=== PATIENT | female | born 1945 | race Caucasian/White ===

== ENCOUNTER → 2016-08-30 | Outpatient (CLI) | payer MEDICARE, MEDICAID ==
--- NOTE | 2016-09-01 13:34 | ECHOCARDIOGRAPHY REPORT ---
PROCEDURE PHYSICIAN: TATE LAURA DATE OF PROCEDURE: 08/30/2016 TWO DIMENSIONAL ECHOCARDIOGRAM REPORT PRIMARY PHYSICIAN: OTHER PHYSICIAN: REFERRING PHYSICIAN: Dr. Lexi Victor ORDERING PHYSICIAN: INDICATION FOR THE PROCEDURE: Hypertension MEASUREMENTS DERIVED VALUES LV DIAMETER (LAX) NORMALS NORMALS Diastolic 3.7 (3.6-5.2) Eject. Fract. 60% (60%+/-6%) Systolic (2.3-3.9) Diastolic Vol. % Shortening (0.22-0.42) Systolic Vol. Aortic Root IVS THICKNESS Diastolic 1. (0.6-1.1) LVPW THICKNESS Diastolic 1.1 (0.6-1.1) LA DIAMETER Systolic 2.4 (2.1-3.7) FINDINGS: 1. Technical quality is good. 2. The left ventricle is normal in size with normal contractility. Systolic function appeared to be normal. Estimated ejection fraction 60%. 3. The left atrium is normal in size. No clot or thrombus were seen within the left atrium. 4. The right atrium and right ventricle are normal in size. No clot or thrombus were seen within the right side. 5. Mitral valve is normal in morphology with mild mitral regurgitation noted by color Doppler flow. No mitral valve prolapse. No mitral valve stenosis. 6. Aortic valve is trileaflet with normal opening and closing pattern. No significant aortic stenosis or regurgitation was seen. 7. Tricuspid valve is normal in morphology with mild tricuspid regurgitation noted by color Doppler flow. Doppler across tricuspid valve estimated pulmonary artery pressure of 16+ right atrial pressure. 8. Pulmonic valve is functioning normally. 9. No pericardial effusion. CONCLUSION: 1. Normal left ventricular size and systolic function. Estimated ejection fraction 60%. 2. Mild mitral and tricuspid regurgitation. 3. Estimated pulmonary artery pressure of 25 mmHg. Job ID: [id number] Dictated Date: 09/01/2016 10:11:[address] Production Date: 09/01/2016 13:30:16 / felipe
== END ==
LOC: CARD 13:12
PROVIDERS: ATTEND Internal Medicine Cardiovascular Disease
DX: I12.9 Hypertensive chronic kidney disease with stage 1 through stage 4 chronic kidney disease, or unspecified chronic kidney disease (principal); E78.2 Mixed hyperlipidemia; N18.3 Chronic kidney disease, stage 3 (moderate); E13.9 Other specified diabetes mellitus without complications
CPT/HCPCS: 93306

== ENCOUNTER → 2017-03-10 | Outpatient (CLI) | payer MEDICARE, MEDICAID ==
--- NOTE | 2017-03-10 20:04 | Diagnostic Imaging Report ---
Bilateral screening mammogram 2D views with tomosynthesis The current study was also evaluated with a Computer Aided Detection (CAD) system. Indication: Screening. No current complaints stated on the questionnaire. COMPARISON: 02/17/15. FINDINGS: The breasts are composed of scattered fibroglandular densities. There are scattered benign appearing and vascular calcifications seen. Allowing for technique and positional differences, no suspicious change is seen. IMPRESSION: No significant change. ACR BI-RADS Category 2: Benign findings. Result letter will be mailed to the patient. Note: At least 10% of breast cancer is not imaged by mammography. Dictated by: Dictated on workstation # [id number]
== END ==
LOC: RAD 10:42
PROVIDERS: ATTEND Family Medicine
DX: Z12.31 Encounter for screening mammogram for malignant neoplasm of breast (principal)
CPT/HCPCS: 77067

== ENCOUNTER → 2017-06-27 | Outpatient (CLI) | payer MEDICARE, MEDICAID ==
--- NOTE | 2017-06-27 11:36 | Diagnostic Imaging Report ---
INDICATION: Chest pain and cough. TIME OF EXAM: 11:18 a.m. Correlation is made with prior study from 03/07/2011. FINDINGS: The heart size is normal. There is mild right convexity scoliotic curvature. No infiltrates are seen. No effusion or pneumothorax is identified. IMPRESSION: No acute cardiopulmonary process is detected. Dictated by: Dictated on workstation # [id number]
== END ==
LOC: RAD 10:49
PROVIDERS: ATTEND Family Medicine
DX: R07.9 Chest pain, unspecified (principal); R05 Cough
CPT/HCPCS: 71046

== ENCOUNTER → 2017-07-02 | Outpatient (CLI) | payer MEDICARE, MEDICAID ==
[~2017-07-02] MED LIST: REGADENOSON 0.4 MG/5 ML SYR (LEXISCAN) IV ONE
[2017-07-02] MEDS: CATHETER FLUSH 10 ML SYR IV PRN ×2 (09:15→10:14)
[2017-07-02 10:12] VITALS: BP 114/72
--- NOTE | 2017-07-02 14:15 | STRESS TEST ---
DATE OF SERVICE: 07/02/2017 LEXISCAN MYOVIEW STRESS TEST REPORT REFERRING PHYSICIAN: Lexi Victor MD Baseline heart rate is 86. Baseline blood pressure 126/71. Baseline EKG is sinus rhythm with no ischemic changes. SUMMARY: The patient received 10.03 mCi of technetium-99 Myoview and the resting images were obtained. Then, the patient received 0.4 mg of Lexiscan followed by 30.9 mCi of technetium-99 Myoview. Throughout the test, there were no EKG changes. The resting and stress images were reviewed and compared in the short axis, horizontal long axis, and vertical long axis views. Review of the images showed breast attenuation with mild apical thinning, no significant ischemia or infarction was seen. SSS is 3, SDS 3, TID value 1.06. On the gated images, the left ventricle appeared to be normal size with normal contractility. Calculated ejection fraction 62%. CONCLUSION: 1. The patient tolerated Lexiscan well. 2. Breast attenuation with no significant ischemia or infarction on SPECT images, mild apical thinning was noted. 3. Normal left ventricular size with normal contractility. Calculated ejection fraction 62%. Job ID: [id number] DocumentID: [id number] Dictated Date: 07/02/2017 13:57:15 Senior Principal Date: 07/02/2017 14:14:31 Dictated By: TATE LAURA MD
== END ==
LOC: CARD 08:41
PROVIDERS: ATTEND Internal Medicine Cardiovascular Disease
DX: I12.9 Hypertensive chronic kidney disease with stage 1 through stage 4 chronic kidney disease, or unspecified chronic kidney disease (principal); N18.3 Chronic kidney disease, stage 3 (moderate); E78.2 Mixed hyperlipidemia; E11.9 Type 2 diabetes mellitus without complications; K21.9 Gastro-esophageal reflux disease without esophagitis
CPT/HCPCS: 78452; 93017

== ENCOUNTER → 2018-03-18 | Outpatient (CLI) | payer MEDICARE, MEDICAID ==
--- NOTE | 2018-03-18 19:27 | Diagnostic Imaging Report ---
INDICATION: Routine screening. COMPARISON: Comparison is made with prior mammogram from 03/10/2017 and 02/17/2015. TECHNIQUE: 2-D and 3-D bilateral screening mammography was performed with computer-aided detection (CAD) system. FINDINGS: Scattered fibroglandular densities are identified bilaterally. The parenchymal pattern is stable. No mass or malignant appearing microcalcifications are seen. The axillae are unremarkable. IMPRESSION: No mammographic features suspicious for malignancy are identified. ACR BI-RADS Category 1: Negative. Result letter will be mailed to the patient. Note: At least 10% of breast cancer is not imaged by mammography. Dictated by: Dictated on workstation # [id number]
== END ==
LOC: RAD 11:13
PROVIDERS: ATTEND Family Medicine
DX: Z12.31 Encounter for screening mammogram for malignant neoplasm of breast (principal)
CPT/HCPCS: 77067

== ENCOUNTER 2018-07-16 09:00 | Outpatient (CLI) | payer MEDICARE, MEDICAID ==
[~2018-07-16] VITALS: Ht 152.4 cm; Wt 81.6 kg
[2018-07-16] MEDS ORDERED: CHOL20003 PO ×2 (13:02)
[2018-07-16] MEDS ORDERED: PANT40TA3 PO ×2 (13:02)
[2018-07-16] MEDS ORDERED: ONDA4TAB11 PO ×2 (13:02)
[2018-07-16] MEDS ORDERED: DIPH25CA79 PO ×2 (13:02)
[2018-07-16] MEDS ORDERED: MONT10TA21 PO ×2 (13:02)
[2018-07-16] MEDS ORDERED: FERR325T5 PO ×2 (13:02)
[2018-07-16] MEDS ORDERED: METF500T PO ×2 (13:02)
[2018-07-16] MEDS ORDERED: RT-ALBUINH IH ×2 (13:02)
[2018-07-16] MEDS ORDERED: ACET-2267 PO ×2 (13:02)
[2018-07-16] MEDS ORDERED: BUDE10.2 IH ×2 (13:02)
[2018-07-16] MEDS ORDERED: EUCA1LOZ28 MM ×2 (13:02)
[2018-07-16] MEDS ORDERED: POLY17PO6 PO ×2 (13:02)
[2018-07-16] MEDS ORDERED: MAGN400T29 PO ×2 (13:02)
[2018-07-16] MEDS ORDERED: FLUT9.9S NS ×2 (13:02)
[2018-07-16] MEDS ORDERED: MAGN400O7 PO ×2 (13:02)
[2018-07-16] MEDS ORDERED: GUAI237L82 PO ×2 (13:02)
[2018-07-16] MEDS ORDERED: LEVO88TA2 PO ×2 (13:02)
[2018-07-16] MEDS ORDERED: CALC500T7 PO ×2 (13:02)
[2018-07-16] MEDS ORDERED: MULT-351 PO ×2 (13:02)
[2018-07-16] MEDS ORDERED: ATOR40TA70 PO ×2 (13:02)
[2018-07-16] MEDS ORDERED: DOCU-250 PO ×2 (13:02)
[2018-07-16] MEDS ORDERED: NEOM28OI TP ×2 (13:02)
[2018-07-16] MEDS ORDERED: OMG1KC PO ×2 (13:02)
[2018-07-16] MEDS ORDERED: LISI-594 PO ×2 (13:02)
[2018-07-16] MEDS ORDERED: TETR15DR74 OP ×2 (13:02)
[2018-07-16] MEDS ORDERED: MECL-124 PO ×2 (13:02)
[2018-07-16] MEDS ORDERED: ACET325C5 PO ×2 (13:02)
[2018-07-17] MEDS ORDERED: SUCR1TAB36 PO ×2 (15:15)
[2018-07-17] MEDS ORDERED: DEXL60CA PO ×2 (15:15)
== END 2018-07-16 13:05 ==
LOC: PREOP 09:00
PROVIDERS: ATTEND Surgery
DX: Z01.818 Encounter for other preprocedural examination (principal)

== ENCOUNTER 2018-07-17 12:31 | Day surgery (SDC) | payer MEDICARE, MEDICAID ==
[~2018-07-17 12:31] MED LIST changes: +ACET-2267 PO; +ACET325C5 PO; +ATOR40TA70 PO; +BUDE10.2 IH; +CALC500T7 PO; +CHOL20003 PO; +DIPH25CA79 PO; +DOCU-250 PO; +EUCA1LOZ28 MM; +FERR325T5 PO; +FLUT9.9S NS; +GUAI237L82 PO; +LEVO88TA2 PO; +LISI-594 PO; +MAGN400O7 PO; +MAGN400T29 PO; +MECL-124 PO; +METF500T PO; +MONT10TA21 PO; +MULT-351 PO; +NEOM28OI TP; +OMG1KC PO; +ONDA4TAB11 PO; +PANT40TA3 PO; +POLY17PO6 PO; -REGADENOSON 0.4 MG/5 ML SYR (LEXISCAN) IV ONE; +RT-ALBUINH IH; +TETR15DR74 OP
--- NOTE | 2018-07-17 12:41 | Conscious Sedation/ASA ---
Conscious Sedation Pre-Proced Time 12:30 ASA Score 2 For ASA 3 and 4: Consider anesthesia and medical clearance. Also, for patients with a history of failed moderate sedation consider anesthesia. Airway Lungs Heart ASA score ASA 1: a normal healthy patient ASA 2: a patient with a mild systemic disease (mid diabetes, controlled hypertension, obesity ASA 3: a patient with a severe systemic disease that limits activity (angina , COPD, prior Myocardial infarction) ASA 4: a patient with an incapacitating disease that is a constant threat to life (CHF, renal failure) ASA 5: a moribund patient not expected to survive 24 hrs. (ruptured aneurysm) ASA 6: a declared brain- patient whose organs are being harvested. For emergent operations, add the letter E after the classification Mallampati Classification Grade 2 Sedation Plan Analgesia, Amnesia, Plan communicated to team members, Discussed options with patient/fam, Discussed risks with patient/fam The patient is an appropriate candidate to undergo the planned procedure, sedation, and anesthesia. The patient immediately re-assessed prior to indication. OSCAR ACOSTA MD Jul 17, 2018 12:41
--- NOTE | 2018-07-17 12:41 | Progress Note-Pre Operative ---
Pre-Operative Progress Note H&P Reviewed The H&P was reviewed, patient examined and no changes noted. Date Seen by Provider: Jul 17, 2018 Time Seen by Provider: 12:30 Date H&P Reviewed: Jul 17, 2018 Time H&P Reviewed: 12:30 Pre-Operative Diagnosis: OSCAR NAGEL MD Jul 17, 2018 12:41
--- NOTE | 2018-07-17 12:43 | Discharge Inst-Surgical ---
D/C Lap Instructions-DAVE Follow Up Activity as tolerated High Fiber Diet 25g or more per day Avoid Alcohol, Caffeine, Spicy Moffat and Acid foods. Drink 64 fluid oz or more of fluids per day. Symptoms to Report: Fever over 101 degree F, Nausea/Vomiting If any problems/questions: Contact your physician or go to Emergency Room OSCAR ACOSTA MD Jul 17, 2018 12:43
[2018-07-17] MEDS ORDERED: HYDROcodone/APAP 5 MG/325 MG (LORTAB) TAB PO PRN (12:45)
[2018-07-17] MEDS ORDERED: ONDANSETRON 4 MG/2 ML (SDV) Z0FRAN IV PRN (12:45)
[2018-07-17] MEDS ORDERED: morphine INJ 10 MG/ML 1ML (SYR OR VIAL) IV PRN (12:45)
[2018-07-17] MEDS ORDERED: ACETAMINOPHEN 325 MG TABLET PO PRN (12:45)
[2018-07-17] MEDS ORDERED: NS IV 500 ML 500 ML ONE (12:52)
[2018-07-17] MEDS ORDERED: NS IV 500 ML 500 ML IV PRN (13:28)
[2018-07-17] MEDS ORDERED: LIDOCAINE JELLY 2% 6 ML SYRINGE MM PRN (13:30)
[2018-07-17] MEDS ORDERED: HURRICAINE EXT TUBE (BENZOCAINE) XX PRN (13:30)
[2018-07-17 13:32] VITALS: BP 117/67
--- OUTSIDE RECORDS SUMMARY | 2018-07-17 13:55 | XMS REPORT ---
Author Author PAUL BAUGH Organization [facility] Address [address] [place] [address] Care Team Providers Care Paper Cutter Name Role Phone PAUL BAUGH Unavailable PROBLEMS Unknown Problems ALLERGIES Substance Reaction Event Type Date Status MRI dye Unknown Non Drug Allergy Jan, Active Contrast dye Unknown Non Drug Allergy Jan, Active NSAIDS Unknown Non Drug Allergy Jan, Active ENCOUNTERS Encounter Location Date Diagnosis [facility] [id number] [place], [place] [id number] Jan, Dental examination Z01.20 [facility] [address] [place] [id number] Jan, Dental examination Z01.20 IMMUNIZATIONS No Known Immunizations SOCIAL HISTORY Never Assessed REASON FOR VISIT Adult prophylaxis PLAN OF CARE VITAL SIGNS Blood pressure systolic 120 mmHg 2018-01-29 Blood pressure diastolic 82 mmHg 2018-01-29 MEDICATIONS No Known Medications RESULTS No Results PROCEDURES Procedure Date Ordered Result Body Site PROPHYLAXIS - ADULT Jan 29, 2018 TOPICAL FLUORIDE VARNISH Jan 29, 2018 INTERIM CARIES ARRESTING MED APPLIC Jan 29, 2018 INSTRUCTIONS MEDICATIONS ADMINISTERED No Known Medications MEDICAL (GENERAL) HISTORY Type Description Date Medical History Mild MR Medical History Chronic kidney disease Medical History Type II diabetes Medical History Gastro-esophageal reflux Medical History diaphragmatic hernia without obstruction Medical History asthma Medical History HBP Medical History Osteoporosis Medical History hypothyroidism Medical History magnesium deficiency
--- OUTSIDE RECORDS SUMMARY | 2018-07-17 13:55 | XMS REPORT | Continuity of Care Document ---
Author Author [facility] Organization [facility] Address Unknown Phone Unavailable Allergies Active Description Code Type Severity Reaction Onset Reported/Identified Relationship to Patient Clinical Status Yes NO KNOWN DRUG ALLERGIES UNKNOWN NO KNOWN DRUG ALLERG Yes No Known Drug Allergies [id number] Drug Allergy Unknown N/A 02/26/2010 Medications Medication Packaging Start Date Stop Date Route Dosage Sig FERAHEME 510 MG/17 ML VIAL (ferumoxytol) IV solution MGS 10/16/2016 10/16/2016 [id number] Problems Date Dx Coded Attending Type Code Diagnosis Diagnosed By 02/17/2015 TY OCASIO MD Ot V76.12 03/13/2015 TY OCASIO MD Ot V76.12 03/20/2015 TY OCASIO MD Ot V76.12 08/30/2016 TY OCASIO MD Ot V76.12 OTH SCREEN MAMMO-MALIGN NEOPLASM OF SUHA 08/30/2016 TY OCASIO MD Ot V76.12 OTH SCREEN MAMMO-MALIGN NEOPLASM OF SUHA 08/30/2016 TY OCASIO MD Ot V76.12 OTH SCREEN MAMMO-MALIGN NEOPLASM OF SUHA 08/30/2016 TY OCASIO MD Ot V76.12 OTH SCREEN MAMMO-MALIGN NEOPLASM OF SUHA 10/09/2016 TATE LAURA MD Ot E13.9 OTHER SPECIFIED DIABETES MELLITUS WITHOU 10/09/2016 TATE LAURA MD Ot E78.2 MIXED HYPERLIPIDEMIA 10/09/2016 TATE LAURA MD Ot I12.9 HYPERTENSIVE CHRONIC KIDNEY DISEASE W ST 10/09/2016 TATE LAURA MD Ot N18.3 CHRONIC KIDNEY DISEASE, STAGE 3 (MODERAT 10/16/2016 TY OCASIO 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 10/16/2016 TY OCASIO 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 10/23/2016 OCASIO, TY A 280.9 IRON DEFICIENCY ANEMIA, UNSPECIFIED 10/23/2016 YT OCASIO A D50.9 IRON DEFICIENCY ANEMIA, UNSPECIFIED 02/20/2017 TY OCASIO MD Ot Z12.31 ENCNTR SCREEN MAMMOGRAM FOR MALIGNANT NE 04/02/2017 TY OCASIO MD Ot Z12.31 ENCNTR SCREEN MAMMOGRAM FOR MALIGNANT NE 04/09/2017 TY OCASIO MD Ot Z12.31 ENCNTR SCREEN MAMMOGRAM FOR MALIGNANT NE 06/30/2017 TY OCASIO MD Ot R05 COUGH 06/30/2017 TY OCASIO MD Ot R07.9 CHEST PAIN, UNSPECIFIED 07/02/2017 Ot 793.89 OTH (ABN) FINDINGS ON RADIOLOGICAL EXAMI 07/02/2017 Ot V76.12 OTH SCREEN MAMMO-MALIGN NEOPLASM OF SUHA 07/02/2017 TY OCASIO MD Ot 793.80 UNSPEC ABNORMAL MAMMOGRAM 07/03/2017 TATE LAURA MD Ot E11.9 TYPE 2 DIABETES MELLITUS WITHOUT COMPLIC 07/03/2017 TATE LAURA MD Ot E78.2 MIXED HYPERLIPIDEMIA 07/03/2017 TATE LAURA MD Ot I12.9 HYPERTENSIVE CHRONIC KIDNEY DISEASE W ST 07/03/2017 TATE LAURA MD Ot K21.9 GASTRO-ESOPHAGEAL REFLUX DISEASE WITHOUT 07/03/2017 TATE LAURA MD Ot N18.3 CHRONIC KIDNEY DISEASE, STAGE 3 (MODERAT 07/17/2017 TY OCASIO MD Ot R05 COUGH 07/17/2017 TY OCASIO MD Ot R07.9 CHEST PAIN, UNSPECIFIED 07/23/2017 TATE LAURA MD Ot E11.9 TYPE 2 DIABETES MELLITUS WITHOUT COMPLIC 07/23/2017 TATE LAURA MD Ot E78.2 MIXED HYPERLIPIDEMIA 07/23/2017 TATE LAURA MD Ot I12.9 HYPERTENSIVE CHRONIC KIDNEY DISEASE W ST 07/23/2017 TATE LAURA MD Ot K21.9 GASTRO-ESOPHAGEAL REFLUX DISEASE WITHOUT 07/23/2017 TATE LAURA MD Ot N18.3 CHRONIC KIDNEY DISEASE, STAGE 3 (MODERAT 08/04/2017 TY OCASIO MD L Ot R05 COUGH 08/04/2017 TY OCASIO MD Ot R07.9 CHEST PAIN, UNSPECIFIED 03/12/2018 TY OCASIO MD Ot Z12.31 ENCNTR SCREEN MAMMOGRAM FOR MALIGNANT NE 03/18/2018 TY OCASIO MD Ot 793.80 UNSPEC ABNORMAL MAMMOGRAM 03/18/2018 TATE LAURA MD Ot E11.9 TYPE 2 DIABETES MELLITUS WITHOUT COMPLIC 03/18/2018 TATE LAURA MD Ot E78.2 MIXED HYPERLIPIDEMIA 03/18/2018 TATE LAURA MD Ot I12.9 HYPERTENSIVE CHRONIC KIDNEY DISEASE W ST 03/18/2018 TATE LAURA MD Ot K21.9 GASTRO-ESOPHAGEAL REFLUX DISEASE WITHOUT 03/18/2018 TATE LAURA MD Ot N18.3 CHRONIC KIDNEY DISEASE, STAGE 3 (MODERAT 03/18/2018 TY OCASIO MD, Ot Z12.31 ENCNTR SCREEN MAMMOGRAM FOR MALIGNANT NE 03/23/2018 TY OCASIO MD, Ot Z12.31 ENCNTR SCREEN MAMMOGRAM FOR MALIGNANT NE Procedures There is no data. Results There is no data. Encounters ACCT No. Visit Date/Time Discharge Status Pt. Type Provider Facility Loc./Unit Complaint [id number] 07/16/2018 09:00:00 07/16/2018 13:05:00 DIS Outpatient OSCAR ACOSTA MD [facility] PREOP EGD [id number] 03/18/2018 11:13:00 03/18/2018 23:59:59 CLS Outpatient TY OCASIO MD [facility] RAD SCREEN BREAST CA [id number] 07/31/2017 13:35:00 07/31/2017 23:59:59 CLS Preadmit TY OCASIO MD [facility] RAD SCREENING [id number] 07/02/2017 08:41:00 07/02/2017 23:59:59 CLS Outpatient TATE LAURA MD [facility] CARD I10,E78.2 [id number] 06/27/2017 10:49:00 06/27/2017 23:59:59 CLS Outpatient TY OCASIO MD [facility] RAD CHEST PAIN [id number] 03/10/2017 10:42:00 03/10/2017 23:59:59 CLS Outpatient TY OCASIO MD [facility] RAD SCREENING Z12.31 [id number] 08/30/2016 13:12:00 08/30/2016 23:59:59 CLS Outpatient TATE LAURA MD [facility] CARD HTN,DIABETES [id number] 02/17/2015 10:13:00 02/17/2015 23:59:59 CLS Outpatient TY OCASIO MD [facility] RAD SCREENING [id number] 12/30/2013 13:25:00 12/30/2013 23:59:59 CLS Outpatient TY OCASIO MD [facility] RAD SCREENING [id number] 10/27/2012 13:14:00 10/27/2012 23:59:59 CLS Outpatient TY OCASIO MD [facility] RAD ABN MAMMO,THREE MONTH FOLLOW-UP [id number] 07/17/2018 12:31:00 ACT Outpatient OSCAR ACOSTA MD [facility] ENDO REFLUX [id number] 06/22/2012 10:33:00 Document Registration [id number] 10/23/2016 08:17:00 10/23/2016 09:50:00 DIS Outpatient TY OCASIO [id number] 10/16/2016 13:02:00 10/16/2016 15:15:00 DIS Outpatient TY OCASIO [id number] 10/16/2016 15:23:54 Document Registration
--- OUTSIDE RECORDS SUMMARY | 2018-07-17 13:55 | XMS REPORT ---
Author Author ARGELIA COWAN Organization [facility] Address Unknown Care Team Providers Care Art Librarian Name Role Phone ARGELIA COWAN Unavailable PROBLEMS Unknown Problems ALLERGIES Substance Reaction Event Type Date Status MRI dye Unknown Non Drug Allergy Jan, Active Contrast dye Unknown Non Drug Allergy Jan, Active NSAIDS Unknown Non Drug Allergy Jan, Active ENCOUNTERS Encounter Location Date Diagnosis [facility] [id number] [place] [phone] Jan, Dental examination Z01.20 [facility] [id number] [place] [phone] Jan, Dental examination Z01.20 IMMUNIZATIONS No Known Immunizations SOCIAL HISTORY Never Assessed REASON FOR VISIT dental est. care./ PLAN OF CARE Activity Details Follow Up prn Reason:hygiene VITAL SIGNS MEDICATIONS Medication Instructions Dosage Frequency Start Date End Date Duration Status Flonase Active Visine Active Magnesium Active Benadryl Active Synthroid Active Ferrous Sulfate Active Glucophage Active Aspirin 81 Active Multi Vitamin Active Tylenol Extra Strength Active Symbicort Active Fosamax Active Milk of Magnesia Active Meclizine HCl Active Zestril Active MiraLax Active Docusate Sodium Active Fish Oil Active Prilosec Active Atorvastatin Calcium Active Vitamin D3 Active Ventolin HFA Active Singulair Active RESULTS No Results PROCEDURES Procedure Date Ordered Result Body Site COMP ORAL EVALUATION - NEW/EST PT Jan 29, 2018 INTRAORL-PERIAPICAL 1 FILM [id number] Jan 29, 2018 INTRAORL-PERIAPICAL EA ADD FILM Jan 29, 2018 INSTRUCTIONS MEDICATIONS ADMINISTERED No Known Medications MEDICAL (GENERAL) HISTORY Type Description Date Medical History Mild MR Medical History Chronic kidney disease Medical History Type II diabetes Medical History Gastro-esophageal reflux Medical History diaphragmatic hernia without obstruction Medical History asthma Medical History HBP Medical History Osteoporosis Medical History hypothyroidism Medical History magnesium deficiency
[2018-07-17] MEDS ORDERED: fentaNYL INJECTION 100 MCG/2 ML AMP ONE (14:35)
[2018-07-17] MEDS ORDERED: LIDOCAINE JELLY 2% 6 ML SYRINGE ONE (14:35)
[2018-07-17] MEDS ORDERED: MIDAZOLAM 2 MG/2 ML (VERSED) VIAL ONE ×3 (14:35→14:36)
[2018-07-17] MEDS ORDERED: HURRICAINE EXT TUBE (BENZOCAINE) ONE (14:36)
[2018-07-17] MEDS: fentaNYL INJECTION 100 MCG/2 ML AMP IVP PRN ×2 (14:50→14:53)
[2018-07-17] MEDS: MIDAZOLAM 2 MG/2 ML (VERSED) VIAL IVP PRN ×2 (14:51→14:54)
--- NOTE | 2018-07-17 15:13 | Progress Note-Post Operative ---
Post-Operative Progess Note Surgeon (s)/Hand Stamper (s) Surgeon OSCAR ACOSTA MD Hand Stamper: none Pre-Operative Diagnosis GERD Post-Operative Diagnosis reflux esophagitis(stage 2), small HH(1.5cm), moderate gastritis. Procedure & Operative Findings Date of Procedure 07/17/18 Procedure Performed/Findings EGD with bx. Anesthesia Type CS Estimated Blood Loss Estimated blood loss (mL): minimal Specimens/Packing Specimens Removed ge jxn, antrum OSCAR ACOSTA MD Jul 17, 2018 15:13
[2018-07-17] MEDS ORDERED: DEXL60CA PO ×2 (15:15)
[2018-07-17] MEDS ORDERED: SUCR1TAB36 PO ×2 (15:15)
[2018-07-17 15:20] VITALS: BP 93/51
[2018-07-17 15:48] VITALS: BP 102/57
[2018-07-17 15:50] VITALS: BP 102/57
--- NOTE | 2018-07-18 01:38 | OPERATIVE REPORT ---
DATE OF SERVICE: 07/17/2018 ATTENDING PRIMARY CARE PHYSICIAN: Dr. Victor. PREOPERATIVE DIAGNOSIS: Gastroesophageal reflux disease. POSTOPERATIVE DIAGNOSES: Reflux esophagitis stage II, small hiatal hernia approximately 1.5 cm in size, moderate severity gastritis. PROCEDURE: EGD with biopsy. SURGEON: Oscar Acosta MD ANESTHESIA: Conscious sedation. ESTIMATED BLOOD LOSS: Minimal. FINDINGS: Reflux esophagitis stage II, small hiatal hernia approximately 1.5 cm in size, moderate severity gastritis with patchy areas of gastritis; however, no formal ulcerations. No distal obstructions. DISPOSITION: The patient tolerated the procedure well. INDICATIONS: The patient is a 72-year-old female referred over to us for epigastric burning sensation as well as occasional regurgitation and cough. She has had two upper endoscopies in the past. She was currently on Protonix; however, reports minimal relief. For the past few months, this has worsened despite medical management. She states any food would trigger her symptoms. She does not report any former episodes of nausea or vomiting. She also does not report any change in bowel habits. DESCRIPTION OF PROCEDURE: The patient was brought to the endoscopy suite, laid in left lateral decubitus position. After adequate IV pain and sedative medications and conscious sedation anesthesia, the mouthpiece was applied. Endoscope was placed in the mouth, visualizing the pharynx and hypopharyngeal region. Vocal cords, epiglottis and vallecula identified and appeared to be normal. The endoscope was gently intubated at the esophageal opening and the esophagus was insufflated. The endoscope was then advanced to the first, second and third portions of the esophagus at the level of the GE junction, a reflux esophagitis stage II was identified. There were no ulcers or strictures identified in this region. A biopsy was taken with forceps with visualization of good hemostasis. The endoscope was then advanced in the stomach and endoscope retroflexed, visualizing a small hiatal hernia approximately 1.5 cm in size. There was a moderate severity gastritis, which was patchy in nature; however, no formal ulcerations. A biopsy was taken of the antrum to rule out H. pylori with forceps with visualization of good hemostasis. The endoscope was then advanced to the pylorus and the first and second portion of the duodenum with no ulcerations identified as well as no distal obstructions. The endoscope was then slowly withdrawn while taking a second look and suctioning of residual air with no additional findings. The patient tolerated the procedure well. We will recommend conservative management with the necessary lifestyle and diet accommodation including small and more frequent meals, avoidance of eating at night as well as head elevation while lying supine. It appears that pantoprazole has become ineffective and we will try and proceed with a trial of Dexilant 60 mg daily as well as adding Carafate 1 gram b.i.d. for at least a week and then on a p.r.n. basis. If she has recurrent symptoms of the nausea and vomiting, this may be a gallbladder etiology. We will get an ultrasound and possible HIDA scan to rule odut a gallbladder source. Job ID: [id number] DocumentID: [id number] Dictated Date: 07/17/2018 15:04:59 Knowledge Management Advisor Date: 07/18/2018 01:37:50 Dictated By: OSCAR ACOSTA MD
== END 2018-07-17 16:05 | disposition home or self-care (01) ==
LOC: ENDO 12:31
PROVIDERS: ATTEND Surgery
DX: K21.0 Gastro-esophageal reflux disease with esophagitis (principal); K44.9 Diaphragmatic hernia without obstruction or gangrene; K29.70 Gastritis, unspecified, without bleeding; E11.22 Type 2 diabetes mellitus with diabetic chronic kidney disease; N18.9 Chronic kidney disease, unspecified; E78.5 Hyperlipidemia, unspecified; J45.909 Unspecified asthma, uncomplicated; E03.9 Hypothyroidism, unspecified; K59.00 Constipation, unspecified; Z79.84 Long term (current) use of oral hypoglycemic drugs; Z79.899 Other long term (current) drug therapy; Z87.891 Personal history of nicotine dependence

== ENCOUNTER → 2018-11-27 | Outpatient (CLI) | payer MEDICARE, MEDICAID ==
[~2018-11-27] MED LIST changes: +DEXL60CA PO; +SUCR1TAB36 PO
--- NOTE | 2018-11-27 11:51 | Diagnostic Imaging Report ---
EXAM: THORACIC SPINE, 2 VIEWS ONLY INDICATION: Back pain. COMPARISON: None. FINDINGS: Advanced right apex thoracic curvature. Moderate diffuse degenerative endplate changes. Vertebral body heights appear preserved but are obscured by the curvature on the lateral projection. Atherosclerotic calcifications. The visualized lung mendoza are clear. IMPRESSION: Moderate degenerative endplate changes and advanced right apex thoracic curvature. No acute radiographic findings are identified. Dictated by: Dictated on workstation # [id number]
== END ==
LOC: RAD 10:58
PROVIDERS: ATTEND Family Medicine
DX: M47.814 Spondylosis without myelopathy or radiculopathy, thoracic region (principal)
CPT/HCPCS: 72070

== ENCOUNTER 2019-07-19 21:15 | Emergency (ER) | payer MEDICARE, MEDICAID ==
[~2019-07-19] VITALS: Ht 160 cm; Wt 85.5 kg
[~2019-07-19 21:15] MED LIST changes: -ACET325C5 PO; +ACET325C7 PO
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
[2019-07-19 23:40] VITALS: BP 141/79
--- NOTE | 2019-07-20 06:25 | Diagnostic Imaging Report ---
HISTORY: Left ankle pain and swelling TECHNIQUE: 3 views of the left ankle COMPARISON: None FINDINGS: There is moderate soft tissue swelling about the left ankle. No acute fracture is seen. Alignment appears normal. Ankle mortise is symmetric and the talar dome is intact. No significant tibiotalar joint effusion is seen. Small enthesophytes are seen at the calcaneus. IMPRESSION: 1. Moderate soft tissue swelling about the left ankle with no acute osseous abnormality seen. Dictated by: Dictated on workstation # [id number]
== END 2019-07-19 23:42 | disposition home or self-care (01) ==
LOC: EDUNIT# 21:15 → ER 21:17
DX: S93.402A Sprain of unspecified ligament of left ankle, initial encounter (principal); E11.22 Type 2 diabetes mellitus with diabetic chronic kidney disease; I12.9 Hypertensive chronic kidney disease with stage 1 through stage 4 chronic kidney disease, or unspecified chronic kidney disease; N18.3 Chronic kidney disease, stage 3 (moderate); E78.00 Pure hypercholesterolemia, unspecified; J45.909 Unspecified asthma, uncomplicated; K21.9 Gastro-esophageal reflux disease without esophagitis; D64.9 Anemia, unspecified; Z79.51 Long term (current) use of inhaled steroids; W50.1XXA Accidental kick by another person, initial encounter
CPT/HCPCS: 73610

== ENCOUNTER 2020-02-23 09:31 | Outpatient (CLI) | payer MEDICARE, MEDICAID ==
[~2020-02-23 09:31] MED LIST changes: -PANT40TA3 PO; +PANT40TA52 PO
[2020-02-23] MEDS ORDERED: GLIM1TAB4 PO (13:09)
[2020-02-24] MEDS ORDERED: ACHD5005 PO (09:19)
[2020-02-24] MEDS ORDERED: RT-ALBUINH INH (09:36)
[2020-02-24] MEDS ORDERED: SUCR1TAB36 PO (09:36)
[2020-02-24] MEDS ORDERED: CHOL200012 PO (09:36)
[2020-02-24] MEDS ORDERED: FERR-84 PO (09:36)
[2020-02-24] MEDS ORDERED: CYCL5TAB PO (09:36)
[2020-02-24] MEDS ORDERED: MULT-1136 PO (09:36)
[2020-02-24] MEDS ORDERED: OMEG-160 PO (09:36)
[2020-02-24] MEDS ORDERED: MAGN400T50 PO (09:36)
[2020-02-24] MEDS ORDERED: DOCU100C37 PO (09:36)
== END 2020-02-23 13:15 | disposition home or self-care (01) ==
LOC: PREOP 09:31
PROVIDERS: ATTEND Surgery
DX: Z01.818 Encounter for other preprocedural examination (principal)

== ENCOUNTER → 2020-04-10 | Outpatient (CLI) | payer MEDICARE, MEDICAID ==
[~2020-04-10] VITALS: Ht 152 cm; Wt 97.0 kg
[~2020-04-10] MED LIST changes: +ACHD5005 PO; +CATHETER FLUSH 10 ML SYR IV PRN; +CEFD300C3 PO; +CHOL200012 PO; +CYCL5TAB PO; +DOCU100C37 PO; +FERR-84 PO; +GLIM1TAB4 PO; +MAGN400T50 PO; +MULT-1136 PO; +OMEG-160 PO; +PRED10TA22 PO; +REGADENOSON 0.4 MG/5 ML SYR (LEXISCAN) IV ONE; +RT-ALBUINH INH
[2020-04-10 09:24] VITALS: BP 146/78
--- NOTE | 2020-04-10 11:08 | Cardiology Stress Test Report ---
Stress Test Report Date of Procedure/Referring: Date of Procedure: Apr 10, 2020 PCP Kika Hendrix Admitting Physician Lexi Victor MD Indications: Hypertension, diabetes mellitus Baseline Heart Rate: 89 Baseline Blood Pressure: Blood Pressure Systolic: 146 Blood Pressure Diastolic: 78 Baseline Vitals Vital Signs Date Time Temp Pulse Resp B/P (MAP) Pulse Ox O2 Delivery O2 Flow Rate FiO2 04/10/20 09:24 89 146/78 (100) 99 Baseline EKG: Baseline EKG: normal sinus rhythm Summary After explaining the procedure to the patient, she signed a consent and then brought to the stress nuclear laboratory. Patient received 0.4 mg Lexiscan for stress test, ECG, heart rate and blood pressure were monitored continuously. Resting and stress dose of radio tracer were injected, imaging was acquired and reviewed in short axis, horizontal long axis and vertical long axis views. TID: 1.04 SSS: 5 SDS: 5 EF: 64 1. Patient tolerated Lexiscan well 2. Breast attenuation with mild reversible ischemia involving the basal to mid anterior wall and anterior septum, probably secondary to breast attenuation 3. Normal left ventricular size, EF 64 percent TATE LAURA MD Apr 10, 2020 11:08
== END ==
LOC: CARD 08:30
PROVIDERS: ATTEND Physician Assistant
DX: I25.9 Chronic ischemic heart disease, unspecified (principal); I10 Essential (primary) hypertension; E11.9 Type 2 diabetes mellitus without complications; E78.2 Mixed hyperlipidemia; U07.1 COVID-19
CPT/HCPCS: 78452; 93017; 93306; A9502

== ENCOUNTER 2020-04-26 10:50 | Day surgery (SDC) | payer MEDICARE, MEDICAID ==
[2020-04-26] VITALS (10 sets, daily range): BP systolic 115–165; BP diastolic 59–83
[~2020-04-26] VITALS: Ht 152 cm; Wt 97.0 kg
[~2020-04-26 10:50] MED LIST changes: -CATHETER FLUSH 10 ML SYR IV PRN; -REGADENOSON 0.4 MG/5 ML SYR (LEXISCAN) IV ONE
[2020-04-26] MEDS ORDERED: LIDOCAINE 1% INJ 20 ML 20 ML VIAL ONE (11:02)
[2020-04-26] MEDS ORDERED: NS IV 1000 ML 1,000 ML ONE (11:03)
[2020-04-26] MEDS ORDERED: HEParin (CATH LAB) 2,000 ML IV ONE (11:03)
[2020-04-26] MEDS ORDERED: NS IV 1000 ML 1,000 ML IV SCH ×2 (11:15→13:45)
[2020-04-26 11:44] LABS: HEMOGLOBIN 10.1 g/dL (11.5-16.0); MEAN PLATELET VOLUME 10.7 fL (9.0-12.2)
--- NOTE | 2020-04-26 11:48 | Diagnostic Imaging Report ---
INDICATION: Chest pain with history of hypertension and diabetes. Assessment prior to heart catheterization. TECHNIQUE: Single-view chest at 11:32 a.m. CORRELATION STUDY: 02/25/2020. FINDINGS: Heart size is enlarged but stable. Calcification of the aortic arch. Vasculature is overall within normal limits. Rightward curvature of the thoracic spine is present. Lung mendoza overall appear to be generally clear without definitive infiltrate. IMPRESSION: 1. Stable heart size. No evidence for failure or significant infiltrate. Dictated by: Dictated on workstation # [id number]
[2020-04-26 11:55] LABS: PROTHROMBIN TIME PATIENT 13.5 SEC (12.2-14.7)
[2020-04-26 12:01] LABS: ALANINE AMINOTRANSFERASE 13 U/L (0-55); ALKALINE PHOSPHATASE 100 U/L (40-136); BILIRUBIN,TOTAL 0.3 MG/DL (0.1-1.0); BUN/CREATININE RATIO 17; CALCIUM 9.4 MG/DL (8.5-10.1); CARBON DIOXIDE 26 MMOL/L (21-32); CHLORIDE 106 MMOL/L (98-107); CHOLESTEROL 229 MG/DL (< 200); CREATININE SERUM 1.35 MG/DL (0.60-1.30); GFR ESTIMATED 39; GLUCOSE 131 MG/DL (70-105); HDL CHOLESTEROL 42 MG/DL (40-60); POTASSIUM 3.9 MMOL/L (3.6-5.0); SODIUM 145 MMOL/L (135-145); TOTAL PROTEIN 7.5 GM/DL (6.4-8.2); TRIGLYCERIDES 490 MG/DL (<150)
[2020-04-26] MEDS ORDERED: methylPREDNISolone 125 MG (Solu-MEDROL) VIAL ONE (12:02)
[2020-04-26] MEDS ORDERED: diphenhydrAMINE 50 MG/ML INJ (BENADRYL) ONE (12:02)
[2020-04-26] MEDS ORDERED: FLUT9.9S NSEACH (12:10)
[2020-04-26] MEDS ORDERED: GUAI-585 PO (12:10)
[2020-04-26] MEDS ORDERED: CALC500T64 PO (12:10)
[2020-04-26] MEDS ORDERED: PEG15DRO9 OU (12:10)
[2020-04-26] MEDS ORDERED: MECL-149 PO (12:10)
[2020-04-26] MEDS ORDERED: BUDE10.2 INH (12:10)
[2020-04-26] MEDS ORDERED: LOPE2CAP PO (12:10)
[2020-04-26] MEDS ORDERED: CYCL5TAB PO (12:10)
[2020-04-26] MEDS ORDERED: MAGN400O7 PO (12:10)
[2020-04-26] MEDS ORDERED: DEXL60CA PO (12:10)
[2020-04-26] MEDS ORDERED: POLY17PO6 PO (12:10)
[2020-04-26] MEDS ORDERED: CALC300T4 PO (12:10)
[2020-04-26] MEDS ORDERED: DIPH25TA65 PO (12:10)
--- NOTE | 2020-04-26 12:15 | NUR ---
I SPOKE WITH PATIENT'S VISITOR, WENT THROUGH THE MED LIST BROUGHT FROM HOME, WENT THROUGH THE EXTERNAL MED HISTORY AND CALLED [facility] IN [place] TO HELP ME COMPLETE THIS MED REC. FILL DATES FROM [facility]: 02/01/20 VENTOLIN 02/15/20 SYMBICORT 04/05/20 LIPITOR 40MG #30 04/05/20 CYCLOBENZAPRINE 5MG #60 04/05/20 DEXILANT 60MG #30 04/05/20 LEVOTHYROXINE 88MCG #30 04/05/20 SINGULAIR 10MG #30 04/05/20 SUCRALFATE 1GM #60 OTC: TYLENOL MULTI VITAMIN MAGNESIUM OXIDE FERROUS SULFATE VITAMIN D3 COLACE FISH OIL ROBITUSSIN VISINE FLONASE BENADRYL MECLIZINE LOPERAMIDE MILK OF MAG MIRALAX TUMS
[2020-04-26] MEDS ORDERED: HEParin 1000 UNIT/ML (10ML VIAL) FOR BOLUS ONE (12:33)
[2020-04-26] MEDS ORDERED: fentaNYL INJECTION 100 MCG/2 ML AMP ONE (12:33)
[2020-04-26] MEDS ORDERED: NITRO DRIP 25000 MCG/D5W 250 ML IV ONE (12:33)
[2020-04-26] MEDS ORDERED: MIDAZOLAM 5 MG/5 ML (VERSED) VIAL ONE (12:33)
[2020-04-26] MEDS ORDERED: VERAPAMIL 5 MG/2 ML (CALAN) VIAL IV ONE (12:33)
[2020-04-26] MEDS ORDERED: meTOprolol 5 MG/5 ML (LOPRESSOR) VIAL ONE (13:37)
[2020-04-26] MEDS ORDERED: TICAGRELOR 90 MG TABLET (BRILINTA) PO ONE (13:38)
[2020-04-26] MEDS ORDERED: ASPIRIN 325 MG (5 GR) TABLET ONE (13:38)
[2020-04-26] MEDS ORDERED: NON-FORMULARY MEDICATION 1 EA EA (Calcium Carbonate 500 MG) PO PRN (13:45)
[2020-04-26] MEDS ORDERED: CALCIUM CARBONATE 600 MG PO PRN (13:45)
[2020-04-26] MEDS ORDERED: diphenhydrAMINE 25 MG TAB (BENADRYL) PO PRN (13:45)
--- NOTE | 2020-04-26 13:54 | Cardiac Cath Report ---
Cardiac Cath Report Physician (s)/Ingot Caster (s) Physician TATE LAURA MD Pre-Procedure Diagnosis Pre-Procedure Diagnosis: coronary artery disease Post-Procedure Note Procedure Start Date: Apr 26, 2020 Name of Procedure: Left heart catheterization Stent to the LAD Findings/Procedure Note PROCEDURE NOTE: 74-year-old lady with history of shortness of breath on exertion, had an abnormal stress test scheduled for cardiac catheterization possible PTCA. After explaining the procedure to the patient, all pros and cons were explained, all questions were answered. The patient signed the consent and then she was placed on the cardiac catheterization laboratory. Groin was prepped SL fashion local anesthesia was used. Sheath placed in the right radial artery. Esko catheter advanced to the left ventricular cavity, pressure was measured and pullback LV to aorta was then advanced in the left coronary system and angiogram was done, I was unable to intubate the right carotid system, I exchanged the catheter into FR catheter and advanced into the right coronary artery and angiogram was done. Patient had moderate severe lesion in the mid LAD, received a total of 6000 units of heparin, EBU guide was advanced to the left coronary system, BMW wire was advanced and parked distally then predilated location with Trek balloon 2.5 x 15 mm with 1 inflation then I advanced drug-eluting stent Susan 2.5 x 12 mm positioned carefully after the second diagonal artery, deployed under 12 alex to 2.6 mm with excellent results. At the end of the procedure the sheath was removed. Vascular band was used FINDINGS: Hemodynamics LV 129/14 end-diastolic pressure 14 Aorta 125/71 mean of 94 ANATOMY: Left Main is free of obstructive disease Left Anterior Descending has 70 percent stenosis at the mid to distal portion successful stenting using Susan 2.5 x 12 mm expanded to 2.6 mm with excellent results Left Circumflex is moderate in size with no obstructive disease Right Coronory Artery is large dominant artery with mild disease nonobstructive disease LV Gram was not done, pressure was measured CONCLUSION: 1. Severe mid LAD stenosis successful stenting using Susan 2.5 x 12 mm expanded to 2.6 mm with excellent results 2. Otherwise mild to moderate coronary artery disease nonobstructive disease 3. Normal left ventricular end-diastolic pressure DISCUSSION AND RECOMMENDATION: Patient was started on aspirin and Brilinta. Continue medication, titrate her cholesterol and blood pressure medication Anesthesia Type: Conscious Sedation Estimated blood loss (mL): 25 ml Contrast Amount: 86 ml Total Radiation Dose: 825 mGy Post-Procedure Diagnosis Post-operative diagnosis: Chest pain Coronary artery disease Hypertension Hyperlipidemia TATE LAURA MD Apr 26, 2020 13:54
[2020-04-26] MEDS ORDERED: lisINopril 20 MG (PRINIVIL) TABLET PO SCH (14:00)
[2020-04-26] MEDS ORDERED: LACTATED RINGERS 1,000 ML IV PRN (14:37)
--- NOTE | 2020-04-26 17:39 | NUR ---
1700- pressure device has been removed from the patient's right wrist. site was dry and clean. Pt reports no pain or discomfort at cath site. 1715- pt was transported to 5th floor room 507. Report was given to nurse.
[2020-04-26] MEDS ORDERED: CALCIUM CARBONATE 500 MG (TUMS) TAB.CHEW PO PRN (19:00)
[2020-04-26] MEDS: FERROUS SULF 325 MG (IRON) TAB PO SCH (20:37)
[2020-04-26] MEDS: DOCUSATE SODIUM 100 MG (COLACE) CAP PO SCH (20:41)
[2020-04-26] MEDS: CYCLOBENZAPRINE 10 MG (FLEXERIL) TAB PO SCH (20:41)
[2020-04-26] MEDS: TICAGRELOR 90 MG TABLET (BRILINTA) PO SCH (20:42)
[2020-04-26] MEDS ORDERED: NON-FORMULARY MEDICATION 1 EA EA (Budesonide/Formoterol Fumarate (Symbicort 160-4.5 Mcg In INH SCH (21:00)
[2020-04-26] MEDS ORDERED: NON-FORMULARY MEDICATION 1 EA EA (Cyclobenzaprine HCl 5 MG) PO SCH (21:00)
[2020-04-26] MEDS ORDERED: MONTELUKAST 10 MG (SINGULAIR) TAB PO SCH (21:00)
[2020-04-26] MEDS: ADVAIR HFA 115/21 MCG INHALER 8 GM IH SCH (21:05)
[2020-04-27] VITALS: BP 140/77
[2020-04-27 04:00] VITALS: BP 169/74
[2020-04-27] MEDS ORDERED: LEVOTHYROXINE 88 MCG (LEVOTHORID) TAB PO SCH (06:30)
[2020-04-27 07:07] LABS: HEMOGLOBIN 9.6 g/dL (11.5-16.0)
--- NOTE | 2020-04-27 07:14 | Cardiac Procedure Note-CS/ASA ---
Pre-Procedure Note Pre-Op Procedure Note H&P Reviewed The H&P was reviewed, patient examined and no changes noted. Date H&P Reviewed: Apr 26, 2020 Time H&P Reviewed: 12:00 Conscious Sedation Pre-Proced Time 12:00 ASA Score 3 For ASA 3 and 4: Consider anesthesia and medical clearance. Also, for patients with a history of failed moderate sedation consider anesthesia. Airway Lungs Heart ASA score ASA 1: a normal healthy patient ASA 2: a patient with a mild systemic disease (mid diabetes, controlled hypertension, obesity x ASA 3: a patient with a severe systemic disease that limits activity (angina, COPD, prior Myocardial infarction) ASA 4: a patient with an incapacitating disease that is a constant threat to life (CHF, renal failure) ASA 5: a moribund patient not expected to survive 24 hrs. (ruptured aneurysm) ASA 6: a declared brain- patient whose organs are being harvested. For emergent operations, add the letter E after the classification Mallampati Classification Grade 3 Sedation Plan Analgesia, Amnesia, Plan communicated to team members, Discussed options with patient/fam, Discussed risks with patient/fam The patient is an appropriate candidate to undergo the planned procedure, sedation, and anesthesia. The patient immediately re-assessed prior to indication. TATE LAURA MD Apr 27, 2020 07:14
[2020-04-27] MEDS: ADVAIR HFA 115/21 MCG INHALER 8 GM IH SCH (07:17)
--- NOTE | 2020-04-27 07:17 | Discharge Inst-Post CATH ---
Discharge Inst-CATH/EP Problems Reviewed?: Yes Post Cardiac Cath/EP D/C Inst Follow Up/Plan Appointment with Dr Watson in 2-4 weeks <b>CARDIAC CATH/EP PROCEDURE DISCHARGE INSTRUCTIONS</b> ACTIVITY * Go Home directly and rest. * Limit activity of the leg (or wrist if it was used) for 7 days including aerobics, swimming, jogging, bicycling, etc. * Restrict stair-climbing for 7 days if possible, if not, climb up with your non-cath leg, then bring together on the same step. * Avoid lifting, pushing, pulling or excessive movement of the affected extremity for 7 days. * Customary sexual activity may be resumed after 2 days-use caution not to use a position that strains or causes pain to the affected extremity. * No driving for 24 hours. * NO SMOKING. * Avoid straining for bowel movements for 7 days. * Gentle walking on level ground is allowed. * Returning to work will depend on the type of procedure and the results. Your doctor will discuss this with you. CALL YOUR DOCTOR FOR ANY OF THE FOLLOWING: *If bleeding from the puncture site occurs- Apply gentle pressure to site with clean cloth and call your doctor or EMS. * If a knot or lump forms under the skin, increases in size, or causes pain. * If bruising appears to be worsening or moving further down your leg instead of disappearing. * Temperature above 101 F. CARE OF YOUR GROIN INCISION; * Bruising or purple discoloration of the skin near the puncture site is common. * You may shower only, no bathtub bathing for 5 days. Be careful to avoid slipping as your leg may feel stiff. * If a closure device was used on your femoral artery, please see the attached guide regarding care of the device and your leg. * Leave dressing on FOR 24 hours. CARE OF YOUR WRIST INCISION; * Bruising or purple discoloration of the skin near the puncture site is common. * You may shower. * DO NOT submerge wrist. * Leave dressing on FOR 24 hours. TATE WATSON MD Apr 27, 2020 07:17
[2020-04-27] MEDS ORDERED: LISI-552 PO (07:18)
[2020-04-27] MEDS ORDERED: TICA90TA PO (07:18)
[2020-04-27] MEDS ORDERED: ASPI-1238 PO (07:18)
[2020-04-27 08:02] LABS: CALCIUM 8.6 MG/DL (8.5-10.1); CREATININE SERUM 1.21 MG/DL (0.60-1.30); POTASSIUM 4.2 MMOL/L (3.6-5.0)
[2020-04-27] MEDS ORDERED: ASPIRIN E.C. 81 MG (ECOTRIN) TAB PO SCH (09:00)
[2020-04-27] MEDS ORDERED: OMEGA 3 (FISH OIL) 1000 MG CAP PO SCH (09:00)
[2020-04-27] MEDS ORDERED: PANTOPRAZOLE 40 MG (PROTONIX) TAB PO SCH (09:00)
[2020-04-27] MEDS ORDERED: VITAMIN D3 25 MCG (1,000 UNITS) TABLET PO SCH (09:00)
[2020-04-27] MEDS ORDERED: NON-FORMULARY MEDICATION 1 EA EA (Dexlansoprazole (Dexilant) 60 MG) PO SCH (09:00)
[2020-04-27] MEDS ORDERED: NON-FORMULARY MEDICATION 1 EA EA (Omega-3/Dha/Epa/Fish Oil (Fish Oil 1,000 mg Softgel) 1 E PO SCH (09:00)
[2020-04-27] MEDS ORDERED: NON-FORMULARY MEDICATION 1 EA EA (Cholecalciferol (Vitamin D3) (D3-2000) 50 MCG) PO SCH (09:00)
[2020-04-27] MEDS: FERROUS SULF 325 MG (IRON) TAB PO SCH (09:15)
[2020-04-27] MEDS: DOCUSATE SODIUM 100 MG (COLACE) CAP PO SCH (09:16)
[2020-04-27] MEDS: CYCLOBENZAPRINE 10 MG (FLEXERIL) TAB PO SCH (09:16)
[2020-04-27] MEDS: TICAGRELOR 90 MG TABLET (BRILINTA) PO SCH (09:16)
== END 2020-04-27 10:00 | disposition home or self-care (01) ==
LOC: CATH 10:50 → CSD 17:23 → CATH 04-27 10:00
PROVIDERS: ATTEND Internal Medicine Cardiovascular Disease
DX: I25.10 Atherosclerotic heart disease of native coronary artery without angina pectoris (principal); I13.0 Hypertensive heart and chronic kidney disease with heart failure and stage 1 through stage 4 chronic kidney disease, or unspecified chronic kidney disease; I50.9 Heart failure, unspecified; N18.30 Chronic kidney disease, stage 3 unspecified; E11.22 Type 2 diabetes mellitus with diabetic chronic kidney disease; K21.9 Gastro-esophageal reflux disease without esophagitis; E78.2 Mixed hyperlipidemia; E03.9 Hypothyroidism, unspecified; I65.23 Occlusion and stenosis of bilateral carotid arteries; Z79.51 Long term (current) use of inhaled steroids; Z79.899 Other long term (current) drug therapy; Z88.5 Allergy status to narcotic agent; Z88.8 Allergy status to other drugs, medicaments and biological substances; Z91.041 Radiographic dye allergy status; Z87.891 Personal history of nicotine dependence
CPT/HCPCS: 71045; 80048; 80053; 80061; 85027 ×2; 85610; 85730; 93005; 93458; 94640 ×2; C1725; C1760; C1769 ×2; C1874; C1887; C1894; C9600; 36415

== ENCOUNTER → 2020-06-13 | Outpatient (CLI) | payer MEDICARE, MEDICAID ==
[~2020-06-13] MED LIST changes: +ASPI-1238 PO; +BUDE10.2 INH; +CALC300T4 PO; +CALC500T64 PO; +DIPH25TA65 PO; +FLUT9.9S NSEACH; +GUAI-585 PO; +LISI-552 PO; +LOPE2CAP PO; +MECL-149 PO; +PEG15DRO9 OU; +TICA90TA PO
--- NOTE | 2020-06-13 13:46 | Diagnostic Imaging Report ---
INDICATION: Left shoulder pain. AP, oblique, and transscapular views left shoulder are obtained. FINDINGS: No fracture or acute bony abnormality is seen. Glenohumeral joint appears unremarkable. There is mild degenerative change of the AC joint. IMPRESSION: Mild degenerative changes of the AC joint. No acute fracture or dislocation. Dictated by: Dictated on workstation # [id number]
== END ==
LOC: RAD 11:38
PROVIDERS: ATTEND Family Medicine
DX: M19.012 Primary osteoarthritis, left shoulder (principal)
CPT/HCPCS: 73030

== ENCOUNTER → 2020-07-19 | Outpatient (CLI) | payer MEDICARE, MEDICAID ==
[~2020-07-19] MED LIST changes: -LISI-552 PO; +LISI20TA26 PO; +RT-ALBUTEROL SULF 2.5 MG/3 ML PRE-MIX VIAL INH ONE
--- NOTE | 2020-07-19 14:27 | Diagnostic Imaging Report ---
EXAMINATION: CT Chest without contrast. TECHNIQUE: Multiple contiguous axial images were obtained through the chest without the use of intravenous contrast. All CT scans use one or more of the following dose optimizing techniques: automated exposure control, MA and/or KvP adjustment based on a patient size and exam type, or iterative reconstruction. HISTORY: Respiratory disease. COMPARISON: 08/26/2007. FINDINGS: There is no edema or pneumonia. No pleural effusion. No pneumothorax. No suspicious nodules. Lungs are imaged in the expiratory phase leading to areas of atelectasis and increased opacity. There is no axillary or supraclavicular lymphadenopathy. There is no mediastinal lymphadenopathy. Left ventricle is mildly dilated. There are moderate coronary artery calcifications. No pericardial effusion. Aorta is normal in caliber. Limited views of the upper abdomen show changes of cholecystectomy. There are no suspicious osseous lesions. IMPRESSION: 1. Clear lungs. Dictated by: Dictated on workstation # [id number]
== END ==
LOC: RT 08:00
PROVIDERS: ATTEND Internal Medicine Critical Care Medicine
DX: Z13.83 Encounter for screening for respiratory disorder NEC (principal); R06.00 Dyspnea, unspecified
CPT/HCPCS: 71250; 94060; 94729

== ENCOUNTER → 2020-08-18 | Outpatient (CLI) | payer MEDICARE, MEDICAID ==
[~2020-08-18] MED LIST changes: -RT-ALBUTEROL SULF 2.5 MG/3 ML PRE-MIX VIAL INH ONE
== END ==
LOC: LABNPT 08:41
PROVIDERS: ATTEND Otolaryngology Otolaryngology/Facial Plastic Surgery
DX: Z20.822 Contact with and (suspected) exposure to COVID-19 (principal)
CPT/HCPCS: 87635

== ENCOUNTER 2020-08-21 21:18 | Outpatient (CLI) | payer MEDICARE, MEDICAID | END 2020-08-22 07:00 | disposition home or self-care (01) | LOC: SLEEP 21:18 | PROVIDERS: ATTEND Nurse Practitioner Family | DX: G47.33 Obstructive sleep apnea (adult) (pediatric) (principal); G47.36 Sleep related hypoventilation in conditions classified elsewhere; G47.50 Parasomnia, unspecified; G47.10 Hypersomnia, unspecified | CPT/HCPCS: 95811 ==

== ENCOUNTER 2020-09-07 09:15 | Outpatient (RCR) | payer MEDICARE, MEDICAID | END 2020-09-29 09:30 | disposition home or self-care (01) | PROVIDERS: ATTEND Family Medicine | DX: M19.012 Primary osteoarthritis, left shoulder (principal); M75.42 Impingement syndrome of left shoulder; I10 Essential (primary) hypertension; J45.909 Unspecified asthma, uncomplicated ==

== ENCOUNTER 2021-03-13 07:56 | Inpatient (IN) | payer MEDICARE, MEDICAID ==
[~2021-03-13] VITALS: Ht 160 cm; Wt 93.3 kg
[2021-03-13] MEDS ORDERED: ONDANSETRON 4 MG/2 ML (SDV) Z0FRAN IVP ONE (08:30)
[2021-03-13] MEDS ORDERED: LACTATED RINGERS 1,000 ML IV ONE ×2 (08:30→10:00)
[2021-03-13] MEDS ORDERED: FAMOTIDINE 20MG/2ML IV (PEPCID) IVP ONE (08:30)
--- NOTE | 2021-03-13 09:15 | ED Abdominal Pain ---
General Chief Complaint: Abdominal/GI Problems Stated Complaint: DIARRHEA,N/V Nursing Triage Note: PT CO OF N/V/D FOR 2 WEEKS, VOMITING STARTED YESTERDAY. PT TO ROOM 9 PER W/C. ABD DISTENDED. PT STATES A PANCAKE BUFFET THIS AM PRIOR TO VOMITING Source of Information: Patient Exam Limitations: No Limitations History of Present Illness Date Seen by Provider: Mar 13, 2021 Time Seen by Provider: 08:15 Initial Comments This is 75-year-old woman presents to the emergency room with complaints of abdominal pain, vomiting, and diarrhea. She has been experiencing the symptoms for 2 days. She denies any significant acute respiratory problems. She is afebrile. She reports going to the [employer] this morning and eating pancakes. She developed vomiting and diarrhea shortly thereafter. Her son brought her to the ER. She has significant tenderness and guarding to percussion in the lower abdomen. She is a [place] client. Patient has been ou t on a pass with her son for the past 2 weeks. Allergies and Home Medications Allergies Coded Allergies: Iodinated Contrast Media (Unverified Adverse Reaction, Unknown, 02/24/20) NSAIDS (Non-Steroidal Anti-Inflamma (Unverified Adverse Reaction, Unknown, 02/24/20) glimepiride (Unverified Adverse Reaction, Unknown, 02/24/20) Patient Home Medication List Home Medication List Reviewed: Yes Acetaminophen (Acetaminophen) 500 Mg Tablet, 1,000 MG PO BID, (Reported) Entered as Reported by: ZANE CASTELLANO on 03/13/21 152 Last Action: Reviewed Acetaminophen (Tylenol) 325 Mg Capsule, 650 MG PO Q12H PRN for PAIN-MILD (1-4), (Reported) Entered as Reported by: ZANE CASTELLANO on 03/13/21 1527 Last Action: Reviewed Albuterol Sulfate (Ventolin Hfa) 1 Puff Puff, 2 PUFF INH Q6H PRN for SHORTNESS OF BREATH, (Reported) Entered as Reported by: INOCENTE CHADWICK on 02/24/20 0936 Last Action: Reviewed Budesonide/Formoterol Fumarate (Symbicort 160-4.5 Mcg Inhaler) 10.2 Gm Hfa.aer.ad, 2 PUFF INH BID, (Reported) Entered as Reported by: ROYA LERNER on 04/26/201209 Last Action: Reviewed Calcium Carbonate (Calcium Carbonate) 500 Mg Tablet, 1,000 MG PO Q4H PRN for HEARTBURN, (Reported) Entered as Reported by: ROYA LERNER on 04/26/201209 Last Action: Reviewed Chlorpheniramine/Dextromethorp (Chld Robitussin Night Cough Dm) 118 Ml Liquid, 5 ML PO Q6H PRN for COUGH, (Reported) Entered as Reported by: ZANE CASTELLANO on 03/13/211526 Last Action: Reviewed Cholecalciferol (Vitamin D3) (D3-2000) 50 Mcg Capsule, 50 MCG PO DAILY, (Reported) Entered as Reported by: INOCETNE CHADWICK on 02/24/20935 Last Action: Reviewed Cyclobenzaprine HCl (Cyclobenzaprine HCl) 5 Mg Tablet, 5 MG PO BID, (Reported) Entered as Reported by: ROYA LERNER on 04/26/201209 Last Action: Reviewed Dexlansoprazole (Dexilant) 60 Mg , 60 MG PO DAILY, (Reported) Entered as Reported by: ROYA LERNER on 04/26/201209 Last Action: Reviewed Diphenhydramine HCl (Benadryl Allergy) 25 Mg Tablet, 25-50 MG PO Q6H PRN for ALLERGIC REACTIONS, (Reported) Entered as Reported by: ROYA LERNER on 04/26/201209 Last Action: Reviewed Docusate Sodium (Docusate Sodium) 100 Mg Capsule, 100 MG PO BID, (Reported) Entered as Reported by: INOCENTE CHADWICK on 02/24/20935 Last Action: Reviewed Ferrous Sulfate (Iron) 325 Mg Tablet, 325 MG PO BID, (Reported) Entered as Reported by: INOCENTE CHADWICK on 02/24/20935 Last Action: Reviewed Fluticasone Propionate (Flonase Allergy Relief) 9.9 Ml [place].susp, 1 SPRAY NSEACH DAILY, (Reported) Entered as Reported by: ROYA LERNER on 04/26/201209 Last Action: Reviewed Furosemide (Furosemide) 20 Mg Tablet, 20 MG PO DAILY, (Reported) Entered as Reported by: ZANE CASTELLANO on 03/13/211526 Last Action: Reviewed Glipizide (Glipizide) 5 Mg Tablet, 5 MG PO DAILY, (Reported) Entered as Reported by: ZANE CASTELLANO on 03/13/21 153 Last Action: Reviewed Guaifenesin/Dextromethorphan (Guaifenesin-Dm 100-10 mg/5 ml) 5 Ml Liquid, 10 ML PO Q4H PRN for COUGH, (Reported) Entered as Reported by: ZANE CASTELLANO on 03/13/211526 Last Action: Reviewed Hydrocortisone Acetate (Hydrocortisone Acetate) 28.4 Gm Cream..g., 1 APPLIC TP Q8H PRN for RASH, (Reported) Entered as Reported by: ZANE CASTELLANO on 03/13/211526 Last Action: Reviewed Ipratropium/Albuterol Sulfate (Iprat-Albut 0.5-3(2.5) mg/3 ml) 3 Ml Ampul.neb, 3 ML IH QID, (Reported) Entered as Reported by: ZANE CASTELLANO on 03/13/211526 Last Action: Reviewed Levothyroxine Sodium (Synthroid) 88 Mcg Tablet, 88 MCG PO DAILY, (Reported) Entered as Reported by: SARAH CRUZ on 07/16/18 1302 Last Action: Reviewed Loperamide HCl (Imodium A-D) 2 Mg Capsule, 2 MG PO Q6H PRN for DIARRHEA, (Reported) Entered as Reported by: ZANE CASTELLANO on 03/13/211526 Last Action: Reviewed Losartan Potassium (Losartan Potassium) 100 Mg Tablet, 100 MG PO DAILY, (Reported) Entered as Reported by: ZANE CASTELLANO on 03/13/211526 Last Action: Reviewed Magnesium Hydroxide (Milk of Magnesia) 400 Mg/5 Ml Oral.susp, 30 ML PO Q12H PRN for CONSTIPATION-7TH LINE, (Reported) Entered as Reported by: ROYA LERNER on 04/26/20 1210 Last Action: Reviewed Magnesium Oxide (Magnesium Oxide) 400 Mg Tablet, 400 MG PO DAILY, (Reported) Entered as Reported by: INOCENTE CHADWICK on 02/24/20 0936 Last Action: Reviewed Meclizine HCl (Meclizine HCl) 25 Mg Tablet, 25 MG PO Q8H PRN for DIZZINESS, (Reported) Entered as Reported by: ROYA LERNER on 04/26/20 121 Last Action: Reviewed Menthol (Cough Drops) 5 Mg Lozenge, 5 MG MM EVERY 1 HOUR PRN for COUGH, (Reported) Entered as Reported by: ZANE CASTELLANO on 03/13/211526 Last Action: Reviewed Menthol/Zinc Oxide (Gold López Medicated Body Powd) 113 Gm Powder, 1 APPLIC TP DAILY, (Reported) Entered as Reported by: ZANE CASTELLANO on 03/13/211526 Last Action: Reviewed Montelukast Sodium (Montelukast Sodium) 10 Mg Tablet, 10 MG PO HS, (Reported) Entered as Reported by: ZANE CASTELLANO on 03/13/211526 Last Action: Reviewed Multivitamin with Minerals (Multivitamins with Minerals) 1 Each Tablet, 1 EACH PO DAILY, (Reported) Entered as Reported by: ZANE CASTELLANO on 03/13/211526 Last Action: Reviewed [place]-3/Dha/Epa/Fish Oil (Fish Oil 1,000 mg Softgel) 1 Each Capsule, 1 EACH PO DAILY, (Reported) Entered as Reported by: INOCENTE CHADWICK on 02/24/20935 Last Action: Reviewed Ondansetron (Ondansetron Odt) 4 Mg Tab.rapdis, 4 MG PO Q8H PRN for NAUSEA/VOMITING-1ST LINE, (Reported) Entered as Reported by: ZANE CASTELLANO on 03/13/211526 Last Action: Reviewed Polyethylene Glycol 3350 (Miralax) 17 Gm Powd.pack, 17 GM PO DAILY PRN for CONSTIPATION-2ND LINE, (Reported) Entered as Reported by: ROYA LERNER on 04/26/20 1210 Last Action: Reviewed Rosuvastatin Calcium (Rosuvastatin Calcium) 20 Mg Tablet, 20 MG PO HS, (Reported) Entered as Reported by: ZANE CASTELLANO on 03/13/211526 Last Action: Reviewed Sucralfate (Carafate) 1 Gm Tablet, 1 GM PO BID, (Reported) Entered as Reported by: INOCENTE CHADWICK on 02/24/20935 Last Action: Reviewed Tetrahydrozoline HCl (Tetrahydrozoline HCl) 15 Ml Drops, 2 DROPS OU Q6H PRN for DRY EYES, (Reported) Entered as Reported by: ZANE CASTELLANO on 03/13/211526 Last Action: Reviewed Ticagrelor (Brilinta) 90 Mg Tablet, 90 MG PO BID, (Reported) Entered as Reported by: ZANE CASTELLANO on 03/13/21 1527 Last Action: Reviewed Discontinued Medications Aspirin (Aspirin EC) 81 Mg Tablet.dr, 81 MG PO DAILY Discontinued Reason: No Longer Taking Prescribed by: TATE LAURA on 04/27/20717 Last Action: Discontinued Atorvastatin Calcium (Atorvastatin Calcium) 40 Mg Tablet, 40 MG PO DAILY, (Reported) Discontinued Reason: No Longer Taking Entered as Reported by: SARAH CRUZ on 07/16/18 1302 Last Action: Discontinued Calcium Carbonate (Tums) 300 Mg Tab.chew, 600 MG PO Q4H PRN for HEARTBURN, (Reported) Discontinued Reason: No Longer Taking Entered as Reported by: ROYA LERNER on 04/26/201209 Last Action: Discontinued Glipizide (Glipizide) 10 Mg Tablet, (Reported) Discontinued Reason: Duplicate Order Entered as Reported by: ZANE CASTELLANO on 03/13/21 1539 Last Action: Discontinued Guaifenesin/D-Methorphan Hb/PE (Robitussin Cough-Cold Cf Liq) 118 Ml Liquid, 5 ML PO Q6H PRN for COUGH, (Reported) Discontinued Reason: Duplicate Order Entered as Reported by: ROYA LERNER on 04/26/201209 Last Action: Discontinued Lisinopril (Lisinopril) 20 Mg Tablet, 20 MG PO DAILY Discontinued Reason: No Longer Taking Prescribed by: TATE LAURA on 04/27/20717 Last Action: Discontinued Loperamide HCl (Loperamide) 2 Mg Capsule, 2 MG PO Q6H PRN for DIARRHEA, (Reported) Discontinued Reason: Duplicate Order Entered as Reported by: ROYA LERNER on 04/26/201209 Last Action: Discontinued Montelukast Sodium (Singulair) 10 Mg Tablet, 10 MG PO HS, (Reported) Discontinued Reason: Duplicate Order Entered as Reported by: SARAH CRZU on 07/16/18 1302 Last Action: Discontinued Multivitamin (Multivitamin) 1 Each Tablet, 1 EACH PO DAILY, (Reported) Discontinued Reason: Prescription changed Entered as Reported by: INOCENTE CHADWICK on 02/24/20 0936 Peg 400/Hypromellose/Glycerin (Visine Dry Eye Relief Drop) 15 Ml Drops, 2 DROPS OU Q6H PRN for DRY EYES, (Reported) Discontinued Reason: Prescription changed Entered as Reported by: ROYA LERNER on 04/26/20 1210 Ticagrelor (Brilinta) 90 Mg Tablet, 90 MG PO BID Discontinued Reason: Duplicate Order Prescribed by: TATE LAURA on 04/27/20 0718 Last Action: Discontinued Review of Systems Review of Systems Constitutional: no symptoms reported EENTM: No Symptoms Reported Respiratory: No Symptoms Reported Cardiovascular: No Symptoms Reported Gastrointestinal: See HPI Genitourinary: No Symptoms Reported Musculoskeletal: no symptoms reported Skin: no symptoms reported Psychiatric/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: No Symptoms Reported Endocrine: No Symptoms Reported Hematologic/Lymphatic: No Symptoms Reported Past Ttvvpxa-Pnuhvb-Lxtosv Hx Patient Social History Tobacco Use?: No Substance use?: No Alcohol Use?: No Pt feels they are or have been: No Immunizations Up To Date Tetanus Booster (TDap): More than 5yrs First/Initial COVID19 Vaccinat: STATES ONE SHOT ONLY Seasonal Allergies Seasonal Allergies: No Past Medical History Surgeries: Yes Abdominal (Hernia repair), Coronary Stent, Gallbladder Respiratory: Yes (SOB) Asthma Cardiac: Yes Chronic Edema/Swelling, Coronary Artery Disease, Congenital Heart Disease, High Cholesterol, Hypertension 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: No HOME COMPANION History: Menopausal Sexually Transmitted Disease: No HIV/AIDS: No Genitourinary: Yes (STAGE 3) Renal Failure Gastrointestinal: Yes Gastroesophageal Reflux, Chronic Constipation, Hiatal Hernia Musculoskeletal: Yes Arthritis Endocrine: Yes Diabetes, Non-Insulin dep HEENT: No Cancer: No Psychosocial: Yes (m.r.) Integumentary: No Blood Disorders: Yes (ANEMIA) Adverse Reaction/Blood Tranf: No (N/A) Physical Exam Vital Signs Vital Signs - First Documented 03/13/21 08:05 Temp 36.6 Pulse 111 Resp 20 B/P (MAP) 145/71 (95) Pulse Ox 95 O2 Delivery Room Air Capillary Refill : Less Than 3 Seconds Height/Weight/BMI Height: 5'0.00" Weight: 180lbs. 0.0oz. 81.823431dx; 38.00 BMI Method: General Appearance: WD/WN, no apparent distress, obese HEENT: PERRL/EOMI, normal ENT inspection Neck: normal inspection Respiratory: lungs clear, normal breath sounds, no respiratory distress, no accessory muscle use Cardiovascular: no edema, no murmur, tachycardia Gastrointestinal: abnormal bowel sounds (Decreased), distended, rebound, tenderness (Tenderness and guarding to percussion in the lower abdomen) Extremities: normal inspection, no pedal edema Neurologic/Psychiatric: transmission mechanic II-XII nml as tested, no motor/sensory deficits, alert, normal mood/affect, oriented x 3 Skin: normal color, warm/dry Focused Exam Lactate Level 03/13/21 09:10: Lactic Acid Level 2.59*H Lactic Acid Level Laboratory Tests Test 03/13/21 09:10 Lactic Acid Level 2.59 MMOL/L (0.50-2.00) *H Progress/Results/Core Measures Results/Orders Lab Results Laboratory Tests Test 03/13/21 06:36 03/13/21 08:17 03/13/21 09:10 Range/Units Urine Color YELLOW Urine Clarity CLEAR Urine pH 6.0 5-9 Urine Specific Olivia 1.015 L 1.016-1.022 Urine Protein TRACE H NEGATIVE Urine Glucose (UA) NEGATIVE NEGATIVE Urine Ketones NEGATIVE NEGATIVE Urine Nitrite NEGATIVE NEGATIVE Urine Bilirubin NEGATIVE NEGATIVE Urine Urobilinogen 0.2 < = 1.0 MG/DL Urine Leukocyte Esterase NEGATIVE NEGATIVE Urine RBC (Auto) NEGATIVE NEGATIVE Urine RBC NONE /HPF Urine WBC RARE /HPF Urine Squamous Epithelial Cells 2-5 /HPF Urine Crystals PRESENT H /LPF Urine Amorphous Sediment FEW KEVIN URATES H /LPF Urine Bacteria NEGATIVE /HPF Urine Casts NONE /LPF Urine Mucus NEGATIVE /LPF Urine Culture Indicated NO Influenza Type A (RT-PCR) Not Detected Not Detecte Influenza Type B (RT-PCR) Not Detected Not Detecte SARS-CoV-2 RNA (RT-PCR) Not Detected Not Detecte White Blood Count 11.7 H 4.3-11.0 10^3/uL Red Blood Count 3.37 L 3.80-5.11 10^6/uL Hemoglobin 10.5 L 11.5-16.0 g/dL Hematocrit 34 L 35-52 % Mean Corpuscular Volume 99 80-99 fL Mean Corpuscular Hemoglobin 31 25-34 pg Mean Corpuscular Hemoglobin Concent 31 L 32-36 g/dL Red Cell Distribution Width 12.9 10.0-14.5 % Platelet Count 251 130-400 10^3/uL Mean Platelet Volume 10.9 9.0-12.2 fL Immature Granulocyte % (Auto) 1 % Neutrophils (%) (Auto) 81 H 42-75 % Lymphocytes (%) (Auto) 10 L 12-44 % Monocytes (%) (Auto) 7 0-12 % Eosinophils (%) (Auto) 1 0-10 % Basophils (%) (Auto) 0 0-10 % Neutrophils # (Auto) 9.5 H 1.8-7.8 10^3/uL Lymphocytes # (Auto) 1.2 1.0-4.0 10^3/uL Monocytes # (Auto) 0.8 0.0-1.0 10^3/uL Eosinophils # (Auto) 0.1 0.0-0.3 10^3/uL Basophils # (Auto) 0.0 0.0-0.1 10^3/uL Immature Granulocyte # (Auto) 0.1 0.0-0.1 10^3/uL Sodium Level 139 135-145 MMOL/L Potassium Level 3.4 L 3.6-5.0 MMOL/L Chloride Level 98 98-107 MMOL/L Carbon Dioxide Level 23 21-32 MMOL/L Anion Gap 18 H 5-14 MMOL/L Blood Urea Nitrogen 45 H 7-18 MG/DL Creatinine 2.35 H 0.60-1.30 MG/DL Estimat Glomerular Filtration Rate 20 BUN/Creatinine Ratio 19 Glucose Level 148 H 70-105 MG/DL Lactic Acid Level 2.59 *H 0.50-2.00 MMOL/L Calcium Level 9.5 8.5-10.1 MG/DL Corrected Calcium 9.6 8.5-10.1 MG/DL Total Bilirubin 0.4 0.1-1.0 MG/DL Aspartate Amino Transf (AST/SGOT) 39 H 5-34 U/L Alanine Aminotransferase (ALT/SGPT) 51 0-55 U/L Alkaline Phosphatase 122 40-136 U/L C-Reactive Protein High Sensitivity 8.69 H 0.00-0.50 MG/DL Total Protein 7.6 6.4-8.2 GM/DL Albumin 3.9 3.2-4.5 GM/DL Thyroid Stimulating Hormone (TSH) 4.25 0.35-4.94 UIU/ML Free Thyroxine 0.80 0.70-1.48 NG/DL My Orders Maria G - BRUEGGEMANN,BREANNA T MD Ondansetron Injection (Zofran Injectio (03/13/21 08:30) Famotidine Injection (Pepcid Injection) (03/13/21 08:30) Ed Iv/Invasive Line Start (03/13/21 08:25) Lactated Ringers (Lr 1000 Ml Iv Solution (03/13/21 08:30) Cbc With Automated Diff (03/13/21 08:28) Comprehensive Metabolic Panel (03/13/21 08:28) Blood Culture (03/13/21 08:28) Sputum Culture (03/13/21 08:28) Urinalysis (03/13/21 08:28) Urine Culture (03/13/21 08:28) Chest 1 View, Ap/Pa Only (03/13/21 08:28) Vital Signs Adult Sepsis Patie Q15M (03/13/21 08:28) Remove Rings In Anticipation O (03/13/21 08:28) Lactic Acid Analyzer (03/13/21 08:28) Hs C Reactive Protein (03/13/21 08:28) Thyroid Stimulating Hormone (03/13/21 08:28) Free T4 (Free Thyroxine) (03/13/21 08:28) Influenza A And B By Pcr (03/13/21 08:31) Covid 19 Inhouse Test (03/13/21 08:31) Ct Abdomen/Pelvis Wo (03/13/21 09:53) Lactated Ringers (Lr 1000 Ml Iv Solution (03/13/21 10:00) Ciprofloxacin Iv 400mg/200ml (Cipro Iv S (03/13/21 11:00) Medications Given in ED Vital Signs/I&O 03/13/21 08:05 Temp 36.6 Pulse 111 Resp 20 B/P (MAP) 145/71 (95) Pulse Ox 95 O2 Delivery Room Air Blood Pressure Mean: 95 Progress Progress Note #1: Time: 09:57 Progress Note Patient was treated with Zofran. She was comfortable and sleeping up on reentering the room. She has completed 1 L of IV LR and will receive a second. Labs reveal an acute kidney injury with elevated creatinine. She also has a minimal elevation in WBC and CRP. I am concerned about possible bowel obstruction with her significant abdominal tenderness and distention. CT of the abdomen and pelvis without contrast has been ordered. Progress Note #2: Time: 11:[address] without contrast was obtained. This was discussed with the radiologist. There were distended small bowel loops proximally with no evident transition point. There is a question of pneumatosis versus air containing debris. I reexamined the patient and found her to still have tenderness to percussion in the lower abdomen. This was discussed with Dr. Malone. There was discussion regarding repeating CT scan with contrast. We elected to delay a contrast study for 2 reasons. First, she has a contrast adverse reaction noted in the chart. Neither the patient, son, guardian, nor [employer] worker know what that reaction was. Second, she has significant acute kidney injury with a GFR of 20. Dr. Malone will further evaluate her and determine if a CT with contrast should be done at a later time during her care. In the meantime, he would like to keep her n.p.o. except ice chips and start Cipro and Flagyl. Case was discussed with Dr. Bassett as well. She will be consulted for med management. Patient does have a guardian named Kenyatta Lindsay, . She is presumed to have a full CODE STATUS as there is no DNR noted by any constitution party and she has a state appointed guardian. Diagnostic Imaging Diagonstic Imaging: Xray Plain Films/CT/US/NM/MRI: chest Comments Chest x-ray viewed by me and report reviewed. See report below: NAME: WARD DALEY MED REC#: [id number] PT STATUS: REG ER : 1945 PHYSICIAN: BREANNA OSMAN MD ADMIT DATE: 03/13/21/ER Signed Date of Exam:03/13/21 CHEST 1 VIEW, AP/PA ONLY INDICATION: Question sepsis. Nausea, vomiting and diarrhea for 2 weeks. Abdominal distention. EXAMINATION: Chest 03/13/2021 COMPARISON: 04/26/2020 FINDINGS: Heart is unremarkable. Pulmonary vasculature normal. There is minimal atelectasis at the left lung base. No effusions or infiltrates. No pneumothorax. No acute osseous abnormality. IMPRESSION: 1. Minimal left base atelectasis, otherwise negative chest. Dictated by: Dictated on workstation # [id number] Dict: 03/13/21913 Trans: 03/13/21931 [facility] [id number] Interpreted by: RENEE GARZA MD Electronically signed by: RENEE GARZA MD 03/13/21931 Diagonstic Imaging: CT Plain Films/CT/US/NM/MRI: abdomen, pelvis Comments CT abdomen pelvis viewed by me, discussed with the radiologist, and report reviewed. See report below: NAME: WARD DALEY [facility] REC#: [id number] PT STATUS: REG ER : 1945 PHYSICIAN: BREANNA OSMAN MD ADMIT DATE: 03/13/21/ER Signed Date of Exam:03/13/21 CT ABDOMEN/PELVIS WO CT ABDOMEN/PELVIS WO TECHNIQUE: Unenhanced CT imaging of the abdomen and pelvis was performed. 2-D reformats are created and submitted for interpretation. Automatic exposure controls were utilized to optimize patient dose. INDICATION: Nausea and diarrhea. Vomiting. COMPARISON: None available. FINDINGS: Evaluation of the abdominal viscera is mildly limited without contrast. Lower chest: The lung bases are clear. No pericardial or pleural effusion. Peritoneum: No free intraperitoneal air or fluid. Liver and biliary system: Unenhanced liver is normal. Cholecystectomy. Common bile duct is mildly dilated likely due to postcholecystectomy state and reservoir effect. Spleen and Pancreas: Spleen is normal. Diffuse fatty atrophy throughout the pancreas without mass or inflammation. Adrenals: Normal. tract: No renal or ureteral calculi. No obstructive uropathy. Hysterectomy. No adnexal mass. GI tract: Stomach is mildly distended with fluid and air without wall thickening. The proximal small bowel loops are fluid and air-filled with a jejunal loop measuring up to 4.0 cm. There are few foci of gas along the wall of jejunum which are unlikely to be within the wall. There is mild engorgement of the mesenteric vasculature. Periumbilical hernia is present containing a loop of small bowel, although there is no decompression of bowel distal to this. No pericolonic inflammatory changes. Colon is fluid filled. Sigmoid diverticulosis without diverticulitis. Vasculature and Lymph nodes: Normal caliber aorta. No abdominal or pelvic lymphadenopathy. Musculoskeletal: No concerning osseous lesion. IMPRESSION: 1. Imaging features are most indicative of enteritis involving the jejunum. There is questionable area of pneumatosis in the proximal small bowel loop, although this may simply be due to air trapped between intraluminal debris. If there is strong clinical suspicion for ischemia, CT abdomen with IV contrast according to the mesenteric ischemia protocol could be performed. Otherwise, followup small bowel followthrough may be useful. Case was discussed with Dr. Bal by Dr. Lara at 10:25 AM on 03/13/2021. Dictated by: Dictated on workstation # [id number] Dict: 03/13/21 1010 Trans: 03/13/21 1138 [facility] [id number] Interpreted by: KAPIL LARA MD Electronically signed by: KAPIL LARA MD 03/13/21 1138 Departure Communication (Admissions) Time/Spoke to Admitting Phy: 10:40 Dr. Malone Time/Spoke to Consulting Phy: 11:27 Dr. Bassett Impression Primary Impression: Acute abdominal pain Additional Impressions: Acute kidney injury Nausea vomiting and diarrhea Abnormal CT of the abdomen Disposition: ADMITTED INPATIENT Condition: Stable Admissions Decision to Admit Reason: Admit from ER (General) Decision to Admit/Date: Mar 13, 2021 Time/Decision to Admit Time: 10:35 Departure-Patient Inst. Referrals: NO,LOCAL PHYSICIAN (PCP/Family) Primary Care Physician BREANNA OSMAN MD Mar 13, 2021 09:15
[2021-03-13 09:22] LABS: BASOPHILS % (AUTO) 0 % (0-10); EOSINOPHILS # (AUTO) 0.1 10^3/uL (0.0-0.3); EOSINOPHILS % (AUTO) 1 % (0-10); HEMATOCRIT 34 % (35-52); HEMOGLOBIN 10.5 g/dL (11.5-16.0); LYMPHOCYTES # (AUTO) 1.2 10^3/uL (1.0-4.0); LYMPHOCYTES % (AUTO) 10 % (12-44); MEAN CORPUSCULAR HEMOGLOBIN 31 pg (25-34); MEAN CORPUSCULAR HGB CONC 31 g/dL (32-36); MEAN CORPUSCULAR VOLUME 99 fL (80-99); MEAN PLATELET VOLUME 10.9 fL (9.0-12.2); MONOCYTES # (AUTO) 0.8 10^3/uL (0.0-1.0); MONOCYTES % (AUTO) 7 % (0-12); NEUTROPHILS # (AUTO) 9.5 10^3/uL (1.8-7.8); NEUTROPHILS % (AUTO) 81 % (42-75); PLATELET COUNT 251 10^3/uL (130-400); WHITE BLOOD COUNT 11.7 10^3/uL (4.3-11.0)
[2021-03-13 09:37] LABS: ALBUMIN 3.9 GM/DL (3.2-4.5); POTASSIUM 3.4 MMOL/L (3.6-5.0)
[2021-03-13 09:38] LABS: CALCIUM 9.5 MG/DL (8.5-10.1)
[2021-03-13 09:40] LABS: TOTAL PROTEIN 7.6 GM/DL (6.4-8.2)
[2021-03-13 09:41] LABS: BILIRUBIN,TOTAL 0.4 MG/DL (0.1-1.0)
[2021-03-13 09:43] LABS: CREATININE SERUM 2.35 MG/DL (0.60-1.30)
[2021-03-13 10:10] LABS: FREE T4 (FREE THYROXINE) 0.8 NG/DL (0.70-1.48)
--- NOTE | 2021-03-13 10:30 | Diagnostic Imaging Report ---
CT ABDOMEN/PELVIS WO TECHNIQUE: Unenhanced CT imaging of the abdomen and pelvis was performed. 2-D reformats are created and submitted for interpretation. Automatic exposure controls were utilized to optimize patient dose. INDICATION: Nausea and diarrhea. Vomiting. COMPARISON: None available. FINDINGS: Evaluation of the abdominal viscera is mildly limited without contrast. Lower chest: The lung bases are clear. No pericardial or pleural effusion. Peritoneum: No free intraperitoneal air or fluid. Liver and biliary system: Unenhanced liver is normal. Cholecystectomy. Common bile duct is mildly dilated likely due to postcholecystectomy state and reservoir effect. Spleen and Pancreas: Spleen is normal. Diffuse fatty atrophy throughout the pancreas without mass or inflammation. Adrenals: Normal. tract: No renal or ureteral calculi. No obstructive uropathy. Hysterectomy. No adnexal mass. GI tract: Stomach is mildly distended with fluid and air without wall thickening. The proximal small bowel loops are fluid and air-filled with a jejunal loop measuring up to 4.0 cm. There are few foci of gas along the wall of jejunum which are unlikely to be within the wall. There is mild engorgement of the mesenteric vasculature. Periumbilical hernia is present containing a loop of small bowel, although there is no decompression of bowel distal to this. No pericolonic inflammatory changes. Colon is fluid filled. Sigmoid diverticulosis without diverticulitis. Vasculature and Lymph nodes: Normal caliber aorta. No abdominal or pelvic lymphadenopathy. Musculoskeletal: No concerning osseous lesion. IMPRESSION: 1. Imaging features are most indicative of enteritis involving the jejunum. There is questionable area of pneumatosis in the proximal small bowel loop, although this may simply be due to air trapped between intraluminal debris. If there is strong clinical suspicion for ischemia, CT abdomen with IV contrast according to the mesenteric ischemia protocol could be performed. Otherwise, followup small bowel followthrough may be useful. Case was discussed with Dr. Bal by Dr. Lara at 10:25 AM on 03/13/2021. Dictated by: Dictated on workstation # [id number]
[2021-03-13] MEDS ORDERED: CIPROFLOXACIN IV 400MG/200ML 200 ML IV ONE (11:00)
[2021-03-13] MEDS ORDERED: metroNIDAZOLE 500 MG/100 ML IVPB (PRE-MIX) IV SCH (12:00)
--- NOTE | 2021-03-13 12:11 | Consultation - Hospitalist ---
HPI History of Present Illness: HPI/Chief Complaint Patient is a 75-year-old female with a past medical history of agh-nibswlj-igknxyoiy type 2 diabetes, COPD, hypothyroidism who presented to the emergency department due to nausea, vomiting, abdominal pain. She normally resides at new home but has been on Aleve with her son. Over the past few days she has not felt well and has had nausea and vomiting. This morning she went to the dentist but they and ate pancakes and then could not quit vomiting. She is also had diarrhea. In the emergency department she was found to be quite distended and CT abdomen was performed. This revealed enteritis involving the jejunum and possible pneumatosis in the proximal small bowel loop. She is admit rigoberto to Dr. MALONE I am consulted for medical management. Source: patient Date Seen 03/13/21 Attending Physician PCP Nataliya,Local Physician Referring Physician Dr Malone Date of Admission Home Medications & Allergies Home Medications Reviewed patient Home Medication Reconciliation performed by pharmacy medication reconciliations refrigerating technician and/or nursing. Patients Allergies have been reviewed. Allergies Allergies Coded Allergies Iodinated Contrast Media (Unverified Adverse Reaction, Unknown, 02/24/20) NSAIDS (Non-Steroidal Anti-Inflamma (Unverified Adverse Reaction, Unknown, 02/24/20) glimepiride (Unverified Adverse Reaction, Unknown, 02/24/20) Past Khrauhg-Lnocdb-Uolccq Hx Patient Social History Employed/Student: retired Tobacco Use?: No Smoking Status: Never a Smoker Substance use?: No Alcohol Use?: No Pt feels they are or have been: No Immunizations Up To Date Date of Influenza Vaccine: Mar 02, 2018 First/Initial COVID19 Vaccinat: STATES ONE SHOT ONLY Date of Pneumonia Vaccine: Mar 30, 2013 Seasonal Allergies Seasonal Allergies: No Current Status Advance Directives: No Communicates: Verbally Primary Language: Upper Sorbian Preferred Spoken Language: Upper Sorbian Is interpretation needed?: No Implanted or Applied Medical D: Stents Past Medical History Surgeries: Abdominal (Hernia repair), Coronary Stent, Gallbladder Asthma Chronic Edema/Swelling, Coronary Artery Disease, Congenital Heart Disease, High Cholesterol, Hypertension 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 History: Menopausal Sexually Transmitted Disease: No HIV/AIDS: No Renal Failure Gastroesophageal Reflux, Chronic Constipation, Hiatal Hernia Arthritis Diabetes, Non-Insulin dep Blood Disorders: Yes (ANEMIA) Adverse Reaction/Blood Tranf: No (N/A) Family Medical History Reviewed Nursing Family Hx No Pertinent Family Hx Review of Systems Constitutional: No chills, No fever EENTM: no symptoms reported Respiratory: no symptoms reported Cardiovascular: no symptoms reported Gastrointestinal: abdominal pain, diarrhea, nausea, vomiting Genitourinary: no symptoms reported Musculoskeletal: no symptoms reported Skin: no symptoms reported Psychiatric/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: No Symptoms Reported Physical Exam Physical Exam Vital Signs Vital Signs - First Documented 03/13/21 08:05 Temp 36.6 Pulse 111 Resp 20 B/P (MAP) 145/71 (95) Pulse Ox 95 O2 Delivery Room Air Capillary Refill : Less Than 3 Seconds Height, Weight, BMI Height: 5'0.00" Weight: 180lbs. 0.0oz. [id number]; 38.00 BMI Method: General Appearance: No Apparent Distress, WD/WN HEENT: PERRL/EOMI, Moist Mucous Membranes Neck: Normal Inspection, Supple Respiratory: Lungs Clear, No Respiratory Distress Cardiovascular: Regular Rate, Rhythm, No Murmur Gastrointestinal: Distended, Guarding, Tenderness Neurologic/Psychiatric: Alert, Oriented x3, Normal Mood/Affect Skin: Normal Color, Warm/Dry Results Results/Procedures Labs Laboratory Tests 03/13/21 09:10 Patient resulted labs reviewed. Imaging: Reviewed Imaging Report Imaging [facility] [place], [place] NAME: WARD DALEY [facility] REC#: [id number] PT STATUS: REG ER : 1945 PHYSICIAN: BREANNA OSMAN MD ADMIT DATE: 03/13/21/ER Signed Date of Exam:03/13/21 CT ABDOMEN/PELVIS WO CT ABDOMEN/PELVIS WO TECHNIQUE: Unenhanced CT imaging of the abdomen and pelvis was performed. 2-D reformats are created and submitted for interpretation. Automatic exposure controls were utilized to optimize patient dose. INDICATION: Nausea and diarrhea. Vomiting. COMPARISON: None available. FINDINGS: Evaluation of the abdominal viscera is mildly limited without contrast. Lower chest: The lung bases are clear. No pericardial or pleural effusion. Peritoneum: No free intraperitoneal air or fluid. Liver and biliary system: Unenhanced liver is normal. Cholecystectomy. Common bile duct is mildly dilated likely due to postcholecystectomy state and reservoir effect. Spleen and Pancreas: Spleen is normal. Diffuse fatty atrophy throughout the pancreas without mass or inflammation. Adrenals: Normal. tract: No renal or ureteral calculi. No obstructive uropathy. Hysterectomy. No adnexal mass. GI tract: Stomach is mildly distended with fluid and air without wall thickening. The proximal small bowel loops are fluid and air-filled with a jejunal loop measuring up to 4.0 cm. There are few foci of gas along the wall of jejunum which are unlikely to be within the wall. There is mild engorgement of the mesenteric vasculature. Periumbilical hernia is present containing a loop of small bowel, although there is no decompression of bowel distal to this. No pericolonic inflammatory changes. Colon is fluid filled. Sigmoid diverticulosis without diverticulitis. Vasculature and Lymph nodes: Normal caliber aorta. No abdominal or pelvic lymphadenopathy. Musculoskeletal: No concerning osseous lesion. IMPRESSION: 1. Imaging features are most indicative of enteritis involving the jejunum. There is questionable area of pneumatosis in the proximal small bowel loop, although this may simply be due to air trapped between intraluminal debris. If there is strong clinical suspicion for ischemia, CT abdomen with IV contrast according to the mesenteric ischemia protocol could be performed. Otherwise, followup small bowel followthrough may be useful. Case was discussed with Dr. Bal by Dr. Lara at 10:25 AM on 03/13/2021. Dictated by: Dictated on workstation # [id number] Dict: 03/13/21 1010 Trans: 03/13/21 1138 [facility] [id number] Interpreted by: KAPIL LARA MD Electronically signed by: KAPIL LARA MD 03/13/21 1138 Assessment/Plan Assessment and Plan Assess & Plan/Chief Complaint Enteritis and possible pneumatosis lactic acidosis Management per primary Continue Cipro and Flagyl Continue pain medications Zofran for nausea Spoke with lab who will draw repeat lactic now GLADYS Baseline creatinine around 1.3 Up to 2.3 today, trend HTN BP well controlled, trend Hold home meds NIDDMII Appears to be just on glipizide, hold for now SSI Hypothyroidism Resume synthroid when she can take PO COPD Continue Home inhalers when med rec done Diagnosis/Problems Diagnosis/Problems (1) Enteritis (2) Acute kidney injury Status: Acute (3) Nausea vomiting and diarrhea Status: Acute (4) T2DM (type 2 diabetes mellitus) Status: Chronic (5) HLD (hyperlipidemia) Status: Chronic (6) Obesity Status: Chronic (7) Hypothyroidism Status: Chronic (8) GERD (gastroesophageal reflux disease) Status: Chronic MONTY KRUGER MD Mar 13, 2021 12:11
[2021-03-13 13:05] VITALS: BP 111/73
[2021-03-13] MEDS ORDERED: fentaNYL INJ 100 MCG/2 ML AMP IVP PRN (13:30)
[2021-03-13] MEDS: LACTATED RINGERS 1,000 ML IV SCH ×2 (13:30→21:43)
[2021-03-13] MEDS ORDERED: ONDANSETRON 4 MG/2 ML (SDV) Z0FRAN IVP PRN (13:30)
--- NOTE | 2021-03-13 15:05 | HISTORY AND PHYSICAL ---
DATE OF SERVICE: ATTENDING PRIMARY CARE PHYSICIAN: Kelly Velasco APRN. HISTORY OF PRESENT ILLNESS: The patient is a 75-year-old female known to us. She presented to the Emergency Department with onset of abdominal pain after eating breakfast. She reports that she has had some milder symptoms in the past two weeks and just has not felt hungry and has had a few episodes of nausea and vomiting. She does not report any hematemesis and no coffee-ground emesis. She is having diarrhea and she did have an episode today. A CT scan was performed, which did show distention of the stomach and jejunum. There is also a question of enteritis. She does not report any recent travel or new foods or drinking water sources. PAST MEDICAL HISTORY: Coronary artery disease, bilateral lower extremity edema, congestive heart disease, hypercholesterolemia, hypertension, chronic renal insufficiency, gastroesophageal reflux disease, non-insulin dependent diabetes, and asthma. PAST SURGICAL HISTORY: Laparoscopic cholecystectomy, incisional hernia repair, cardiac catheterization and stent placement. ALLERGIES: IODINATED CONTRAST MEDIA, NONSTEROIDAL ANTI-INFLAMMATORIES and GLIMEPIRIDE. MEDICATIONS: Albuterol two puffs q.4 hours p.r.n., aspirin 81 mg daily, atorvastatin 40 mg daily, budesonide two puffs b.i.d., cyclobenzaprine 5 mg b.i.d., Dexilant 60 mg daily, iron 325 mg b.i.d., Colace 100 mg b.i.d., fluticasone spray b.i.d., levothyroxine 88 mcg daily, lisinopril 20 mg daily, and Brilinta 90 mg b.i.d. SOCIAL HISTORY: Negative smoke and negative alcohol. FAMILY HISTORY: Noncontributory. REVIEW OF SYSTEMS: A well-nourished female, currently in no acute distress. She is not experiencing any shortness of breath or difficulty in breathing. No chest pain, palpitations or diaphoresis. She does report anorexia and has not been eating much in the last two weeks. She developed crampy abdominal pain after eating breakfast this morning. She did have an episode of nausea and vomiting. No hematemesis and no coffee-ground emesis. She is also having diarrhea with the last episode this morning as well. No red blood per rectum and no dark tarry stools. No fever, chills, and no recent inadvertent weight loss. All other review of systems negative. PHYSICAL EXAMINATION: VITAL SIGNS: Temperature 36.2, blood pressure 111/73, pulse 86, respirations 18, and pulse ox 98% on room air. CHEST: Clear. Good breath sounds bilaterally. HEART: Regular, no murmurs. EXTREMITIES: No lower extremity edema and negative Homans sign. HEENT: No scleral icterus. NECK: No cervical lymphadenopathy. ABDOMEN: Soft and distended. Mild discomfort in the lower abdominal quadrants. No peritoneal signs. No hernias. SKIN: Warm and dry. LABORATORY DATA: WBC 11.7, hemoglobin 10.5, hematocrit 34, and platelets 251. BUN 45 and creatinine 2.35. ASSESSMENT AND PLAN: A 75-year-old female with ileus versus a partial small bowel obstruction. Based on examination, there does not appear to be any ischemic changes or peritonitis. We will proceed with conservative management with IV fluids as well as IV antibiotics, bowel rest, and a repeat physical examination as well as laboratory work. Job ID: [id number] DocumentID: [id number] Dictated Date: 03/13/2021 14:39:32 Marketing Executive Date: 03/13/2021 15:05:26 Dictated By: OSCAR ACOSTA MD
[2021-03-13] MEDS ORDERED: LOPE-175 PO (15:27)
[2021-03-13] MEDS ORDERED: MENT5LOZ3 MM (15:27)
[2021-03-13] MEDS ORDERED: MENT113P TP (15:27)
[2021-03-13] MEDS ORDERED: TETR15DR49 OU (15:27)
[2021-03-13] MEDS ORDERED: GUAI5LIQ11 PO (15:27)
[2021-03-13] MEDS ORDERED: ROSU20TA32 PO (15:27)
[2021-03-13] MEDS ORDERED: TICA90TA PO (15:27)
[2021-03-13] MEDS ORDERED: LOSA100T57 PO (15:27)
[2021-03-13] MEDS ORDERED: MONT10TA32 PO (15:27)
[2021-03-13] MEDS ORDERED: FURO20TA4 PO (15:27)
[2021-03-13] MEDS ORDERED: IPRA3AMP31 IH (15:27)
[2021-03-13] MEDS ORDERED: [UNRECOGNIZED DRUG - CODE] PO (15:27)
[2021-03-13] MEDS ORDERED: HYDR28.428 TP (15:27)
[2021-03-13] MEDS ORDERED: MULT-166 PO (15:27)
[2021-03-13] MEDS ORDERED: ACET-93 PO (15:27)
[2021-03-13] MEDS ORDERED: ONDA4TAB11 PO (15:27)
[2021-03-13] MEDS ORDERED: ACET325C7 PO (15:27)
[2021-03-13] MEDS ORDERED: GLIP10TA13 (15:39)
[2021-03-13] MEDS ORDERED: GLIP5TAB13 PO (15:39)
--- NOTE | 2021-03-13 15:49 | Diagnostic Imaging Report ---
INDICATION: Nausea and vomiting. COMPARISON: CT from earlier same day. FINDINGS: Two supine radiographic views of the abdomen were obtained. There is fnto-xu-ztdqoshd amount of gas scattered throughout the small bowel. There are a few more prominent distended air-filled loops of small bowel within the central and left hemiabdomen. These are felt to correspond a proximal jejunal loop seen on CT from earlier same day. Small bowel measures approximately 6 cm in diameter. There is no large collection of free intraperitoneal air. Multiple air-fluid levels are also noted scattered throughout. No unexpected radiopaque foreign bodies are seen. Osseous structures show age-related degenerative changes. IMPRESSION: 1. Multiple loops of abnormal air-distended small bowel and multiple air-fluid levels, greatest involving the proximal jejunum. Findings could be on the basis of enteritis, although partial obstruction or generalized ileus is also consideration. Correlation with small bowel follow-through is advised. Dictated by: Dictated on workstation # [id number]
[2021-03-13 16:04] VITALS: BP 123/74
[2021-03-13] MEDS: metroNIDAZOLE 500 MG/100 ML IVPB (PRE-MIX) IV SCH (16:30)
[2021-03-13 19:30] VITALS: BP 135/73
[2021-03-13] MEDS: FAMOTIDINE 20MG/2ML IV (PEPCID) IVP SCH (20:30)
[2021-03-13 23:30] VITALS: BP 113/55
[2021-03-14] VITALS (7 sets, daily range): BP systolic 118–145; BP diastolic 56–71
[2021-03-14] MEDS: metroNIDAZOLE 500 MG/100 ML IVPB (PRE-MIX) IV SCH ×5 (00:55→23:23)
[2021-03-14 05:12] LABS: BASOPHILS % (AUTO) 0 % (0-10); EOSINOPHILS # (AUTO) 0.3 10^3/uL (0.0-0.3); EOSINOPHILS % (AUTO) 3 % (0-10); HEMATOCRIT 29 % (35-52); HEMOGLOBIN 9.2 g/dL (11.5-16.0); LYMPHOCYTES # (AUTO) 1.7 10^3/uL (1.0-4.0); LYMPHOCYTES % (AUTO) 17 % (12-44); MEAN CORPUSCULAR HEMOGLOBIN 32 pg (25-34); MEAN CORPUSCULAR HGB CONC 32 g/dL (32-36); MEAN CORPUSCULAR VOLUME 101 fL (80-99); MEAN PLATELET VOLUME 10.8 fL (9.0-12.2); MONOCYTES # (AUTO) 0.7 10^3/uL (0.0-1.0); MONOCYTES % (AUTO) 7 % (0-12); NEUTROPHILS # (AUTO) 7.4 10^3/uL (1.8-7.8); NEUTROPHILS % (AUTO) 74 % (42-75); PLATELET COUNT 260 10^3/uL (130-400); WHITE BLOOD COUNT 10.1 10^3/uL (4.3-11.0)
[2021-03-14 05:25] LABS: POTASSIUM 3.9 MMOL/L (3.6-5.0)
[2021-03-14 05:26] LABS: CALCIUM 8.6 MG/DL (8.5-10.1)
[2021-03-14] MEDS: LACTATED RINGERS 1,000 ML IV SCH ×4 (05:27→23:23)
[2021-03-14 05:31] LABS: CREATININE SERUM 1.85 MG/DL (0.60-1.30)
[2021-03-14 06:39] LABS: BILIRUBIN,URINE NEGATIVE (NEGATIVE); CLARITY,URINE CLEAR; COLOR,URINE YELLOW; GLUCOSE, URINE (UA) NEGATIVE (NEGATIVE); KETONES,URINE NEGATIVE (NEGATIVE); LEUKOCYTE ESTERASE ,URINE NEGATIVE (NEGATIVE); NITRITE,URINE NEGATIVE (NEGATIVE); PROTEIN,URINE TRACE (NEGATIVE)
[2021-03-14 06:48] LABS: AMORPHOUS SEDIMENT,UR FEW AMOR URATES /LPF; BACTERIA,URINE NEGATIVE /HPF; WBC,URINE RARE /HPF
[2021-03-14] MEDS: FAMOTIDINE 20MG/2ML IV (PEPCID) IVP SCH ×2 (08:00→21:01)
[2021-03-14] MEDS ORDERED: GLIP10TA13 PO (09:33)
--- NOTE | 2021-03-14 09:52 | Progress Note - Hospitalist ---
Subjective HPI/CC On Admission Date Seen by Provider: Mar 14, 2021 Time Seen by Provider: 09:46 Patient is a 75-year-old female with a past medical history of mcn-nrodqmr-vqnmznnqm type 2 diabetes, COPD, hypothyroidism who presented to the emergency department due to nausea, vomiting, abdominal pain. She normally resides at new home but has been on Aleve with her son. Over the past few days she has not felt well and has had nausea and vomiting. This morning she went to the dentist but they and ate pancakes and then could not quit vomiting. She is also had diarrhea. In the emergency department she was found to be quite distended and CT abdomen was performed. This revealed enteritis involving the jejunum and possible pneumatosis in the proximal small bowel loop. She is admitted to Dr. ACOSTA I am consulted for medical management. Subjective/Events-last exam Pt reports doing well. Pain and bloating in abd improved. Focused Exam Lactate Level 03/13/21 09:10: Lactic Acid Level 2.59*H 03/13/21 12:19: Lactic Acid Level 1.91 Objective Exam Vital Signs Vital Signs Date Time Temp Pulse Resp B/P (MAP) Pulse Ox O2 Delivery O2 Flow Rate FiO2 03/14/21 08:00 93 Nasal Cannula 2.00 03/14/21 07:55 37.2 98 16 126/57 (80) Capillary Refill : Less Than 3 Seconds General Appearance: No Apparent Distress, Chronically ill, Obese Respiratory: Lungs Clear, No Respiratory Distress Cardiovascular: Regular Rate, Rhythm, No Murmur Gastrointestinal: Normal Bowel Sounds, Non Tender, Distended (improved though from yesterday); No Guarding Extremity: No Calf Tenderness, No Pedal Edema Neurologic/Psychiatric: Alert, Oriented x3 Results/Procedures Lab Laboratory Tests 03/14/21 05:05 Patient resulted labs reviewed. Imaging: Reviewed Imaging Report Assessment/Plan Assessment and Plan Assess & Plan/Chief Complaint Enteritis and possible pneumatosis lactic acidosis- resolved Management per primary Continue Cipro and Flagyl Continue pain medications- has not needed any overnight Zofran for nausea GLADYS Baseline creatinine around 1.3 Down to 1.85 today HTN BP well controlled, trend Hold home meds NIDDMII Appears to be just on glipizide, hold for now SSI- blood sugar well contorlled Hypothyroidism Resume synthroid when she can take PO COPD Continue Home inhalers when med rec done Normally wears nocturnal oxygen, oxygen ordered Diagnosis/Problems Diagnosis/Problems (1) Enteritis (2) Acute kidney injury Status: Acute (3) Nausea vomiting and diarrhea Status: Acute (4) T2DM (type 2 diabetes mellitus) Status: Chronic (5) HLD (hyperlipidemia) Status: Chronic (6) Obesity Status: Chronic (7) Hypothyroidism Status: Chronic (8) GERD (gastroesophageal reflux disease) Status: Chronic MONTY KRUGER MD Mar 14, 2021 09:52
[2021-03-14] MEDS ORDERED: inSUlin ASPART (NovoLOG) 1 UNIT/0.01 ML (CHARGE PER UNIT) SC SCH ×2 (11:00→12:00)
[2021-03-14] MEDS: CIPROFLOXACIN 400 MG/D5W 200 ML (PRE-MIX) IV SCH (11:25)
[2021-03-14] MEDS ORDERED: RT-ALBUTEROL/IPRATROPIUM 3 ML (DUONEB) VIAL INH PRN (13:00)
[2021-03-14] MEDS: RT-ALBUTEROL/IPRATROPIUM 3 ML (DUONEB) VIAL INH SCH (15:17)
[2021-03-14] MEDS: inSUlin ASPART (NovoLOG) 1 UNIT/0.01 ML (CHARGE PER UNIT) SC SCH ×2 (16:52→21:01)
[2021-03-15 04:42] VITALS: BP 138/64
[2021-03-15] MEDS: metroNIDAZOLE 500 MG/100 ML IVPB (PRE-MIX) IV SCH ×3 (05:39→18:31)
[2021-03-15] MEDS: inSUlin ASPART (NovoLOG) 1 UNIT/0.01 ML (CHARGE PER UNIT) SC SCH ×4 (05:39→20:44)
[2021-03-15] MEDS: RT-ALBUTEROL/IPRATROPIUM 3 ML (DUONEB) VIAL INH SCH ×4 (07:34→18:52)
[2021-03-15 07:50] VITALS: BP 127/72
[2021-03-15] MEDS: LEVOTHYROXINE 88 MCG (LEVOTHORID) TAB PO SCH (08:09)
[2021-03-15] MEDS: LACTATED RINGERS 1,000 ML IV SCH ×2 (08:09→12:34)
--- NOTE | 2021-03-15 08:47 | Progress Note - Hospitalist ---
Subjective HPI/CC On Admission Date Seen by Provider: Mar 15, 2021 Time Seen by Provider: 08:42 Patient is a 75-year-old female with a past medical history of bek-djonayy-wjirqnpba type 2 diabetes, COPD, hypothyroidism who presented to the emergency department due to nausea, vomiting, abdominal pain. She normally resides at new home but has been on Aleve with her son. Over the past few days she has not felt well and has had nausea and vomiting. This morning she went to the dentist but they and ate pancakes and then could not quit vomiting. She is also had diarrhea. In the emergency department she was found to be quite distended and CT abdomen was performed. This revealed enteritis involving the jejunum and possible pneumatosis in the proximal small bowel loop. She is admitted to Dr. ACOSTA I am consulted for medical management. Subjective/Events-last exam Pt reports feeling well. No complaints. Tolerated CLD yesterday. About to go to the bathroom. No BM since admission. Focused Exam Lactate Level 03/13/21 09:10: Lactic Acid Level 2.59*H 03/13/21 12:19: Lactic Acid Level 1.91 Objective Exam Vital Signs Vital Signs Date Time Temp Pulse Resp B/P (MAP) Pulse Ox O2 Delivery O2 Flow Rate FiO2 03/15/21 07:50 37.0 88 20 127/72 (90) 95 Nasal Cannula 0.50 03/14/21 15:13 1 Capillary Refill : Less Than 3 Seconds General Appearance: No Apparent Distress, Chronically ill, Obese Respiratory: Lungs Clear, No Respiratory Distress Cardiovascular: Regular Rate, Rhythm, No Murmur Gastrointestinal: Non Tender, Soft, Abnormal Bowel Sounds (quiet) Neurologic/Psychiatric: Alert, Oriented x3 Results/Procedures Lab Patient resulted labs reviewed. Imaging: Reviewed Imaging Report Assessment/Plan Assessment and Plan Assess & Plan/Chief Complaint Enteritis and possible pneumatosis lactic acidosis- resolved Management per primary Continue Cipro and Flagyl Zofran for nausea Tolerating clears well GLADYS Baseline creatinine around 1.3 labs ordered for today HTN BP well controlled, trend Hold home meds due to good control NIDDMII Appears to be just on glipizide, hold for now SSI- blood sugar well contorlled Hypothyroidism Synthroid COPD Continue Home inhalers when med rec done Normally wears nocturnal oxygen, oxygen ordered Patient stable, will round prn Diagnosis/Problems Diagnosis/Problems (1) Enteritis (2) Acute kidney injury Status: Acute (3) Nausea vomiting and diarrhea Status: Acute (4) T2DM (type 2 diabetes mellitus) Status: Chronic (5) HLD (hyperlipidemia) Status: Chronic (6) Obesity Status: Chronic (7) Hypothyroidism Status: Chronic (8) GERD (gastroesophageal reflux disease) Status: Chronic MONTY KRUGER MD Mar 15, 2021 08:47
[2021-03-15] MEDS ORDERED: NON-FORMULARY MEDICATION 1 EA EA (Budesonide/Formoterol Fumarate (Symbicort 160-4.5 Mcg In INH SCH (09:00)
[2021-03-15] MEDS ORDERED: RT-ALBUTEROL SULF 2.5 MG/3 ML PRE-MIX VIAL INH PRN (09:00)
--- NOTE | 2021-03-15 09:28 | Progress Note ---
Subjective Date Seen by a Provider: Mar 15, 2021 Time Seen by a Provider: 09:10 Subjective/Events-last exam Patient seen with Dr. Malone. Patient reports doing well. Denies any N/V, abdominal pain, or any flatus or BMs. Tolerating clear liquid diet. Focused Exam Lactate Level 03/13/21 09:10: Lactic Acid Level 2.59*H 03/13/21 12:19: Lactic Acid Level 1.91 Objective Exam Vital Signs Date Time Temp Pulse Resp B/P (MAP) Pulse Ox O2 Delivery O2 Flow Rate FiO2 03/15/21 07:50 37.0 88 20 127/72 (90) 95 Nasal Cannula 0.50 03/15/21 07:34 93 Nasal Cannula 0.50 03/15/21 07:00 86 03/15/21 04:42 36.8 87 20 138/64 (88) 93 Nasal Cannula 1.00 03/15/21 01:00 84 03/14/21 23:52 36.8 86 20 129/56 (80) 95 Nasal Cannula 1.00 03/14/21 20:00 9 Nasal Cannula 1.00 03/14/21 19:56 36.8 95 20 121/69 (86) 92 Nasal Cannula 1.00 03/14/21 19:00 100 03/14/21 18:56 93 Nasal Cannula 2.00 03/14/21 16:00 36.0 89 22 120/67 (84) 96 Nasal Cannula 1.00 03/14/21 15:13 Nasal Cannula 1 03/14/21 13:00 87 03/14/21 11:37 36.6 111 95 21 03/14/21 11:08 36.8 88 18 118/68 (85) 98 Nasal Cannula 2.00 I & O 03/15/21 07:00 Intake Total 520 ml Output Total 1200 ml Balance -680 ml Capillary Refill : Less Than 3 Seconds General Appearance: No Apparent Distress, WD/WN Neck: Normal Inspection, Supple Respiratory: No Accessory Muscle Use, No Respiratory Distress Cardiovascular: Regular Rate, Rhythm, No Edema Gastrointestinal: non tender, soft, distended Extremity: Normal Inspection, Normal Range of Motion Neurologic/Psychiatric: Alert, Oriented x3 Skin: Normal Color, Warm/Dry Results Lab Laboratory Tests 03/14/21 11:18: Glucometer 105 03/14/21 16:49: Glucometer 94 03/14/21 20:45: Glucometer 153H 03/15/21 05:22: Glucometer 121H Microbiology 03/13/21 Blood Culture - Preliminary, Resulted No growth Assessment/Plan Assessment/Plan Assess & Plan/Chief Complaint A 75-year-old female with ileus versus a partial small bowel obstruction. VSS WBC 10.1 Continue with conservative management with IV fluids and abx Pain and nausea meds as needed Will await bowel function, and once she has more then will advance diet. SHUN OLVERA DECORATOR HAND Mar 15, 2021 09:28
--- NOTE | 2021-03-15 10:23 | Diagnostic Imaging Report ---
INDICATION: Ileus. TIME OF EXAM: 9:27 AM CORRELATION is made with prior radiograph from 03/13/2021. There continues to be moderate gaseous distention of small bowel loops within the central abdomen. This appears similar to prior exam. There is a small amount of gas within decompressed colon. There are surgical clips in the right upper quadrant. No pathologic calcifications are seen. IMPRESSION: Continued moderate gaseous distention of small bowel loops central abdomen, nonspecific. A small bowel study may be useful for further evaluation. Continued progress films would be recommended. Dictated by: Dictated on workstation # [id number]
[2021-03-15 10:59] LABS: HEMATOCRIT 29 % (35-52); HEMOGLOBIN 8.9 g/dL (11.5-16.0); MEAN CORPUSCULAR HEMOGLOBIN 32 pg (25-34); MEAN CORPUSCULAR HGB CONC 30 g/dL (32-36); MEAN CORPUSCULAR VOLUME 104 fL (80-99); MEAN PLATELET VOLUME 10.5 fL (9.0-12.2); PLATELET COUNT 206 10^3/uL (130-400); WHITE BLOOD COUNT 7.7 10^3/uL (4.3-11.0)
[2021-03-15 11:22] LABS: CALCIUM 8.9 MG/DL (8.5-10.1); CREATININE SERUM 1.65 MG/DL (0.60-1.30); POTASSIUM 3.5 MMOL/L (3.6-5.0)
[2021-03-15] MEDS: TICAGRELOR 90 MG TABLET (BRILINTA) PO SCH ×2 (11:24→19:59)
[2021-03-15] MEDS: CIPROFLOXACIN 400 MG/D5W 200 ML (PRE-MIX) IV SCH (11:24)
[2021-03-15 11:49] VITALS: BP 111/57
[2021-03-15 16:01] VITALS: BP 120/69
--- NOTE | 2021-03-15 16:26 | Progress Note ---
Subjective Date Seen by a Provider: Mar 15, 2021 Time Seen by a Provider: 15:00 Subjective/Events-last exam doing better. passing flatus. tolerating clears. less abd distention. Focused Exam Lactate Level 03/13/21 09:10: Lactic Acid Level 2.59*H 03/13/21 12:19: Lactic Acid Level 1.91 Objective Exam Vital Signs Date Time Temp Pulse Resp B/P (MAP) Pulse Ox O2 Delivery O2 Flow Rate FiO2 03/15/21 16:01 36.6 86 20 120/69 (86) 95 Nasal Cannula 0.50 03/15/21 15:00 94 Nasal Cannula 0.50 03/15/21 13:00 86 03/15/21 11:49 35.6 93 18 111/57 (75) 95 Nasal Cannula 0.50 03/15/21 10:56 93 Nasal Cannula 0.50 03/15/21 08:22 9 Nasal Cannula 1.00 03/15/21 07:50 37.0 88 20 127/72 (90) 95 Nasal Cannula 0.50 03/15/21 07:34 93 Nasal Cannula 0.50 03/15/21 07:00 86 03/15/21 04:42 36.8 87 20 138/64 (88) 93 Nasal Cannula 1.00 03/15/21 01:00 84 03/14/21 23:52 36.8 86 20 129/56 (80) 95 Nasal Cannula 1.00 03/14/21 20:00 9 Nasal Cannula 1.00 03/14/21 19:56 36.8 95 20 121/69 (86) 92 Nasal Cannula 1.00 03/14/21 19:00 100 03/14/21 18:56 93 Nasal Cannula 2.00 I & O 03/15/21 07:00 Intake Total 520 ml Output Total 1200 ml Balance -680 ml Capillary Refill : Less Than 3 Seconds General Appearance: No Apparent Distress HEENT: PERRL/EOMI Neck: Full Range of Motion Respiratory: Chest Non Tender, Lungs Clear Cardiovascular: Regular Rate, Rhythm Gastrointestinal: normal bowel sounds, soft, distended Extremity: Normal Capillary Refill Neurologic/Psychiatric: Alert, Oriented x3 Skin: Normal Color Lymphatic: No Adenopathy Results Lab Laboratory Tests 03/14/21 16:49: Glucometer 94 03/14/21 20:45: Glucometer 153H 03/15/21 05:22: Glucometer 121H 03/15/21 10:15: White Blood Count 7.7, Red Blood Count 2.81L, Hemoglobin 8.9L, Hematocrit 29L, Mean Corpuscular Volume 104H, Mean Corpuscular Hemoglobin 32, Mean Corpuscular Hemoglobin Concent 30L, Red Cell Distribution Width 13.0, Platelet Count 206, Mean Platelet Volume 10.5, Sodium Level 140, Potassium Level 3.5L, Chloride Level 104, Carbon Dioxide Level 26, Anion Gap 10, Blood Urea Nitrogen 17, Creatinine 1.65H, Estimat Glomerular Filtration Rate 30, BUN/Creatinine Ratio 10, Glucose Level 158H, Calcium Level 8.9 03/15/21 11:11: Glucometer 121H 03/15/21 15:27: Glucometer 94 Microbiology 03/13/21 Blood Culture - Preliminary, Resulted No growth 03/13/21 Urine Culture - Final, Complete Mixed Bacterial Joanna Assessment/Plan Assessment/Plan Assess & Plan/Chief Complaint ileus. advance dys3 diet. increase ambulation. OSCAR ACOSTA MD Mar 15, 2021 16:26
[2021-03-15] MEDS: SUCRALFATE 1 GM (CARAFATE) TAB PO SCH (16:49)
[2021-03-15] MEDS: PANTOPRAZOLE 40 MG (PROTONIX) TAB PO SCH (16:49)
[2021-03-15] MEDS: FLUTICASONE NASAL SPRAY (FLONASE) 16 GM BTL NS SCH (16:50)
[2021-03-15] MEDS: RT--FLUTICASONE/SALMETEROL 232-14 (AIRDUO RespiCLICK) IH SCH (18:53)
[2021-03-15 19:38] VITALS: BP 121/59
[2021-03-15] MEDS: FAMOTIDINE 20MG/2ML IV (PEPCID) IVP SCH (19:59)
[2021-03-15] MEDS: MONTELUKAST 10 MG (SINGULAIR) TAB PO SCH (19:59)
[2021-03-15] MEDS: ROSUVASTATIN 20 MG (CRESTOR) TABLET PO SCH (19:59)
[2021-03-15 23:54] VITALS: BP 127/71
[2021-03-16] MEDS: metroNIDAZOLE 500 MG/100 ML IVPB (PRE-MIX) IV SCH ×4 (00:17→17:23)
[2021-03-16 04:03] VITALS: BP 139/79
[2021-03-16] MEDS: inSUlin ASPART (NovoLOG) 1 UNIT/0.01 ML (CHARGE PER UNIT) SC SCH ×4 (05:30→20:08)
[2021-03-16 05:45] LABS: HEMATOCRIT 29 % (35-52); HEMOGLOBIN 8.8 g/dL (11.5-16.0); MEAN CORPUSCULAR HEMOGLOBIN 31 pg (25-34); MEAN CORPUSCULAR HGB CONC 31 g/dL (32-36); MEAN CORPUSCULAR VOLUME 102 fL (80-99); MEAN PLATELET VOLUME 10.5 fL (9.0-12.2); PLATELET COUNT 209 10^3/uL (130-400); WHITE BLOOD COUNT 7.9 10^3/uL (4.3-11.0)
[2021-03-16] MEDS: SUCRALFATE 1 GM (CARAFATE) TAB PO SCH ×2 (05:53→16:45)
[2021-03-16 05:58] LABS: ALBUMIN 3.3 GM/DL (3.2-4.5)
[2021-03-16 06:00] LABS: CALCIUM 9.3 MG/DL (8.5-10.1)
[2021-03-16 06:01] LABS: TOTAL PROTEIN 6.2 GM/DL (6.4-8.2)
[2021-03-16 06:03] LABS: BILIRUBIN,TOTAL 0.3 MG/DL (0.1-1.0)
[2021-03-16 06:05] LABS: CREATININE SERUM 1.59 MG/DL (0.60-1.30)
[2021-03-16] MEDS: RT--FLUTICASONE/SALMETEROL 232-14 (AIRDUO RespiCLICK) IH SCH ×2 (07:40→19:30)
[2021-03-16] MEDS: RT-ALBUTEROL/IPRATROPIUM 3 ML (DUONEB) VIAL INH SCH ×4 (07:40→19:29)
[2021-03-16] MEDS: FLUTICASONE NASAL SPRAY (FLONASE) 16 GM BTL NS SCH (08:11)
[2021-03-16] MEDS: PANTOPRAZOLE 40 MG (PROTONIX) TAB PO SCH (08:11)
[2021-03-16] MEDS: LEVOTHYROXINE 88 MCG (LEVOTHORID) TAB PO SCH (08:11)
[2021-03-16] MEDS: TICAGRELOR 90 MG TABLET (BRILINTA) PO SCH ×2 (08:11→20:07)
[2021-03-16 08:24] VITALS: BP 137/63
--- NOTE | 2021-03-16 10:15 | Diagnostic Imaging Report ---
History: Ileus, partial small bowel obstruction COMPARISON: 03/15/2021 TECHNIQUE: Upright and supine frontal views of the abdomen FINDINGS: There are multiple distended loops of small bowel in the mid and left abdomen which appears similar to the prior exam. Fluid levels are noted. No large collection of free air is seen. Very little bowel gas is seen in the colon. IMPRESSION: 1. Unchanged small bowel distention. Dictated by: Dictated on workstation # [id number]
[2021-03-16] MEDS: CIPROFLOXACIN 400 MG/D5W 200 ML (PRE-MIX) IV SCH (11:10)
--- NOTE | 2021-03-16 11:10 | Progress Note ---
Subjective Date Seen by a Provider: Mar 16, 2021 Time Seen by a Provider: 10:00 Subjective/Events-last exam doing ok. states able to tolerate dys3 diet w/o difficulty. no N/V. states passing flatus but no BM yet. Focused Exam Lactate Level 03/13/21 12:19: Lactic Acid Level 1.91 Objective Exam Vital Signs Date Time Temp Pulse Resp B/P (MAP) Pulse Ox O2 Delivery O2 Flow Rate FiO2 03/16/21 08:50 9 Nasal Cannula 1.00 03/16/21 08:24 35.7 98 20 137/63 (87) 98 Nasal Cannula 0.50 03/16/21 07:40 95 Nasal Cannula 0.50 03/16/21 07:00 87 03/16/21 04:03 36.4 85 17 139/79 (99) 95 Nasal Cannula 0.50 03/16/21 01:00 96 03/15/21 23:54 37.2 86 18 127/71 (89) 94 Nasal Cannula 0.50 03/15/21 20:00 9 Nasal Cannula 1.00 03/15/21 19:38 37.3 98 18 121/59 (79) 93 Nasal Cannula 0.50 03/15/21 19:00 90 03/15/21 18:53 95 Nasal Cannula 0.50 03/15/21 16:01 36.6 86 20 120/69 (86) 95 Nasal Cannula 0.50 03/15/21 15:00 94 Nasal Cannula 0.50 03/15/21 13:00 86 03/15/21 11:49 35.6 93 18 111/57 (75) 95 Nasal Cannula 0.50 I & O0 03/16/21 07:00 Intake Total 2828 ml Output Total 2650 ml Balance 178 ml Capillary Refill : Less Than 3 Seconds General Appearance: No Apparent Distress HEENT: PERRL/EOMI Neck: Full Range of Motion Respiratory: Chest Non Tender, Lungs Clear Cardiovascular: Regular Rate, Rhythm Gastrointestinal: normal bowel sounds, soft, distended Extremity: Normal Capillary Refill Neurologic/Psychiatric: Alert, Oriented x3 Skin: Normal Color Lymphatic: No Adenopathy Results Lab Laboratory Tests 03/15/21 11:11: Glucometer 121H 03/15/21 15:27: Glucometer 94 03/15/21 20:36: Glucometer 146H 03/16/21 05:29: Glucometer 129H 03/16/21 05:37: White Blood Count 7.9, Red Blood Count 2.80L, Hemoglobin 8.8L, Hematocrit 29L, Mean Corpuscular Volume 102H, Mean Corpuscular Hemoglobin 31, Mean Corpuscular Hemoglobin Concent 31L, Red Cell Distribution Width 12.7, Platelet Count 209, Me an Platelet Volume 10.5, Sodium Level 139, Potassium Level 4.0, Chloride Level 104, Carbon Dioxide Level 23, Anion Gap 12, Blood Urea Nitrogen 16, Creatinine 1.59H, Estimat Glomerular Filtration Rate 32, BUN/Creatinine Ratio 10, Glucose Level 140H, Calcium Level 9.3, Corrected Calcium 9.9, Total Bilirubin 0.3, Aspartate Amino Transf (AST/SGOT) 10, Alanine Aminotransferase (ALT/SGPT) 19, Alkaline Phosphatase 82, Total Protein 6.2L, Albumin 3.3 Microbiology 03/13/21 Blood Culture - Preliminary, Resulted No growth 03/13/21 Urine Culture - Final, Complete Mixed Bacterial Joanna Assessment/Plan Assessment/Plan Assess & Plan/Chief Complaint ileus v. PSBO advance dys3 diet. increase ambulation. await more bowel fxn. will continue to follow clinically as well as serial AXR. OSCAR ACOSTA MD Mar 16, 2021 11:10
[2021-03-16 12:53] VITALS: BP 136/64
[2021-03-16 15:19] VITALS: BP 137/60
[2021-03-16 19:04] VITALS: BP 143/66
[2021-03-16] MEDS: METOCLOPRAMIDE INJ 10 MG/2 ML (REGLAN) IVP SCH (20:07)
[2021-03-16] MEDS: MONTELUKAST 10 MG (SINGULAIR) TAB PO SCH (20:07)
[2021-03-16] MEDS: ROSUVASTATIN 20 MG (CRESTOR) TABLET PO SCH (20:07)
[2021-03-16] MEDS: FAMOTIDINE 20 MG (PEPCID) TABLET PO SCH (20:07)
[2021-03-17] VITALS (10 sets, daily range): BP systolic 139–159; BP diastolic 63–83
[2021-03-17] MEDS: metroNIDAZOLE 500 MG/100 ML IVPB (PRE-MIX) IV SCH ×4 (00:09→17:59)
[2021-03-17] MEDS: SUCRALFATE 1 GM (CARAFATE) TAB PO SCH ×2 (05:55→16:48)
[2021-03-17] MEDS: inSUlin ASPART (NovoLOG) 1 UNIT/0.01 ML (CHARGE PER UNIT) SC SCH ×4 (06:02→21:11)
[2021-03-17] MEDS: RT-ALBUTEROL/IPRATROPIUM 3 ML (DUONEB) VIAL INH SCH ×4 (07:25→19:11)
[2021-03-17] MEDS: RT--FLUTICASONE/SALMETEROL 232-14 (AIRDUO RespiCLICK) IH SCH ×2 (07:27→19:12)
[2021-03-17] MEDS: PANTOPRAZOLE 40 MG (PROTONIX) TAB PO SCH (07:58)
[2021-03-17] MEDS: METOCLOPRAMIDE INJ 10 MG/2 ML (REGLAN) IVP SCH ×2 (07:58→19:45)
[2021-03-17] MEDS: LEVOTHYROXINE 88 MCG (LEVOTHORID) TAB PO SCH (07:58)
[2021-03-17] MEDS: TICAGRELOR 90 MG TABLET (BRILINTA) PO SCH ×2 (07:59→19:45)
[2021-03-17] MEDS: FLUTICASONE NASAL SPRAY (FLONASE) 16 GM BTL NS SCH (07:59)
--- NOTE | 2021-03-17 08:01 | Progress Note - Surgery ---
Subjective Date Seen by a Provider: Mar 17, 2021 Time Seen by a Provider: 07:53 Subjective/Events-last exam Pt Resting comfortably in chair and eating breakfast. She is using her ICS 10x every hour. She had a BM last night without blood, that was brown and clumpy in character. She states her abdominal discomfort and distention is greatly improved from yesterday. Review of Systems General: No Chills, No Night Sweats, No Malaise; Appetite HEENT: No Head Aches, No Visual Changes, No Eye Pain, No Ear Pain, No Dysphasia Pulmonary: No Dyspnea, No Cough, No Pleuritic Chest Pain Cardiovascular: No: Chest Pain, Palpitations, Orthopnea, Paroxysmal Noc. Dyspnea Gastrointestinal: No: Nausea, Vomiting, Diarrhea, Melena, Hematochezia Genitourinary: No Dysuria, No Frequency, No Incontinence, No Hematuria Musculoskeletal: No: neck pain, shoulder pain, arm pain, back pain, hand pain, leg pain 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: No: Weakness, Numbness, Incoordination, Change in speech Objective Exam Vital Signs Date Time Temp Pulse Resp B/P (MAP) Pulse Ox O2 Delivery O2 Flow Rate FiO2 03/17/21 07:34 96 Nasal Cannula 0.50 03/17/21 07:00 80 03/17/21 04:29 36.2 92 20 139/75 (96) 95 Nasal Cannula 0.50 03/17/21 01:00 89 03/17/21 00:09 36.0 98 20 151/67 (95) 94 Nasal Cannula 0.50 03/16/21 20:10 Nasal Cannula 0.50 03/16/21 19:32 97 Nasal Cannula 0.50 03/16/21 19:04 36.2 91 20 143/66 (91) 94 Nasal Cannula 0.50 03/16/21 19:00 92 03/16/21 15:53 94 Nasal Cannula 0.50 03/16/21 15:19 36.0 86 20 137/60 (85) 99 Nasal Cannula 0.50 03/16/21 12:53 36.0 90 20 136/64 (88) 97 Nasal Cannula 0.50 03/16/21 12:42 89 03/16/21 11:40 95 Nasal Cannula 0.50 03/16/21 08:50 9 Nasal Cannula 1.00 10/22/21 08:24 35.7 98 20 137/63 (87) 98 Nasal Cannula 0.50 I & O 03/17/21 07:00 Intake Total 1660 ml Output Total 2250 ml Balance -590 ml Capillary Refill : Less Than 3 Seconds General Appearance: No Apparent Distress, WD/WN HEENT: PERRL/EOMI, Pharynx Normal, Moist Mucous Membranes Neck: Full Range of Motion, Non Tender, Supple Respiratory: Chest Non Tender, Lungs Clear, Normal Breath Sounds, No Respiratory Distress Cardiovascular: Regular Rate, Rhythm, Normal Peripheral Pulses Peripheral Pulses: 2+ Radial Pulses (R), 2+ Radial Pulses (L) Gastrointestinal: normal bowel sounds, soft, distended (PT states distention is reduced after BM and flatus late yesterday) Extremity: Normal Capillary Refill, Normal Range of Motion, Non Tender, No Calf Tenderness (cervial and axillary) Neurologic/Psychiatric: Alert, Oriented x3 Skin: Normal Color Lymphatic: No Adenopathy Results Lab Laboratory Tests 03/16/21 15:21: Glucometer 100 03/16/21 20:07: Glucometer 132H 03/17/21 05:57: Glucometer 118H Microbiology 03/13/21 Blood Culture - Preliminary, Resulted No growth 03/13/21 Urine Culture - Final, Complete Mixed Bacterial Joanna Assessment/Plan Assessment/Plan Assessment/Plan ileus v. PSBO Continue dys3 diet. Continue ambulation. Await more BM and continue to follow clinically as well as serial AXR. Continue ICS use. DONALD HILARIO Mar 17, 2021 08:01
--- NOTE | 2021-03-17 09:02 | Diagnostic Imaging Report ---
ABDOMEN, FLAT UPRIGHT/DECUB INDICATION: Ileus versus partial small bowel obstruction COMPARISON: 03/16/2021 TECHNIQUE: Supine and upright imaging of the abdomen FINDINGS: There remain multiple air and fluid-filled loops of small bowel and colon. The degree of gaseous distention of small bowel has diminished. No features of free intraperitoneal air. Cholecystectomy clips. Severe degenerative arthritis of both hips. IMPRESSION: Improving but persistent gaseous distention of small bowel with air-fluid levels is likely on the basis of ileus. Dictated by: Dictated on workstation # [id number]
--- NOTE | 2021-03-17 10:51 | Progress Note ---
Subjective Date Seen by a Provider: Mar 17, 2021 Time Seen by a Provider: 10:00 Subjective/Events-last exam doing ok. tolerating diet with no N/V. did have bowel movement. still has abd distention, minimal pain. Objective Exam Vital Signs Date Time Temp Pulse Resp B/P (MAP) Pulse Ox O2 Delivery O2 Flow Rate FiO2 03/17/21 08:00 Nasal Cannula 0.50 03/17/21 08:00 37.0 88 20 159/83 (108) 95 Nasal Cannula 0.50 03/17/21 07:34 96 Nasal Cannula 0.50 03/17/21 07:00 80 03/17/21 04:29 36.2 92 20 139/75 (96) 95 Nasal Cannula 0.50 03/17/21 01:00 89 03/17/21 00:09 36.0 98 20 151/67 (95) 94 Nasal Cannula 0.50 03/16/21 20:10 Nasal Cannula 0.50 03/16/21 19:32 97 Nasal Cannula 0.50 03/16/21 19:04 36.2 91 20 143/66 (91) 94 Nasal Cannula 0.50 03/16/21 19:00 92 03/16/21 15:53 94 Nasal Cannula 0.50 03/16/21 15:19 36.0 86 20 137/60 (85) 99 Nasal Cannula 0.50 03/16/21 12:53 36.0 90 20 136/64 (88) 97 Nasal Cannula 0.50 03/16/21 12:42 89 03/16/21 11:40 95 Nasal Cannula 0.50 I & O 03/17/21 07:00 Intake Total 1660 ml Output Total 2250 ml Balance -590 ml Capillary Refill : Less Than 3 Seconds General Appearance: No Apparent Distress HEENT: PERRL/EOMI Neck: Full Range of Motion Respiratory: Chest Non Tender, Lungs Clear Cardiovascular: Regular Rate, Rhythm Gastrointestinal: normal bowel sounds, non tender, soft, distended Extremity: Normal Capillary Refill Neurologic/Psychiatric: Alert, Oriented x3 Skin: Normal Color Lymphatic: No Adenopathy Results Lab Laboratory Tests 03/16/21 15:21: Glucometer 100 03/16/21 20:07: Glucometer 132H 03/17/21 05:57: Glucometer 118H Microbiology 03/13/21 Blood Culture - Preliminary, Resulted No growth 03/13/21 Urine Culture - Final, Complete Mixed Bacterial Joanna Assessment/Plan Assessment/Plan Assess & Plan/Chief Complaint ileus v. PSBO advance dys3 diet. increase ambulation. await more bowel fxn. will continue to follow clinically as well as serial AXR. OSCAR ACOSTA MD Mar 17, 2021 10:51
[2021-03-17] MEDS: CIPROFLOXACIN 400 MG/D5W 200 ML (PRE-MIX) IV SCH (10:56)
[2021-03-17] MEDS: ROSUVASTATIN 20 MG (CRESTOR) TABLET PO SCH (19:44)
[2021-03-17] MEDS: FAMOTIDINE 20 MG (PEPCID) TABLET PO SCH (19:45)
[2021-03-17] MEDS: MONTELUKAST 10 MG (SINGULAIR) TAB PO SCH (19:45)
[2021-03-18] VITALS (7 sets, daily range): BP systolic 138–167; BP diastolic 71–82
[2021-03-18] MEDS: metroNIDAZOLE 500 MG/100 ML IVPB (PRE-MIX) IV SCH ×3 (00:28→12:48)
[2021-03-18] MEDS: SUCRALFATE 1 GM (CARAFATE) TAB PO SCH ×2 (06:09→16:50)
[2021-03-18] MEDS: inSUlin ASPART (NovoLOG) 1 UNIT/0.01 ML (CHARGE PER UNIT) SC SCH ×4 (06:15→20:48)
[2021-03-18] MEDS: RT--FLUTICASONE/SALMETEROL 232-14 (AIRDUO RespiCLICK) IH SCH ×2 (07:24→18:30)
[2021-03-18] MEDS: RT-ALBUTEROL/IPRATROPIUM 3 ML (DUONEB) VIAL INH SCH ×4 (07:24→18:29)
--- NOTE | 2021-03-18 08:52 | Diagnostic Imaging Report ---
EXAMINATION: Abdomen 2 view HISTORY: Ileus or bowel obstruction COMPARISON: 03/17/2021 FINDINGS: There is a moderate amount of gas and stool throughout the colon. Increasing dilatation of the loop of bowel within the mid abdomen measuring up to 5.8 cm. Upper quadrant cholecystectomy clips are present. The lung bases are clear. Degenerative changes of the hips and spine. Osseous structures are otherwise intact. IMPRESSION: Mildly increased dilatation of the loop of small bowel in the mid abdomen concerning for developing small bowel obstruction. Dictated by: Dictated on workstation # [id number]
[2021-03-18] MEDS: TICAGRELOR 90 MG TABLET (BRILINTA) PO SCH ×2 (09:03→19:45)
[2021-03-18] MEDS: METOCLOPRAMIDE INJ 10 MG/2 ML (REGLAN) IVP SCH ×3 (09:03→18:01)
[2021-03-18] MEDS: FLUTICASONE NASAL SPRAY (FLONASE) 16 GM BTL NS SCH (09:03)
[2021-03-18] MEDS: PANTOPRAZOLE 40 MG (PROTONIX) TAB PO SCH (09:03)
[2021-03-18] MEDS: LEVOTHYROXINE 88 MCG (LEVOTHORID) TAB PO SCH (09:03)
--- NOTE | 2021-03-18 10:51 | Progress Note ---
Subjective Date Seen by a Provider: Mar 18, 2021 Time Seen by a Provider: 10:00 Subjective/Events-last exam doing ok. no complaints. passing flatus but no BM today. tolerating diet with no N/V. no abd pain. Objective Exam Vital Signs Date Time Temp Pulse Resp B/P (MAP) Pulse Ox O2 Delivery O2 Flow Rate FiO2 03/18/21 07:24 96 Nasal Cannula 0.50 03/18/21 07:24 96 Room Air 03/18/21 07:15 37.2 78 24 167/77 (107) 97 Room Air 03/18/21 07:00 83 03/18/21 04:03 36.6 93 20 151/71 (97) 95 Nasal Cannula 0.50 03/18/21 01:00 90 03/18/21 00:33 36.7 92 20 161/74 (103) 94 Nasal Cannula 0.50 03/17/21 20:19 37.3 90 97 03/17/21 20:00 37.6 90 20 150/67 (94) 96 Nasal Cannula 0.50 03/17/21 19:55 Nasal Cannula 0.50 03/17/21 19:12 97 Nasal Cannula 0.50 03/17/21 19:00 86 03/17/21 16:00 37.3 90 18 140/63 (88) 98 Nasal Cannula 0.50 03/17/21 14:42 94 Nasal Cannula 0.50 03/17/21 12:53 90 03/17/21 11:26 37.4 90 20 159/73 (101) 95 Nasal Cannula 0.50 03/17/21 10:52 96 Nasal Cannula 0.50 I & O 03/18/21 07:00 Intake Total 1850 ml Output Total 2400 ml Balance -550 ml Capillary Refill : Less Than 3 Seconds General Appearance: No Apparent Distress HEENT: PERRL/EOMI Neck: Full Range of Motion Respiratory: Chest Non Tender, Lungs Clear, Normal Breath Sounds Gastrointestinal: normal bowel sounds, non tender, distended Extremity: Normal Capillary Refill Neurologic/Psychiatric: Alert, Oriented x3 Skin: Normal Color Lymphatic: No Adenopathy Results Lab Laboratory Tests 03/17/21 10:51: Glucometer 120H 03/17/21 16:44: Glucometer 102 03/17/21 21:10: Glucometer 141H 03/18/21 06:12: Glucometer 116H Microbiology 03/13/21 Blood Culture - Preliminary, Resulted No growth 03/13/21 Urine Culture - Final, Complete Mixed Bacterial Joanna Assessment/Plan Assessment/Plan Assess & Plan/Chief Complaint ileus v. PSBO advance dys3 diet. increase ambulation. await more bowel fxn. will continue to follow clinically as well as serial AXR. OSCAR ACOSTA MD Mar 18, 2021 10:51
[2021-03-18] MEDS: MONTELUKAST 10 MG (SINGULAIR) TAB PO SCH (19:45)
[2021-03-18] MEDS: FAMOTIDINE 20 MG (PEPCID) TABLET PO SCH (19:45)
[2021-03-18] MEDS: ROSUVASTATIN 20 MG (CRESTOR) TABLET PO SCH (19:45)
[2021-03-19] MEDS: METOCLOPRAMIDE INJ 10 MG/2 ML (REGLAN) IVP SCH ×4 (00:34→16:41)
[2021-03-19 04:00] VITALS: BP 151/78
[2021-03-19] MEDS: inSUlin ASPART (NovoLOG) 1 UNIT/0.01 ML (CHARGE PER UNIT) SC SCH ×4 (05:24→21:08)
[2021-03-19] MEDS: SUCRALFATE 1 GM (CARAFATE) TAB PO SCH ×2 (05:25→16:41)
[2021-03-19 07:45] VITALS: BP 160/84
[2021-03-19] MEDS: RT-ALBUTEROL/IPRATROPIUM 3 ML (DUONEB) VIAL INH SCH ×4 (08:20→18:41)
[2021-03-19] MEDS ORDERED: DIATRIZOATE MEGLUM/SODIUM 37% 120 ML (GASTROGRAFIN) PO ONE (08:30)
[2021-03-19] MEDS: PANTOPRAZOLE 40 MG (PROTONIX) TAB PO SCH (11:16)
[2021-03-19] MEDS: LEVOTHYROXINE 88 MCG (LEVOTHORID) TAB PO SCH (11:16)
[2021-03-19] MEDS: TICAGRELOR 90 MG TABLET (BRILINTA) PO SCH ×2 (11:17→21:08)
[2021-03-19] MEDS: FLUTICASONE NASAL SPRAY (FLONASE) 16 GM BTL NS SCH (11:19)
[2021-03-19] MEDS: RT--FLUTICASONE/SALMETEROL 232-14 (AIRDUO RespiCLICK) IH SCH ×2 (11:32→18:41)
[2021-03-19 12:27] VITALS: BP 149/82
--- NOTE | 2021-03-19 13:22 | Diagnostic Imaging Report ---
INDICATION: Ileus versus small bowel obstruction. TECHNIQUE: The patient ingested a mixture of 120 cc of Gastrografin contrast and 120 cc of water and serial radiographs of the abdomen were obtained. COMPARISON: Correlation is made with abdominal radiographs from one day earlier. FINDINGS: There are some dilated small bowel loops in the central abdomen. There does appear to be some transition to normal-caliber small bowel loops more distally. However, no obstruction is seen. Contrast does reach the right colon at 2 hours and 30 minutes. No mass lesion is identified. IMPRESSION: There is some small bowel distention in the proximal and mid small bowel with transition distally. However, contrast reaches the right colon in 2 hours 30 minutes. No complete obstruction is visualized. Dictated by: Dictated on workstation # [id number]
[2021-03-19 16:14] VITALS: BP 157/73
--- NOTE | 2021-03-19 18:30 | Discharge Inst-Surgical ---
D/C Lap Instructions-DAVE Follow Up PRN Activity as tolerated High Fiber Diet 25g or more per day. Stool softeners PRN to promote daily bowel movements. Avoid Alcohol, Caffeine, Spicy [place] and Acid foods. Drink 64 fluid oz or more of fluids per day. Symptoms to Report: Fever over 101 degree F, Nausea/Vomiting If any problems/questions: Contact your physician or go to Emergency Room OSCAR ACOSTA MD Mar 19, 2021 18:30
[2021-03-19 20:31] VITALS: BP 143/64
[2021-03-19] MEDS: ROSUVASTATIN 20 MG (CRESTOR) TABLET PO SCH (21:07)
[2021-03-19] MEDS: MONTELUKAST 10 MG (SINGULAIR) TAB PO SCH (21:07)
[2021-03-19] MEDS: FAMOTIDINE 20 MG (PEPCID) TABLET PO SCH (21:08)
[2021-03-20] VITALS: BP 144/70
[2021-03-20] MEDS: METOCLOPRAMIDE INJ 10 MG/2 ML (REGLAN) IVP SCH ×3 (01:01→11:23)
[2021-03-20 04:12] VITALS: BP 125/62
[2021-03-20] MEDS: inSUlin ASPART (NovoLOG) 1 UNIT/0.01 ML (CHARGE PER UNIT) SC SCH ×2 (05:43→10:40)
[2021-03-20] MEDS: RT--FLUTICASONE/SALMETEROL 232-14 (AIRDUO RespiCLICK) IH SCH (07:07)
[2021-03-20] MEDS: RT-ALBUTEROL/IPRATROPIUM 3 ML (DUONEB) VIAL INH SCH ×2 (07:07→10:38)
[2021-03-20 07:26] LABS: BASOPHILS % (AUTO) 0 % (0-10); EOSINOPHILS # (AUTO) 0.4 10^3/uL (0.0-0.3); EOSINOPHILS % (AUTO) 4 % (0-10); HEMATOCRIT 30 % (35-52); HEMOGLOBIN 9.4 g/dL (11.5-16.0); LYMPHOCYTES % (AUTO) 20 % (12-44); MEAN CORPUSCULAR HEMOGLOBIN 31 pg (25-34); MEAN CORPUSCULAR HGB CONC 31 g/dL (32-36); MEAN CORPUSCULAR VOLUME 100 fL (80-99); MEAN PLATELET VOLUME 9.9 fL (9.0-12.2); MONOCYTES # (AUTO) 0.9 10^3/uL (0.0-1.0); MONOCYTES % (AUTO) 9 % (0-12); NEUTROPHILS # (AUTO) 6.5 10^3/uL (1.8-7.8); NEUTROPHILS % (AUTO) 64 % (42-75); PLATELET COUNT 260 10^3/uL (130-400); WHITE BLOOD COUNT 10.1 10^3/uL (4.3-11.0)
[2021-03-20 07:40] LABS: ALBUMIN 3.4 GM/DL (3.2-4.5); POTASSIUM 4.2 MMOL/L (3.6-5.0)
[2021-03-20 07:41] LABS: CALCIUM 9.1 MG/DL (8.5-10.1)
[2021-03-20 07:43] LABS: TOTAL PROTEIN 6.5 GM/DL (6.4-8.2)
[2021-03-20 07:44] LABS: BILIRUBIN,TOTAL 0.3 MG/DL (0.1-1.0)
[2021-03-20 07:46] LABS: CREATININE SERUM 1.54 MG/DL (0.60-1.30)
[2021-03-20 07:51] VITALS: BP 123/72
[2021-03-20] MEDS: PANTOPRAZOLE 40 MG (PROTONIX) TAB PO SCH (08:42)
[2021-03-20] MEDS: LEVOTHYROXINE 88 MCG (LEVOTHORID) TAB PO SCH (08:42)
[2021-03-20] MEDS: FLUTICASONE NASAL SPRAY (FLONASE) 16 GM BTL NS SCH (08:42)
[2021-03-20] MEDS: SUCRALFATE 1 GM (CARAFATE) TAB PO SCH (08:42)
[2021-03-20] MEDS: TICAGRELOR 90 MG TABLET (BRILINTA) PO SCH (08:43)
[2021-03-20 10:42] VITALS: BP 123/72
--- NOTE | 2021-03-20 11:05 | Progress Note ---
FAHAD SAINZ 03/20/21 1105: Subjective Date Seen by a Provider: Mar 20, 2021 Time Seen by a Provider: 09:00 Subjective/Events-last exam Pt breathing heavily (hx COPD) Feeling "fine, no pain" Had 2 BM yesterday, 1 this morning Voiding regularly On CLD Focused Exam Respiratory: Lungs Clear, Normal Breath Sounds, Accessory Muscle Use Cardiovascular: Regular Rate, Rhythm Skin: normal color Objective Exam Last Set of Vital Signs Vital Signs Date Time Temp Pulse Resp B/P (MAP) Pulse Ox O2 Delivery O2 Flow Rate FiO2 03/20/21 10:42 36.7 74 97 03/20/21 10:39 Room Air 03/20/21 07:51 22 123/72 (89) 1.50 03/14/21 15:13 1 Capillary Refill : Less Than 3 Seconds I&O Intake and Output 03/20/21 00:00 Intake Total 740 ml Output Total 2625 ml Balance -1885 ml Intake Oral 740 ml Output Urine Total 2625 ml # Bowel Movements 5 General: Alert, Oriented X3, Cooperative Lungs: Clear to Auscultation Heart: Regular Rate, No Murmurs Psych/Mental Status: Other (Intellectual disability) Results Lab Laboratory Tests 03/19/21 11:10: Glucometer 111H 03/19/21 16:11: Glucometer 110 03/19/21 20:33: Glucometer 136H 03/20/21 05:25: Glucometer 109 03/20/21 07:15: White Blood Count 10.1, Red Blood Count 3.01L, Hemoglobin 9.4L, Hematocrit 30L, Mean Corpuscular Volume 100H, Mean Corpuscular Hemoglobin 31, Mean Corpuscular Hemoglobin Concent 31L, Red Cell Distribution Width 13.0, Platelet Count 260, Mean Platelet Volume 9.9, Immature Granulocyte % (Auto) 4, Neutrophils (%) (Auto) 64, Lymphocytes (%) (Auto) 20, Monocytes (%) (Auto) 9, Eosinophils (%) (Auto) 4, Basophils (%) (Auto) 0, Neutrophils # (Auto) 6.5, Lymphocytes # (Auto) 2.0, Monocytes # (Auto) 0.9, Eosinophils # (Auto) 0.4H, Basophils # (Auto) 0.0, Immature Granulocyte # (Auto) 0.4H, Sodium Level 139, Potassium Level 4.2, Chloride Level 106, Carbon Dioxide Level 22, Anion Gap 11, Blood Urea Nitrogen 13, Creatinine 1.54H, Estimat Glomerular Filtration Rate 33, BUN/Creatinine Ratio 8, Glucose Level 126H, Calcium Level 9.1, Corrected Calcium 9.6, Total Bilirubin 0.3, Aspartate Amino Transf (AST/SGOT) 29, Alanine Aminotransferase (ALT/SGPT) 20, Alkaline Phosphatase 73, Total Protein 6.5, Albumin 3.4 03/20/21 10:31: Glucometer 133H Microbiology 03/13/21 Blood Culture - Final, Complete No growth 03/13/21 Urine Culture - Final, Complete Mixed Bacterial Joanna Assessment/Plan Assessment/Plan Assess & Plan/Chief Complaint Assessment: Acute enteritis/possible pneumonitis GLADYS HTN NIDDMII Hypothyroid COPD Megaloblastic anemia Intellectual disability Plan: Small bowel Xray showed no complete obstruction Serial abd Xrays showed persistent distention of small bowel loops Continue Flagyl, Cipro and Zofran for enteritis management Pt to continue high fiber diet, and stool softeners Cr improved at 1.54 Hold HTN meds and glipizide Started synthroid Restart home inhalers once abx course is done Continue anticoag with Ticagrelor D/C telemetry F/u with [place] about D/C plans CHERELLE LAMBERT DO 03/21/21 0604: Subjective Subjective/Events-last exam Patient doing well Unsure if she has had a BM Intellectual delay precludes details Tolerating clear liquid diet Review of Systems General: Fatigue, Malaise Objective Exam General: Alert, Oriented X3, Cooperative, No Acute Distress Lungs: Clear to Auscultation, Normal Air Movement Heart: Regular Rate, Normal S1, Normal S2, No Murmurs Psych/Mental Status: Mental Status NL, Mood NL Assessment/Plan Assessment/Plan Assess & Plan/Chief Complaint Discharge if okay with Dr. ACOSTA Supportive care Supervisory-Addendum Brief Verification & Attestation Participated in pt care: history, MDM, physical Personally performed: exam, history, MDM, supervision of care Care discussed with: Medical Student Procedures: n/a Results interpretation: Verified all documentation Verification and Attestation of Medical Student E/M Service A medical student performed and documented this service in my presence. I reviewed and verified all information documented by the medical student and made modifications to such information, when appropriate. I personally performed the physical exam and medical decision making. Cherelle Lambert, Mar 21, 2021,06:03 FAHAD SAINZ Mar 20, 2021 11:05 CHERELLE LAMBERT DO Mar 21, 2021 06:04
[2021-03-20 11:18] VITALS: BP 140/65
--- NOTE | 2021-03-20 13:09 | Progress Note ---
Subjective Date Seen by a Provider: Mar 20, 2021 Time Seen by a Provider: 13:00 Subjective/Events-last exam doing well. tolerating diet and having multiple bowel movements. no abd pain/distention. Objective Exam Vital Signs Date Time Temp Pulse Resp B/P (MAP) Pulse Ox O2 Delivery O2 Flow Rate FiO2 03/20/21 12:00 03/20/21 11:18 37.2 75 28 140/65 (90) 93 Room Air 03/20/21 10:42 36.7 74 97 03/20/21 10:39 97 Room Air 03/20/21 08:46 92 Room Air 03/20/21 07:51 36.7 74 22 123/72 (89) 92 Nasal Cannula 1.50 03/20/21 07:07 97 Nasal Cannula 2.00 03/20/21 07:00 86 03/20/21 04:12 36.8 82 18 125/62 (83) 95 Nasal Cannula 1.50 03/20/21 01:01 85 03/20/21 00:00 37.0 89 20 144/70 (94) 96 Nasal Cannula 1.50 03/19/21 20:31 36.7 86 20 143/64 (90) 96 Nasal Cannula 1.50 03/19/21 20:00 Room Air 03/19/21 19:00 97 03/19/21 18:41 95 Nasal Cannula 2.00 03/19/21 16:14 37.3 80 18 157/73 (101) 99 Nasal Cannula 1.50 I & O 03/20/21 07:00 Intake Total 820 ml Output Total 1825 ml Balance -1005 ml Capillary Refill : Less Than 3 Seconds General Appearance: No Apparent Distress HEENT: PERRL/EOMI Neck: Full Range of Motion Respiratory: Chest Non Tender, Lungs Clear, Normal Breath Sounds Cardiovascular: Regular Rate, Rhythm Gastrointestinal: normal bowel sounds, non tender, soft Extremity: Normal Capillary Refill Neurologic/Psychiatric: Alert, Oriented x3 Skin: Normal Color Lymphatic: No Adenopathy Results Lab Laboratory Tests 03/19/21 16:11: Glucometer 110 03/19/21 20:33: Glucometer 136H 03/20/21 05:25: Glucometer 109 03/20/21 07:15: White Blood Count 10.1, Red Blood Count 3.01L, Hemoglobin 9.4L, Hematocrit 30L, Mean Corpuscular Volume 100H, Mean Corpuscular Hemoglobin 31, Mean Corpuscular Hemoglobin Concent 31L, Red Cell Distribution Width 13.0, Platelet Count 260, Mean Platelet Volume 9.9, Immature Granulocyte % (Auto) 4, Neutrophils (%) (Auto) 64, Lymphocytes (%) (Auto) 20, Monocytes (%) (Auto) 9, Eosinophils (%) (Auto) 4, Basophils (%) (Auto) 0, Neutrophils # (Auto) 6.5, Lymphocytes # (Auto) 2.0, Monocytes # (Auto) 0.9, Eosinophils # (Auto) 0.4H, Basophils # (Auto) 0.0, Immature Granulocyte # (Auto) 0.4H, Sodium Level 139, Potassium Level 4.2, Chloride Level 106, Carbon Dioxide Level 22, Anion Gap 11, Blood Urea Nitrogen 13, Creatinine 1.54H, Estimat Glomerular Filtration Rate 33, BUN/Creatinine Ratio 8, Glucose Level 126H, Calcium Level 9.1, Corrected Calcium 9.6, Total Bilirubin 0.3, Aspartate Amino Transf (AST/SGOT) 29, Alanine Aminotransferase (ALT/SGPT) 20, Alkaline Phosphatase 73, Total Protein 6.5, Albumin 3.4 03/20/21 10:31: Glucometer 133H Microbiology 03/13/21 Blood Culture - Final, Complete No growth 03/13/21 Urine Culture - Final, Complete Mixed Bacterial Joanna Assessment/Plan Assessment/Plan Assess & Plan/Chief Complaint ileus resolving regular diet. increase ambulation. ok for return to [place]. OSCAR ACOSTA MD Mar 20, 2021 13:09
--- NOTE | 2021-03-21 04:23 | DISCHARGE SUMMARY ---
DATE OF SERVICE: ADMISSION DIAGNOSIS: Partial small-bowel obstruction. DISCHARGE DIAGNOSIS: Partial small-bowel obstruction. OTHER DIAGNOSES: Coronary artery disease, congestive heart failure, hypercholesterolemia, hypertension, chronic renal insufficiency, diabetes, asthma, gastroesophageal reflux disease, developmental delay. PROCEDURES: No procedures. COMPLICATIONS: No complications. DISPOSITION: Home in stable condition. HOSPITAL COURSE: The patient is a 75-year-old female known to us. She presented to the Emergency Department with onset of abdominal pain after eating breakfast as well as abdominal distention. She reports that she has had milder symptoms similar to this two weeks previous and had experienced anorexia as well as episodes of nausea and vomiting. She was having diarrhea. A CT scan was performed, which did show distention of the stomach as well as the proximal small bowel. There was a question of enteritis as well. She does not report any recent travel as well as no foods or new drinking water sources. She was admitted and treated conservatively with bowel rest and IV hydration. She was able to ambulate well and sat up in a chair for number of hours a day. She did have serial labs, which were normal as well as serial abdominal x-rays, which did continue to show some distention of small bowel; however, did improve over time. She was started on a clear liquid diet and advanced to a soft diet without any difficulty. The abdominal x-ray readings again did show some distention of proximal small bowel and we then proceeded with a Gastrografin small bowel follow through, which did show contrast going to the colon within 2.5 hours. Shortly after that, she was able to have multiple loose bowel movements. She continued to tolerate a regular diet and continued to have a bowel function. HOME-GOING INSTRUCTIONS: Diet as tolerated. Resume previous home medications. No activity restrictions. Follow up tj Job ID: [id number] DocumentID: [id number] Dictated Date: 03/20/2021 13:13:56 [employer] Date: 03/21/2021 04:23:07 Dictated By: OSCAR ACOSTA MD
== END 2021-03-20 13:25 | disposition home or self-care (01) | DRG 683 ==
LOC: EDUNIT# 07:56 → ER 07:58 → 4TH 11:40
PROVIDERS: ADMIT Surgery; ATTEND Surgery
DX: N17.9 Acute kidney failure, unspecified (principal); K56.600 Partial intestinal obstruction, unspecified as to cause; I13.0 Hypertensive heart and chronic kidney disease with heart failure and stage 1 through stage 4 chronic kidney disease, or unspecified chronic kidney disease; E87.2 Acidosis; K52.9 Noninfective gastroenteritis and colitis, unspecified; E11.22 Type 2 diabetes mellitus with diabetic chronic kidney disease; N18.30 Chronic kidney disease, stage 3 unspecified; I50.9 Heart failure, unspecified; Z20.822 Contact with and (suspected) exposure to COVID-19; E78.00 Pure hypercholesterolemia, unspecified; Q24.9 Congenital malformation of heart, unspecified; J45.909 Unspecified asthma, uncomplicated; I25.10 Atherosclerotic heart disease of native coronary artery without angina pectoris; E66.9 Obesity, unspecified; Z68.36 Body mass index [BMI] 36.0-36.9, adult; F79 Unspecified intellectual disabilities; K21.9 Gastro-esophageal reflux disease without esophagitis; M19.91 Primary osteoarthritis, unspecified site; J44.9 Chronic obstructive pulmonary disease, unspecified; E03.9 Hypothyroidism, unspecified; D53.1 Other megaloblastic anemias, not elsewhere classified; Z95.5 Presence of coronary angioplasty implant and graft; Z79.84 Long term (current) use of oral hypoglycemic drugs; Z88.8 Allergy status to other drugs, medicaments and biological substances; Z91.041 Radiographic dye allergy status
CPT/HCPCS: 36410; 36415; 71045; 74019; 74176; 74250; 76937; 80048; 80053; 81000; 82947; 83605; 84439; 84443; 85025; 85027; 86141; 87040; 87088; 87636; 94640; 94760; 96361; 96374; 96375

== ENCOUNTER 2021-05-13 08:32 | Emergency (ER) | payer MEDICARE, MEDICAID ==
[~2021-05-13] VITALS: Ht 160 cm; Wt 98.4 kg
[~2021-05-13 08:32] MED LIST changes: +ACET-93 PO; +FURO20TA4 PO; +GLIP10TA13; +GLIP10TA13 PO; +GLIP5TAB13 PO; +GUAI5LIQ11 PO; +HYDR28.428 TP; +IPRA3AMP31 IH; +LOPE-175 PO; +LOSA100T57 PO; +MENT113P TP; +MENT5LOZ3 MM; +MONT-40 PO; +MULT-166 PO; +ROSU20TA32 PO; +TETR15DR49 OU; +[UNRECOGNIZED DRUG - CODE] PO
--- NOTE | 2021-05-13 08:46 | ED Chest Pain ---
General Chief Complaint: Chest Pain Stated Complaint: CHEST PAIN Source: patient Exam Limitations: no limitations History of Present Illness Date Seen by Provider: May 13, 2021 Time Seen by Provider: 08:35 Initial Comments Patient is a 75-year-old female brought to the emergency department by ambulance from what sounds like a custodial setting with a chief complaint of midsternal and right sided chest pain onset on . Patient states that taking a deep breath makes the pain a little bit worse. She does feel a little short of breath. She has not taken anything for the pain such as Tylenol aspirin or ibuprofen. She has no associated symptoms of nausea. She states she has had pain similar to this in the past "when my hernia acts up". She does have chronic cough. History of diabetes and hypertension. No abdominal pain. No pr oblems with bowel or bladder. EMS reports stable vital signs on transport. Patient states that she is Covid vaccinated but cannot recall when. All other review of systems reviewed and negative except as stated. Timing/Duration: 3-4 days Severity/Quality: moderate, aching Location: other (right chest) Radiation: no radiation Activities at Onset: none Modifying Factors: worse with coughing ASA po CABLE REELER: No NTG SL CABLE REELER: No Allergies and Home Medications Allergies Coded Allergies: Iodinated Contrast Media (Unverified Adverse Reaction, Unknown, 02/24/20) NSAIDS (Non-Steroidal Anti-Inflamma (Unverified Adverse Reaction, Unknown, 02/24/20) glimepiride (Unverified Adverse Reaction, Unknown, 02/24/20) Patient Home Medication List Home Medication List Reviewed: Yes Acetaminophen (Acetaminophen) 500 Mg Tablet, 1,000 MG PO BID, (Reported) Entered as Reported by: ZANE CASTELLANO on 03/13/21 1527 Acetaminophen (Tylenol) 325 Mg Capsule, 650 MG PO Q12H PRN for PAIN-MILD (1-4), (Reported) Entered as Reported by: ZANE CASTELLANO on 03/13/21 1527 Albuterol Sulfate (Ventolin Hfa) 1 Puff Puff, 2 PUFF INH Q6H PRN for SHORTNESS OF BREATH, (Reported) Entered as Reported by: INOCENTE CHADWICK on 02/24/20 0936 Budesonide/Formoterol Fumarate (Symbicort 160-4.5 Mcg Inhaler) 10.2 Gm Hfa.aer.ad, 2 PUFF INH BID, (Reported) Entered as Reported by: ROYA LERNER on 04/26/20 121 Calcium Carbonate (Calcium Carbonate) 500 Mg Tablet, 1,000 MG PO Q4H PRN for HEARTBURN, (Reported) Entered as Reported by: ROYA LERNER on 04/26/20 121 Chlorpheniramine/Dextromethorp (Chld Robitussin Night Cough Dm) 118 Ml Liquid, 5 ML PO Q6H PRN for COUGH, (Reported) Entered as Reported by: ZANE CASTELLANO on 03/13/21 1527 Cholecalciferol (Vitamin D3) (D3-2000) 50 Mcg Capsule, 50 MCG PO DAILY, (Reported) Entered as Reported by: INOCENTE CHADWICK on 02/24/20935 Cyclobenzaprine HCl (Cyclobenzaprine HCl) 5 Mg Tablet, 5 MG PO BID, (Reported) Entered as Reported by: ROYA LERNER on 04/26/201209 Dexlansoprazole (Dexilant) 60 Mg , 60 MG PO DAILY, (Reported) Entered as Reported by: ROYA LERNER on 04/26/20 121 Diphenhydramine HCl (Benadryl Allergy) 25 Mg Tablet, 25-50 MG PO Q6H PRN for ALLERGIC REACTIONS, (Reported) Entered as Reported by: ROYA LERNER on 04/26/201209 Docusate Sodium (Docusate Sodium) 100 Mg Capsule, 100 MG PO BID, (Reported) Entered as Reported by: INOCENTE CHADWICK on 02/24/20935 Ferrous Sulfate (Iron) 325 Mg Tablet, 325 MG PO BID, (Reported) Entered as Reported by: INOCENTE CHADWICK on 02/24/20935 Fluticasone Propionate (Flonase Allergy Relief) 9.9 Ml [place].susp, 1 SPRAY NSEACH DAILY, (Reported) Entered as Reported by: ROYA LERNER on 04/26/201209 Furosemide (Furosemide) 20 Mg Tablet, 20 MG PO DAILY, (Reported) Entered as Reported by: ZANE CASTELLANO on 03/13/21 1527 Glipizide (Glipizide) 10 Mg Tablet, 10 MG PO BID, (Reported) Entered as Reported by: ZANE CASTELLANO on 03/14/21 0933 Guaifenesin/Dextromethorphan (Guaifenesin-Dm 100-10 mg/5 ml) 5 Ml Liquid, 10 ML PO Q4H PRN for COUGH, (Reported) Entered as Reported by: ZANE CASTELLANO on 03/13/21 1527 Hydrocortisone Acetate (Hydrocortisone Acetate) 28.4 Gm Cream..g., 1 APPLIC TP Q8H PRN for RASH, (Reported) Entered as Reported by: ZANE CASTELLANO on 03/13/21 152 Ipratropium/Albuterol Sulfate (Iprat-Albut 0.5-3(2.5) mg/3 ml) 3 Ml Ampul.neb, 3 ML IH QID, (Reported) Entered as Reported by: ZANE CASTELLANO on 03/13/21 152 Levothyroxine Sodium (Synthroid) 88 Mcg Tablet, 88 MCG PO DAILY, (Reported) Entered as Reported by: SARAH CRUZ on 07/16/18 1302 Loperamide HCl (Imodium A-D) 2 Mg Capsule, 2 MG PO Q6H PRN for DIARRHEA, (Reported) Entered as Reported by: ZANE CASTELLANO on 03/13/21 152 Losartan Potassium (Losartan Potassium) 100 Mg Tablet, 100 MG PO DAILY, (Reported) Entered as Reported by: ZANE CASTELLANO on 03/13/21 152 Magnesium Hydroxide (Milk of Magnesia) 400 Mg/5 Ml Oral.susp, 30 ML PO Q12H PRN for CONSTIPATION-7TH LINE, (Reported) Entered as Reported by: ROYA LERNER on 04/26/20 1210 Magnesium Oxide (Magnesium Oxide) 400 Mg Tablet, 400 MG PO DAILY, (Reported) Entered as Reported by: INOCENTE CHADWICK on 02/24/20 0936 Meclizine HCl (Meclizine HCl) 25 Mg Tablet, 25 MG PO Q8H PRN for DIZZINESS, (Reported) Entered as Reported by: ROYA LERNER on 04/26/20 1210 Menthol (Cough Drops) 5 Mg Lozenge, 5 MG MM EVERY 1 HOUR PRN for COUGH, (Reported) Entered as Reported by: ZANE CASTELLANO on 03/13/21 1527 Menthol/Zinc Oxide (Gold López Medicated Body Powd) 113 Gm Powder, 1 APPLIC TP DAILY, (Reported) Entered as Reported by: ZANE CASTELLANO on 03/13/211526 Montelukast Sodium (Montelukast Sodium) 10 Mg Tablet, 10 MG PO HS, (Reported) Entered as Reported by: ZANE CASTELLANO on 03/13/211526 Multivitamin with Minerals (Multivitamins with Minerals) 1 Each Tablet, 1 EACH PO DAILY, (Reported) Entered as Reported by: ZANE CASTELLANO on 03/13/211526 [place]-3/Dha/Epa/Fish Oil (Fish Oil 1,000 mg Softgel) 1 Each Capsule, 1 EACH PO DAILY, (Reported) Entered as Reported by: INOCENTE CHADWICK on 02/24/20 0936 Ondansetron (Ondansetron Odt) 4 Mg Tab.rapdis, 4 MG PO Q8H PRN for NAUSEA/VOMITING-1ST LINE, (Reported) Entered as Reported by: ZANE CASTELLANO on 03/13/211526 Polyethylene Glycol 3350 (Miralax) 17 Gm Powd.pack, 17 GM PO DAILY PRN for CONSTIPATION-2ND LINE, (Reported) Entered as Reported by: ROYA LERNER on 04/26/20 1210 Rosuvastatin Calcium (Rosuvastatin Calcium) 20 Mg Tablet, 20 MG PO HS, (Re ported) Entered as Reported by: ZANE CASTELLANO on 03/13/211526 Sucralfate (Carafate) 1 Gm Tablet, 1 GM PO 0730,1600, (Reported) Entered as Reported by: INOCENTE CHADWICK on 02/24/20 0936 Tetrahydrozoline HCl (Tetrahydrozoline HCl) 15 Ml Drops, 2 DROPS OU Q6H PRN for DRY EYES, (Reported) Entered as Reported by: ZANE CASTELLANO on 03/13/21 152 Ticagrelor (Brilinta) 90 Mg Tablet, 90 MG PO BID, (Reported) Entered as Reported by: ZANE CASTELLANO on 03/13/211526 Review of Systems Review of Systems Constitutional: see HPI EENTM: No Symptoms Reported Respiratory: Shortness of Air Cardiovascular: Chest Pain Gastrointestinal: No Symptoms Reported Genitourinary: No Symptoms Reported Musculoskeletal: other (chest pain) Skin: no symptoms reported Psychiatric/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: No Symptoms Reported All Other Systems Reviewed Negative Unless Noted: Yes Past Ptydirx-Ahcdzf-Zepmpm Hx Immunizations Up To Date Tetanus Booster (TDap): More than 5yrs First/Initial COVID19 Vaccinat: STATES ONE SHOT ONLY Second COVID19 Vaccination Ross: STATES ONE SHOT ONLY Third COVID19 Vaccination Date: STATES ONE SHOT ONLY Seasonal Allergies Seasonal Allergies: No Past Medical History Surgeries: Yes Abdominal, Coronary Stent, Gallbladder Respiratory: Yes (SOB) Asthma Cardiac: Yes Chronic Edema/Swelling, Coronary Artery Disease, Congenital Heart Disease, High Cholesterol, Hypertension 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: No 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 History: Menopausal Sexually Transmitted Disease: No HIV/AIDS: No Genitourinary: Yes (STAGE 3) Renal Failure Gastrointestinal: Yes Gastroesophageal Reflux, Chronic Constipation, Hiatal Hernia Musculoskeletal: Yes Arthritis Endocrine: Yes Diabetes, Non-Insulin dep HEENT: No Cancer: No Psychosocial: Yes (m.r.) Integumentary: No Blood Disorders: Yes (ANEMIA) Adverse Reaction/Blood Tranf: No (N/A) Family Medical History No Pertinent Family Hx Physical Exam Vital Signs Vital Signs - First Documented 05/13/21 08:38 Pulse 96 Resp 17 B/P (MAP) 133/67 (89) Pulse Ox 96 O2 Delivery Room Air Capillary Refill : Height, Weight, BMI Height: 5'0.00" Weight: 180lbs. 0.0oz. 81.610127lu; 38.28 BMI Method: General Appearance: No Apparent Distress, WD/WN HEENT: PERRL/EOMI Neck: Normal Inspection Respiratory: Lungs Clear, Normal Breath Sounds, No Accessory Muscle Use, No Respiratory Distress, Other (very tender chest wall to palpation) Cardiovascular: Regular Rate, Rhythm, Normal Peripheral Pulses Gastrointestinal: Non Tender, Soft Extremity: Normal Inspection, Normal Range of Motion, Non Tender, No Pedal Edema Neurologic/Psychiatric: Alert, Oriented x3, No Motor/Sensory Deficits, Normal Mood/Affect Skin: Normal Color, Warm/Dry Progress/Results/Core Measures Results/Orders Lab Results Laboratory Tests Test 05/13/21 09:00 Range/Units White Blood Count 7.8 4.3-11.0 10^3/uL Red Blood Count 3.08 L 3.80-5.11 10^6/uL Hemoglobin 9.5 L 11.5-16.0 g/dL Hematocrit 31 L 35-52 % Mean Corpuscular Volume 99 80-99 fL Mean Corpuscular Hemoglobin 31 25-34 pg Mean Corpuscular Hemoglobin Concent 31 L 32-36 g/dL Red Cell Distribution Width 13.2 10.0-14.5 % Platelet Count 235 130-400 10^3/uL Mean Platelet Volume 10.3 9.0-12.2 fL Immature Granulocyte % (Auto) 1 % Neutrophils (%) (Auto) 63 42-75 % Lymphocytes (%) (Auto) 25 12-44 % Monocytes (%) (Auto) 8 0-12 % Eosinophils (%) (Auto) 3 0-10 % Basophils (%) (Auto) 0 0-10 % Neutrophils # (Auto) 4.9 1.8-7.8 10^3/uL Lymphocytes # (Auto) 2.0 1.0-4.0 10^3/uL Monocytes # (Auto) 0.6 0.0-1.0 10^3/uL Eosinophils # (Auto) 0.3 0.0-0.3 10^3/uL Basophils # (Auto) 0.0 0.0-0.1 10^3/uL Immature Granulocyte # (Auto) 0.1 0.0-0.1 10^3/uL Sodium Level 140 135-145 MMOL/L Potassium Level 3.4 L 3.6-5.0 MMOL/L Chloride Level 101 98-107 MMOL/L Carbon Dioxide Level 25 21-32 MMOL/L Anion Gap 14 5-14 MMOL/L Blood Urea Nitrogen 39 H 7-18 MG/DL Creatinine 2.03 H 0.60-1.30 MG/DL Estimat Glomerular Filtration Rate 24 BUN/Creatinine Ratio 19 Glucose Level 177 H 70-105 MG/DL Calcium Level 9.5 8.5-10.1 MG/DL Troponin I < 0.028 <0.028 NG/ML My Orders Orders - MIKE HAMILTON MD Ed Iv/Invasive Line Start (05/13/21 08:42) Cbc With Automated Diff (05/13/21 08:42) Basic Metabolic Panel (05/13/21 08:42) Troponin I Kj (05/13/21 08:42) Ekg Tracing (05/13/21 08:42) Chest 1 View, Ap/Pa Only (05/13/21 08:42) Acetaminophen Tablet (Tylenol Tablet) (05/13/21 09:30) Medications Given in ED Current Medications Medications Dose Ordered Sig/Apoorva Route Start Time Stop Time Status Last Admin Dose Admin Acetaminophen 1,000 mg ONCE ONCE PO 05/13/21 09:30 05/13/21 09:31 DC 05/13/21 10:25 1,000 MG Vital Signs/I&O 05/13/21 08:38 Pulse 96 Resp 17 B/P (MAP) 133/67 (89) Pulse Ox 96 O2 Delivery Room Air Progress Progress Note : Time: 10:37 Progress Note feels much better after tylenol. cardiac wrokup reassuring inlight of CP going on constantly since last week. Patient given good return precautions, verbalizes understanding. Initial ECG Impression Date: May 13, 2021 Initial ECG Impression Time: 08:33 Initial ECG Rate: 95 Initial ECG Rhythm: Normal Sinus Initial ECG Intervals IN 184 QRS 128 QTc 503 Comment LVH with repol abnormality; no discrete ST elevation or depression Diagnostic Imaging Diagonstic Imaging: Xray Plain Films/CT/US/NM/MRI: chest Comments [facility], [place] NAME: [facility] REC#: [id number] PT STATUS: REG ER : 1945 PHYSICIAN: MIKE HAMILTON MD ADMIT DATE: 05/13/21/ER Draft Date of Exam:05/13/21 CHEST 1 VIEW, AP/PA ONLY Indication: Chest pain. Comparison: 03/13/2021. Discussion: Single portable upright view of the chest was obtained. Mild cardiomegaly is stable. No failure. No consolidation, pleural fluid, or pneumothorax. No osseous abnormality. Impression: 1. Stable cardiomegaly without failure. Dictated on workstation # [id number] Dict: 05/13/21905 Trans: 05/13/21908 [facility] [id number] Interpreted by: DONALD HARPER MD Electronically signed by: Departure Impression Primary Impression: Costochondritis, acute Additional Impression: Chronic kidney disease Qualified Codes: N18.9 - Chronic kidney disease, unspecified Disposition: 01 HOME, SELF-CARE Condition: Stable Departure-Patient Inst. Decision time for Depature: 10:39 Referrals: NO,LOCAL PHYSICIAN (PCP/Family) Primary Care Physician Patient Instructions: Costochondritis Add. Discharge Instructions: Take Tylenol extra strength, 2 tablets every 6 hours as needed for pain. Continue your other daily medications as prescribed. If you get a fever, cough, shortness of breath or any other concerning symptoms please come back to the emergency room for reevaluation. Please make sure you have a follow-up appointment with your primary care doctor. MIKE HAMILTON MD May 13, 2021 08:46
[2021-05-13 09:07] LABS: BASOPHILS % (AUTO) 0 % (0-10); EOSINOPHILS # (AUTO) 0.3 10^3/uL (0.0-0.3); EOSINOPHILS % (AUTO) 3 % (0-10); HEMATOCRIT 31 % (35-52); HEMOGLOBIN 9.5 g/dL (11.5-16.0); LYMPHOCYTES % (AUTO) 25 % (12-44); MEAN CORPUSCULAR HEMOGLOBIN 31 pg (25-34); MEAN CORPUSCULAR HGB CONC 31 g/dL (32-36); MEAN CORPUSCULAR VOLUME 99 fL (80-99); MEAN PLATELET VOLUME 10.3 fL (9.0-12.2); MONOCYTES # (AUTO) 0.6 10^3/uL (0.0-1.0); MONOCYTES % (AUTO) 8 % (0-12); NEUTROPHILS # (AUTO) 4.9 10^3/uL (1.8-7.8); NEUTROPHILS % (AUTO) 63 % (42-75); PLATELET COUNT 235 10^3/uL (130-400); WHITE BLOOD COUNT 7.8 10^3/uL (4.3-11.0)
--- NOTE | 2021-05-13 09:10 | Diagnostic Imaging Report ---
Indication: Chest pain. Comparison: 03/13/2021. Discussion: Single portable upright view of the chest was obtained. Mild cardiomegaly is stable. No failure. No consolidation, pleural fluid, or pneumothorax. No osseous abnormality. Impression: 1. Stable cardiomegaly without failure. Dictated by: Dictated on workstation # [id number]
[2021-05-13 09:18] LABS: CHLORIDE 101 MMOL/L (98-107); POTASSIUM 3.4 MMOL/L (3.6-5.0); SODIUM 140 MMOL/L (135-145)
[2021-05-13 09:19] LABS: CALCIUM 9.5 MG/DL (8.5-10.1)
[2021-05-13 09:20] LABS: GLUCOSE 177 MG/DL (70-105)
[2021-05-13 09:21] LABS: CARBON DIOXIDE 25 MMOL/L (21-32)
[2021-05-13 09:23] LABS: CREATININE SERUM 2.03 MG/DL (0.60-1.30); GFR ESTIMATED 24
[2021-05-13 09:24] LABS: BUN/CREATININE RATIO 19
[2021-05-13] MEDS ORDERED: ACETAMINOPHEN 500 MG TAB (TYLENOL) PO ONE (09:30)
[2021-05-13 11:05] VITALS: BP 132/71
== END 2021-05-13 11:05 | disposition home or self-care (01) ==
LOC: EDUNIT# 08:32 → ER 08:36
DX: M94.0 Chondrocostal junction syndrome [Tietze] (principal); I12.9 Hypertensive chronic kidney disease with stage 1 through stage 4 chronic kidney disease, or unspecified chronic kidney disease; E11.22 Type 2 diabetes mellitus with diabetic chronic kidney disease; N18.30 Chronic kidney disease, stage 3 unspecified; I25.10 Atherosclerotic heart disease of native coronary artery without angina pectoris; E78.00 Pure hypercholesterolemia, unspecified; K21.9 Gastro-esophageal reflux disease without esophagitis; J45.909 Unspecified asthma, uncomplicated; Z79.899 Other long term (current) drug therapy
CPT/HCPCS: 36415; 71045; 80048; 84484; 85025; 93005

== ENCOUNTER → 2021-08-24 | Outpatient (CLI) | payer MEDICARE, MEDICAID ==
[~2021-08-24] MED LIST changes: -MENT5LOZ3 MM; +MENT5LOZ4 MM
--- NOTE | 2021-08-24 09:57 | Diagnostic Imaging Report ---
PROCEDURE: US Renal Bilateral. TECHNIQUE: Multiple real-time grayscale images were obtained over the kidneys in various projections bilaterally. INDICATION: Chronic kidney disease stage IV. FINDINGS: Right kidney measures 9.1 x 3.8 x 3.5 cm and left kidney measures 9.0 x 4.0 x 4.2 cm. There is some cortical thinning present bilaterally. Cortical echogenicity is normal. No calculi are seen. There is no hydronephrosis. The bladder is decompressed. IMPRESSION: Cortical thinning bilaterally. There is no evidence of hydronephrosis. Dictated by: Dictated on workstation # [id number]
== END ==
LOC: RAD 09:00
PROVIDERS: ATTEND Internal Medicine Nephrology
DX: I12.9 Hypertensive chronic kidney disease with stage 1 through stage 4 chronic kidney disease, or unspecified chronic kidney disease (principal); N18.4 Chronic kidney disease, stage 4 (severe); D63.1 Anemia in chronic kidney disease; E21.1 Secondary hyperparathyroidism, not elsewhere classified; E78.01 Familial hypercholesterolemia; E11.9 Type 2 diabetes mellitus without complications
CPT/HCPCS: 76770

== ENCOUNTER → 2021-10-09 | Outpatient (CLI) | payer MEDICARE, MEDICAID ==
--- NOTE | 2021-10-09 16:40 | Diagnostic Imaging Report ---
Indication: Vomiting and abdominal pain. Time of Exam: 4:18 PM There are surgical clips in the gallbladder fossa. The bowel gas pattern appears nonobstructed. No pathologic calcifications are seen. No definite free air is identified. IMPRESSION: No acute abnormality is detected. Dictated by: Dictated on workstation # [id number]
== END ==
LOC: RAD 15:53
PROVIDERS: ATTEND Nurse Practitioner
DX: K59.00 Constipation, unspecified (principal); R11.10 Vomiting, unspecified
CPT/HCPCS: 74018

== ENCOUNTER → 2022-05-13 | Outpatient (CLI) | payer MEDICARE, MEDICAID ==
[~2022-05-13] MED LIST changes: +ALBU8.5H6 IH; -GUAI5LIQ11 PO; +GUAI5LIQ14 PO; -RT-ALBUINH IH
--- NOTE | 2022-05-13 10:49 | Diagnostic Imaging Report ---
INDICATION: Right hip pain. COMPARISON: 10/09/2021. TECHNIQUE: Two radiographs of the right hip dated 05/13/2022. FINDINGS: Mild degenerative changes of the pubic symphysis. No acute fracture or dislocation. No destructive osseous process. Moderate right hip joint space narrowing with associated moderate osteophytosis. The right femoral head maintains its normal shape and contour. Mild background vascular calcifications. IMPRESSION: No acute osseous abnormality with moderate degenerative changes of the right hip present. Dictated by: Dictated on workstation # [id number]
== END ==
LOC: RAD 10:11
PROVIDERS: ATTEND Nurse Practitioner Family
DX: M25.551 Pain in right hip (principal)
CPT/HCPCS: 73502

== ENCOUNTER → 2022-06-10 | Outpatient (CLI) | payer MEDICARE, MEDICAID ==
--- NOTE | 2022-06-10 08:12 | Diagnostic Imaging Report ---
EXAMINATION: Abdomen 2 view HISTORY: ABDOMINAL PAIN COMPARISON: 10/09/2021 FINDINGS: There is a moderate amount of gas and stool throughout the colon. Nonobstructive bowel gas pattern. No radiopaque foreign body. The lung bases are clear. Degenerative changes of the hips and spine. Osseous structures are otherwise intact. IMPRESSION: Moderate stool burden without other acute abnormality in the abdomen. Dictated by: Dictated on workstation # [id number]
--- NOTE | 2022-06-10 08:17 | Diagnostic Imaging Report ---
INDICATION: Abdominal pain PROCEDURE: Ultrasound abdomen complete. TECHNIQUE: Multiple real-time grayscale images were obtained of the abdomen in various projections. FINDINGS: Liver measures 20 cm in length without evidence of focal hepatic abnormality. Gallbladder is absent with dilated common bile duct reaching 1.4 cm which may be based on reservoir effect. Pancreas is partially obscured by overlying bowel without discrete abnormality identified. No abdominal aortic, inferior vena caval or splenic abnormality is seen. Kidneys have normal appearance without evidence of hydronephrosis or mass. No free fluid is seen. IMPRESSION: Hepatomegaly and extrahepatic biliary ductal dilatation which may be related to previous cholecystectomy. Dictated by: Dictated on workstation # [id number]
== END ==
LOC: RAD 07:15
PROVIDERS: ATTEND Family Medicine
DX: K83.8 Other specified diseases of biliary tract (principal); R16.0 Hepatomegaly, not elsewhere classified
CPT/HCPCS: 74018; 76700

== ENCOUNTER → 2022-12-10 | Outpatient (CLI) | payer MEDICARE, MEDICAID ==
[~2022-12-10] MED LIST changes: -LOSA100T57 PO; +LOSA100T58 PO; +MONT-47 PO; -MONT10TA21 PO; -ROSU20TA32 PO; +ROSU20TA73 PO
== END ==
LOC: CARD 13:15
PROVIDERS: ATTEND Family Medicine
DX: R06.01 Orthopnea (principal)
CPT/HCPCS: 93306

== ENCOUNTER 2023-02-28 15:37 | Emergency (ER) | payer MEDICARE, MEDICAID ==
[~2023-02-28] VITALS: Ht 162.3 cm; Wt 81.8 kg
[~2023-02-28 15:37] MED LIST changes: -MECL-149 PO; +MECL-291 PO
[2023-02-28 15:40] VITALS: BP 137/76
[2023-02-28] MEDS ORDERED: ACETAMINOPHEN 500 MG TABLET PO ONE (16:30)
[2023-02-28] MEDS ORDERED: Tetanus/Diphtheria/Pertussis (Acell) ADULT Vaccine 0.5 ML IM ONE (16:30)
--- NOTE | 2023-02-28 16:52 | ED Integumentary General ---
General Chief Complaint: Laceration Stated Complaint: FALL - RT LEG CALF INJ, BLEEDING Nursing Triage Note: FALL AT 1330 AND CAUGHT RIGHT LEG ON A METAL CAN. LACERATION TO THE RIGHT LATERAL CALF. AREA IS RAISED AN HEMATOMA NOTED. LACERATION CLEANED. 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 Source: patient Exam Limitations: no limitations History of Present Illness Date Seen by Provider: Feb 28, 2023 Time Seen by Provider: 16:15 Initial Comments 77-year-old female presents for a laceration to her right anterior leg. She scraped it on a metal stake. She does not know when her last tetanus shot was. She is not on blood thinning medications. No other injuries. She has been ambulatory since the event. All other systems reviewed and negative except documented per HPI. Voice recognition software was used to help create this chart Allergies and Home Medications Allergies Coded Allergies: Iodinated Contrast Media (Unverified Adverse Reaction, Unknown, 02/24/20) NSAIDS (Non-Steroidal Anti-Inflamma (Unverified Adverse Reaction, Unknown, 02/24/20) glimepiride (Unverified Adverse Reaction, Unknown, 02/24/20) Patient Home Medication List Home Medication List Reviewed: Yes Acetaminophen (Acetaminophen) 500 Mg Tablet, 1,000 MG PO BID, (Reported) Entered as Reported by: ZANE CASTELLANO on 03/13/21 1527 Acetaminophen (Tylenol) 325 Mg Capsule, 650 MG PO Q12H PRN for PAIN-MILD (1-4), (Reported) Entered as Reported by: ZANE CASTELLANO on 03/13/21 1527 Albuterol Sulfate (Ventolin Hfa) 1 Puff Puff, 2 PUFF INH Q6H PRN for SHORTNESS OF BREATH, (Reported) Entered as Reported by: INOCENTE CHADWICK on 02/24/20 0936 Budesonide/Formoterol Fumarate (Symbicort 160-4.5 Mcg Inhaler) 10.2 Gm Hfa.aer.ad, 2 PUFF INH BID, (Reported) Entered as Reported by: ROYA LERNER on 04/26/20 1210 Calcium Carbonate (Calcium Carbonate) 500 Mg Tablet, 1,000 MG PO Q4H PRN for HEARTBURN, (Reported) Entered as Reported by: ROYA LERNER on 04/26/20 1210 Chlorpheniramine/Dextromethorp (Chld Robitussin Night Cough Dm) 118 Ml Liquid, 5 ML PO Q6H PRN for COUGH, (Reported) Entered as Reported by: ZANE CASTELLANO on 03/13/21 152 Cholecalciferol (Vitamin D3) (D3-2000) 50 Mcg Capsule, 50 MCG PO DAILY, (Reported) Entered as Reported by: NIOCENTE CHADWICK on 02/24/20 09 Cyclobenzaprine HCl (Cyclobenzaprine HCl) 5 Mg Tablet, 5 MG PO BID, (Reported) Entered as Reported by: ROYA LERNER on 04/26/20 121 Dexlansoprazole (Dexilant) 60 Mg Van., 60 MG PO DAILY, (Reported) Entered as Reported by: ROYA LERNER on 04/26/20 121 Diphenhydramine HCl (Benadryl Allergy) 25 Mg Tablet, 25-50 MG PO Q6H PRN for ALLERGIC REACTIONS, (Reported) Entered as Reported by: ROYA LERNER on 04/26/20 121 Docusate Sodium (Docusate Sodium) 100 Mg Capsule, 100 MG PO BID, (Reported) Entered as Reported by: INOCENTE CHADWICK on 02/24/20 09 Ferrous Sulfate (Iron) 325 Mg Tablet, 325 MG PO BID, (Reported) Entered as Reported by: INOCENTE CHADWICK on 02/24/20 09 Fluticasone Propionate (Flonase Allergy Relief) 9.9 Ml [place].susp, 1 SPRAY NSEACH DAILY, (Reported) Entered as Reported by: ROYA LERNER on 04/26/201209 Furosemide (Furosemide) 20 Mg Tablet, 20 MG PO DAILY, (Reported) Entered as Reported by: ZANE CASTELLANO on 03/13/211526 Glipizide (Glipizide) 10 Mg Tablet, 10 MG PO BID, (Reported) Entered as Reported by: ZANE CASTELLANO on 03/14/21 09 Guaifenesin/Dextromethorphan (Guaifenesin-Dm 100-10 mg/5 ml) 5 Ml Liquid, 10 ML PO Q4H PRN for COUGH, (Reported) Entered as Reported by: ZANE CASTELLANO on 03/13/21 152 Hydrocortisone Acetate (Hydrocortisone Acetate) 28.4 Gm Cream..g., 1 APPLIC TP Q8H PRN for RASH, (Reported) Entered as Reported by: ZANE CASTELLANO on 03/13/21 152 Ipratropium/Albuterol Sulfate (Iprat-Albut 0.5-3(2.5) mg/3 ml) 3 Ml Ampul.neb, 3 ML IH QID, (Reported) Entered as Reported by: ZANE CASTELLANO on 03/13/21 152 Levothyroxine Sodium (Synthroid) 88 Mcg Tablet, 88 MCG PO DAILY, (Reported) Entered as Reported by: SARAH CRUZ on 07/16/18 1302 Loperamide HCl (Imodium A-D) 2 Mg Capsule, 2 MG PO Q6H PRN for DIARRHEA, (Reported) Entered as Reported by: ZANE CASTELLANO on 03/13/211526 Losartan Potassium (Losartan Potassium) 100 Mg Tablet, 100 MG PO DAILY, (Reported) Entered as Reported by: ZANE CASTELLANO on 03/13/21 152 Magnesium Hydroxide (Milk of Magnesia) 400 Mg/5 Ml Oral.susp, 30 ML PO Q12H PRN for CONSTIPATION-7TH LINE, (Reported) Entered as Reported by: ROYA LERNER on 04/26/20 1210 Magnesium Oxide (Magnesium Oxide) 400 Mg Tablet, 400 MG PO DAILY, (Reported) Entered as Reported by: INOCENTE CHADWICK on 02/24/20 0936 Meclizine HCl (Meclizine HCl) 25 Mg Tablet, 25 MG PO Q8H PRN for DIZZINESS, (Reported) Entered as Reported by: ROYA LERNER on 04/26/20 1210 Menthol (Cough Drops) 5 Mg Lozenge, 5 MG MM EVERY 1 HOUR PRN for COUGH, (Reported) Entered as Reported by: ZANE CASTELLANO on 03/13/21 152 Menthol/Zinc Oxide (Gold López Medicated Body Powd) 113 Gm Powder, 1 APPLIC TP DAILY, (Reported) Entered as Reported by: ZANE CASTELLANO on 03/13/21 152 Montelukast Sodium (Montelukast Sodium) 10 Mg Tablet, 10 MG PO HS, (Reported) Entered as Reported by: ZANE CASTELLANO on 03/13/21 152 Multivitamin with Minerals (Multivitamins with Minerals) 1 Each Tablet, 1 EACH PO DAILY, (Reported) Entered as Reported by: ZANE CASTELLANO on 03/13/21 1527 [place]-3/Dha/Epa/Fish Oil (Fish Oil 1,000 mg Softgel) 1 Each Capsule, 1 EACH PO DAILY, (Reported) Entered as Reported by: INOCENTE CHADWICK on 02/24/20 0936 Ondansetron (Ondansetron Odt) 4 Mg Tab.rapdis, 4 MG PO Q8H PRN for NAUSEA/VOMITING-1ST LINE, (Reported) Entered as Reported by: ZANE CASTELLANO on 03/13/21 152 Polyethylene Glycol 3350 (Miralax) 17 Gm Powd.pack, 17 GM PO DAILY PRN for CO NSTIPATION-2ND LINE, (Reported) Entered as Reported by: ROYA LERNER on 04/26/20 1210 Rosuvastatin Calcium (Rosuvastatin Calcium) 20 Mg Tablet, 20 MG PO HS, (Reported) Entered as Reported by: ZANE CASTELLANO on 03/13/21 152 Sucralfate (Carafate) 1 Gm Tablet, 1 GM PO 0730,1600, (Reported) Entered as Reported by: INOCENTE CHADWICK on 02/24/20 0936 Tetrahydrozoline HCl (Tetrahydrozoline HCl) 15 Ml Drops, 2 DROPS OU Q6H PRN for DRY EYES, (Reported) Entered as Reported by: ZANE CASTELLANO on 03/13/21 152 Ticagrelor (Brilinta) 90 Mg Tablet, 90 MG PO BID, (Reported) Entered as Reported by: ZANE CASTELLANO on 03/13/21 152 Review of Systems Review of Systems Constitutional: see HPI Past Iskkccp-Rrsldl-Cjqvyh Hx Patient Social History Tobacco Use?: No Use of E-Cig and/or Vaping dev: No Substance use?: No Alcohol Use?: No Pt feels they are or have been: No Immunizations Up To Date Tetanus Booster (TDap): More than 5yrs Influenza Vaccine Up-to-Date: No; Not Current First/Initial COVID19 Vaccinat: STATES ONE SHOT ONLY Second COVID19 Vaccination Ross: STATES ONE SHOT ONLY Third COVID19 Vaccination Date: STATES ONE SHOT ONLY Seasonal Allergies Seasonal Allergies: No Past Medical History Surgeries: Yes Abdominal, Coronary Stent, Gallbladder Respiratory: Yes (SOB) Asthma Cardiac: Yes Chronic Edema/Swelling, Coronary Artery Disease, Congenital Heart Disease, High Cholesterol, Hypertension 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: 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 Sexually Transmitted Disease: No HIV/AIDS: No Genitourinary: Yes (STAGE 3) Renal Failure Gastrointestinal: Yes Gastroesophageal Reflux, Chronic Constipation, Hiatal Hernia Musculoskeletal: Yes Arthritis Endocrine: Yes Diabetes, Non-Insulin dep HEENT: No Cancer: No Psychosocial: Yes (m.r.) Integumentary: No Blood Disorders: Yes (ANEMIA) Adverse Reaction/Blood Tranf: No (N/A) Family Medical History No Pertinent Family Hx Physical Exam Vital Signs Vital Signs - First Documented 02/28/23 15:40 Temp 36.3 Pulse 72 Resp 16 B/P (MAP) 137/76 (96) Pulse Ox 98 O2 Delivery Room Air Capillary Refill : Less Than 3 Seconds General Appearance: WD/WN, no apparent distress HEENT: normal ENT inspection, pharynx normal Cardiovascular: regular rate, rhythm, no murmur Respiratory: chest non-tender, lungs clear, normal breath sounds, no respiratory distress Extremities: other (Ulceration of the right anterolateral salcedo as documented elsewhere) Skin: other (4 cm laceration right anterior lateral salcedo with some mild venous oozing. Bleeding. Neurovascular and sensory intact) Procedures/Interventions Wound Location: Lower Extremities Other Wound Location Right anterior salcedo Wound Length (cm): 4 Wound's Depth, Shape: sub Q Wound Explored: clean Irrigated w/ Saline (ccs): 500 Betadine Prep?: Yes Anesthesia: Lidocaine w/ Epi Volume Anesthetic (ccs): 5 Suture: Ethlion, Vicryl Suture Size: 4-0 Number of Sutures: 6 Layer Closure?: 2 Number Deep Layer Sutures: 2 Sterile Dressing Applied?: Yes Progress/Results/Core Measures Results/Orders My Orders Orders - GIRISH DUTTA DO Acetaminophen Tablet (Acetaminophen Ta (02/28/23 16:30) Dipht/Pertuss(Acell)/Tet Adult (Dipht/Pe (02/28/23 16:30) Medications Given in ED Current Medications Medications Dose Ordered Sig/Apoorva Route Start Time Stop Time Status Last Admin Dose Admin Acetaminophen 1,000 mg ONCE ONCE PO 02/28/23 16:30 02/28/23 16:31 DC 02/28/23 16:35 1,000 MG Diphtheria/ Tetanus/Acell Pertussis 0.5 ml ONCE ONCE IM 02/28/23 16:30 02/28/23 16:31 DC 02/28/23 17:05 0.5 ML Vital Signs/I&O 02/28/23 15:40 Temp 36.3 Pulse 72 Resp 16 B/P (MAP) 137/76 (96) Pulse Ox 98 O2 Delivery Room Air Blood Pressure Mean: 96 Departure Communication (Admissions) Injury happened at 130 this afternoon causing significant hematoma underlying by the time of evaluation. Was quite difficult to get the wound to come together nicely due to the underlying hematoma and thin skin. I placed horizontal mattresses after subdermal stitches and there is still about a 0.5 cm gap between the skin flaps that I cannot close. The wound is now hemostatic however. Dressing placed, wound care discussed. Discussed removing stitches in 10 to 14 days. Discharged in stable condition. Impression Primary Impression: Laceration of left leg Qualified Codes: S81.812A - Laceration without foreign body, left lower leg, initial encounter Disposition: 01 HOME, SELF-CARE Condition: Stable Departure-Patient Inst. Referrals: SHUN HANSON MD (PCP) Primary Care Physician NO,LOCAL PHYSICIAN (Family) Primary Care Physician Patient Instructions: Laceration Repair With Stitches ED Add. Discharge Instructions: Have the stitches removed in 14 days. Keep the dressing on and change it as needed if it becomes soiled. Get off with there is no longer bleeding. She may shower as normal but do not submerge it in water like lakes pools or hot tubs. Return to the emergency department for any severe concerns. All discharge instructions reviewed with patient and/or family. Voiced understanding. GIRISH DUTTA DO Feb 28, 2023 16:52
== END 2023-02-28 17:07 | disposition home or self-care (01) ==
LOC: EDUNIT# 15:37 → ER 15:41
DX: S81.811A Laceration without foreign body, right lower leg, initial encounter (principal); Z23 Encounter for immunization; Z88.6 Allergy status to analgesic agent; W26.8XXA Contact with other sharp object(s), not elsewhere classified, initial encounter; W19.XXXA Unspecified fall, initial encounter
CPT/HCPCS: 12032; 90715

== ENCOUNTER → 2023-03-13 | Outpatient (CLI) | payer MEDICARE, MEDICAID | LOC: WOUNDCARE 08:58 | PROVIDERS: ATTEND Family Medicine | DX: S81.811A Laceration without foreign body, right lower leg, initial encounter (principal); I96 Gangrene, not elsewhere classified; I89.0 Lymphedema, not elsewhere classified; L03.115 Cellulitis of right lower limb; E11.9 Type 2 diabetes mellitus without complications; R29.6 Repeated falls; E66.01 Morbid (severe) obesity due to excess calories; F71 Moderate intellectual disabilities; D46.4 Refractory anemia, unspecified; N18.30 Chronic kidney disease, stage 3 unspecified; Z68.34 Body mass index [BMI] 34.0-34.9, adult | CPT/HCPCS: 10140; A6260; G0463 ==

== ENCOUNTER → 2023-03-14 | Outpatient (CLI) | payer MEDICARE, MEDICAID ==
[~2023-03-14] MED LIST changes: +AMLO2.5T4 PO; +CLOP75TA28 PO; +LOSA25TA41 PO; +PANT20TA18 PO; +[UNRECOGNIZED DRUG - CODE] PO
--- NOTE | 2023-03-14 17:17 | Diagnostic Imaging Report ---
INDICATION: Nonhealing ulcer right leg. TECHNIQUE: Duplex ultrasound of the arterial system of the right leg was done with grayscale, spectral waveform, and color Doppler analysis. FINDINGS: The patient has a triphasic waveform from the common femoral artery through the mid superficial femoral artery. At the adductor canal, the waveform becomes monophasic but velocity transition is maintained. The posterior tibial and dorsalis pedis arteries are both patent. IMPRESSION: Mild narrowing of the distal right superficial femoral artery. There is no occlusion or hemodynamically significant stenosis seen. Dictated by: Dictated on workstation # [id number]
== END ==
LOC: RAD 13:30
PROVIDERS: ATTEND Family Medicine
DX: I70.232 Atherosclerosis of native arteries of right leg with ulceration of calf (principal)
CPT/HCPCS: 93926

== ENCOUNTER 2023-03-18 12:39 | Inpatient (IN) | payer MEDICARE, MEDICAID ==
[~2023-03-18] VITALS: Ht 160 cm; Wt 88.0 kg
[~2023-03-18 12:39] MED LIST changes: -AMLO2.5T4 PO; -CLOP75TA28 PO; -LEVO-55 PO; -LOSA25TA41 PO; -PANT20TA18 PO; -[UNRECOGNIZED DRUG - CODE] PO
--- NOTE | 2023-03-18 12:47 | ED Integumentary General ---
General Chief Complaint: Skin/Wound Problems Stated Complaint: HOLE IN LEG INFECTED History of Present Illness Date Seen by Provider: Mar 18, 2023 Time Seen by Provider: 12:47 Initial Comments 77-year-old female sent in by wound care for evaluation of a wound that is approximately 3 weeks old. Patient suffered a leg injury approximately 3 weeks ago which was repaired and dehisced. Patient has been on both Keflex for wound infection along with doxycycline recently. Patient and caregivers report over t he last 24 to 36 hours is gotten a lot worse. Patient was seen at wound care today when she attempted to debride it but felt that it would need further debridement and probable surgical did remain. She is concerned about Pseudomonas infection, sent her to the ER to have a surgical evaluation and possible admission for IV antibiotics. Allergies and Home Medications Allergies Coded Allergies: Iodinated Contrast Media (Unverified Adverse Reaction, Unknown, 02/24/20) NSAIDS (Non-Steroidal Anti-Inflamma (Unverified Adverse Reaction, Unknown, 02/24/20) glimepiride (Unverified Adverse Reaction, Unknown, 02/24/20) Patient Home Medication List Home Medication List Reviewed: Yes Acetaminophen (Acetaminophen) 500 Mg Tablet, 1,000 MG PO BID, (Reported) Entered as Reported by: ZANE CASTELLANO on 03/13/21 1527 Acetaminophen (Tylenol) 325 Mg Capsule, 650 MG PO Q12H PRN for PAIN-MILD (1-4), (Reported) Entered as Reported by: ZANE CASTELLANO on 03/13/21 1527 Albuterol Sulfate (Ventolin Hfa) 1 Puff Puff, 2 PUFF INH Q6H PRN for SHORTNESS OF BREATH, (Reported) Entered as Reported by: INOCENTE CAHDWICK on 02/24/20 0936 Budesonide/Formoterol Fumarate (Symbicort 160-4.5 Mcg Inhaler) 10.2 Gm Hfa.aer.ad, 2 PUFF INH BID, (Reported) Entered as Reported by: ROYA LERNER on 04/26/20 1210 Calcium Carbonate (Calcium Carbonate) 500 Mg Tablet, 1,000 MG PO Q4H PRN for HEARTBURN, (Reported) Entered as Reported by: ROYA LERNER on 04/26/20 1210 Chlorpheniramine/Dextromethorp (Chld Robitussin Night Cough Dm) 118 Ml Liquid, 5 ML PO Q6H PRN for COUGH, (Reported) Entered as Reported by: ZANE CASTELLANO on 03/13/21 152 Cholecalciferol (Vitamin D3) (D3-2000) 50 Mcg Capsule, 50 MCG PO DAILY, (Reported) Entered as Reported by: INOCENTE CHADWICK on 02/24/20 09 Cyclobenzaprine HCl (Cyclobenzaprine HCl) 5 Mg Tablet, 5 MG PO BID, (Reported) Entered as Reported by: ROYA LERNER on 04/26/20 121 Dexlansoprazole (Dexilant) 60 Mg Van.bp, 60 MG PO DAILY, (Reported) Entered as Reported by: ROYA LERNER on 04/26/20 121 Diphenhydramine HCl (Benadryl Allergy) 25 Mg Tablet, 25-50 MG PO Q6H PRN for ALLERGIC REACTIONS, (Reported) Entered as Reported by: ROYA LERNER on 04/26/20 121 Docusate Sodium (Docusate Sodium) 100 Mg Capsule, 100 MG PO BID, (Reported) Entered as Reported by: INOCENTE CHADWICK on 02/24/20935 Ferrous Sulfate (Iron) 325 Mg Tablet, 325 MG PO BID, (Reported) Entered as Reported by: INOCENTE CHADWICK on 02/24/20 09 Fluticasone Propionate (Flonase Allergy Relief) 9.9 Ml [place].susp, 1 SPRAY NSEACH DAILY, (Reported) Entered as Reported by: ROYA LERNER on 04/26/20 121 Furosemide (Furosemide) 20 Mg Tablet, 20 MG PO DAILY, (Reported) Entered as Reported by: ZANE CASTELLANO on 03/13/21 152 Glipizide (Glipizide) 10 Mg Tablet, 10 MG PO BID, (Reported) Entered as Reported by: ZANE CASTELLANO on 03/14/21 09 Guaifenesin/Dextromethorphan (Guaifenesin-Dm 100-10 mg/5 ml) 5 Ml Liquid, 10 ML PO Q4H PRN for COUGH, (Reported) Entered as Reported by: ZANE CASTELLANO on 03/13/21 152 Hydrocortisone Acetate (Hydrocortisone Acetate) 28.4 Gm Cream..g., 1 APPLIC TP Q8H PRN for RASH, (Reported) Entered as Reported by: ZANE CASTELLANO on 03/13/21 1527 Ipratropium/Albuterol Sulfate (Iprat-Albut 0.5-3(2.5) mg/3 ml) 3 Ml Ampul.neb, 3 ML IH QID, (Reported) Entered as Reported by: ZANE CASTELLANO on 03/13/21 152 Levothyroxine Sodium (Synthroid) 88 Mcg Tablet, 88 MCG PO DAILY, (Reported) Entered as Reported by: SARAH CRUZ on 07/16/18 1302 Loperamide HCl (Imodium A-D) 2 Mg Capsule, 2 MG PO Q6H PRN for DIARRHEA, (Reported) Entered as Reported by: ZANE CASTELLANO on 03/13/21 152 Losartan Potassium (Losartan Potassium) 100 Mg Tablet, 100 MG PO DAILY, (Reported) Entered as Reported by: ZANE CASTELLANO on 03/13/21 152 Magnesium Hydroxide (Milk of Magnesia) 400 Mg/5 Ml [place].susp, 30 ML PO Q12H PRN for CONSTIPATION-7TH LINE, (Reported) Entered as Reported by: ROYA LERNER on 04/26/20 1210 Magnesium Oxide (Magnesium Oxide) 400 Mg Tablet, 400 MG PO DAILY, (Reported) Entered as Reported by: INOCENTE CHADWICK on 02/24/20 0936 Meclizine HCl (Meclizine HCl) 25 Mg Tablet, 25 MG PO Q8H PRN for DIZZINESS, (Reported) Entered as Reported by: ROYA LERNER on 04/26/20 1210 Menthol (Cough Drops) 5 Mg Lozenge, 5 MG MM EVERY 1 HOUR PRN for COUGH, (Reported) Entered as Reported by: ZANE CASTELLANO on 03/13/21 152 Menthol/Zinc Oxide (Gold López Medicated Body Powd) 113 Gm Powder, 1 APPLIC TP DAILY, (Reported) Entered as Reported by: ZANE CASTELLANO on 03/13/21 152 Montelukast Sodium (Montelukast Sodium) 10 Mg Tablet, 10 MG PO HS, (Reported) Entered as Reported by: ZANE CASTELLANO on 03/13/21 152 Multivitamin with Minerals (Multivitamins with Minerals) 1 Each Tablet, 1 EACH PO DAILY, (Reported) Entered as Reported by: ZANE CASTELLANO on 03/13/21 1527 [place]-3/Dha/Epa/Fish Oil (Fish Oil 1,000 mg Softgel) 1 Each Capsule, 1 EACH PO DAILY, (Reported) Entered as Reported by: INOCENTE CHADWICK on 02/24/20 0936 Ondansetron (Ondansetron Odt) 4 Mg Tab.rapdis, 4 MG PO Q8H PRN for NAUSEA/VOMITING-1ST LINE, (Reported) Entered as Reported by: ZANE CASTELLANO on 03/13/21 1527 Polyethylene Glycol 3350 (Miralax) 17 Gm Powd.pack, 17 GM PO DAILY PRN for CONSTIPATION-2ND LINE, (Reported) Entered as Reported by: ROYA ELRNER on 04/26/20 1210 Rosuvastatin Calcium (Rosuvastatin Calcium) 20 Mg Tablet, 20 MG PO HS, (Reported) Entered as Reported by: ZANE CASTELLANO on 03/13/21 152 Sucralfate (Carafate) 1 Gm Tablet, 1 GM PO 0730,1600, (Reported) Entered as Reported by: INOCENTE CHADWICK on 02/24/20 0936 Tetrahydrozoline HCl (Tetrahydrozoline HCl) 15 Ml Drops, 2 DROPS OU Q6H PRN for DRY EYES, (Reported) Entered as Reported by: ZANE CASTELLANO on 03/13/21 152 Ticagrelor (Brilinta) 90 Mg Tablet, 90 MG PO BID, (Reported) Entered as Reported by: ZANE CASTELLANO on 03/13/21 152 Review of Systems Review of Systems Constitutional: see HPI EENTM: no symptoms reported Respiratory: no symptoms reported Cardiovascular: no symptoms reported Gastrointestinal: no symptoms reported Genitourinary: no symptoms reported Musculoskeletal: see HPI Skin: see HPI Psychiatric/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: No Symptoms Reported Endocrine: No Symptoms Reported Past Ysmxffp-Iyrpbx-Cecxxp Hx Immunizations Up To Date Tetanus Booster (TDap): More than 5yrs First/Initial COVID19 Vaccinat: STATES ONE SHOT ONLY Second COVID19 Vaccination Ross: STATES ONE SHOT ONLY Third COVID19 Vaccination Date: STATES ONE SHOT ONLY Seasonal Allergies Seasonal Allergies: No Past Medical History Surgeries: Yes Abdominal, Coronary Stent, Gallbladder Respiratory: Yes (SOB) Asthma Cardiac: Yes Chronic Edema/Swelling, Coronary Artery Disease, Congenital Heart Disease, High Cholesterol, Hypertension 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 Sexually Transmitted Disease: No HIV/AIDS: No Genitourinary: Yes (STAGE 3) Renal Failure Gastrointestinal: Yes Gastroesophageal Reflux, Chronic Constipation, Hiatal Hernia Musculoskeletal: Yes Arthritis Endocrine: Yes Diabetes, Non-Insulin dep HEENT: No Cancer: No Psychosocial: Yes (m.r.) Integumentary: No Blood Disorders: Yes (ANEMIA) Adverse Reaction/Blood Tranf: No (N/A) Family Medical History No Pertinent Family Hx Physical Exam Vital Signs Vital Signs - First Documented 03/18/23 12:48 Temp 37.7 Pulse 98 Resp 20 B/P (MAP) 138/64 (88) Pulse Ox 91 O2 Delivery Room Air Capillary Refill : General Appearance: WD/WN, no apparent distress Cardiovascular: normal peripheral pulses, regular rate, rhythm Gastrointestinal: non tender, soft Skin Problem Location: lower extremities Skin Problem Character: other (2.5 cm x 2 cm right lateral calf wound with surrounding erythema with some small necrotic tissue within the wound bed) Procedures/Interventions Suture Size: 4-0 Progress/Results/Core Measures Results/Orders Lab Results Laboratory Tests Test 03/18/23 12:56 Range/Units White Blood Count 13.3 H 4.3-11.0 10^3/uL Red Blood Count 2.66 L 3.80-5.11 10^6/uL Hemoglobin 7.9 L 11.5-16.0 g/dL Hematocrit 26 L 35-52 % Mean Corpuscular Volume 97 80-99 fL Mean Corpuscular Hemoglobin 30 25-34 pg Mean Corpuscular Hemoglobin Concent 31 L 32-36 g/dL Red Cell Distribution Width 14.1 10.0-14.5 % Platelet Count 314 130-400 10^3/uL Mean Platelet Volume 9.2 9.0-12.2 fL Immature Granulocyte % (Auto) 1 % Neutrophils (%) (Auto) 73 42-75 % Lymphocytes (%) (Auto) 18 12-44 % Monocytes (%) (Auto) 7 0-12 % Eosinophils (%) (Auto) 1 0-10 % Basophils (%) (Auto) 0 0-10 % Neutrophils # (Auto) 9.7 H 1.8-7.8 10^3/uL Lymphocytes # (Auto) 2.4 1.0-4.0 10^3/uL Monocytes # (Auto) 0.9 0.0-1.0 10^3/uL Eosinophils # (Auto) 0.2 0.0-0.3 10^3/uL Basophils # (Auto) 0.0 0.0-0.1 10^3/uL Immature Granulocyte # (Auto) 0.1 0.0-0.1 10^3/uL Sodium Level 138 135-145 MMOL/L Potassium Level 3.7 3.6-5.0 MMOL/L Chloride Level 100 98-107 MMOL/L Carbon Dioxide Level 25 21-32 MMOL/L Anion Gap 13 5-14 MMOL/L Blood Urea Nitrogen 52 H 7-18 MG/DL Creatinine 2.04 H 0.60-1.30 MG/DL Estimat Glomerular Filtration Rate 25 BUN/Creatinine Ratio 25 Glucose Level 159 H 70-105 MG/DL Calcium Level 9.7 8.5-10.1 MG/DL Corrected Calcium 9.8 8.5-10.1 MG/DL Total Bilirubin 0.2 0.1-1.0 MG/DL Aspartate Amino Transf (AST/SGOT) 13 5-34 U/L Alanine Aminotransferase (ALT/SGPT) 11 0-55 U/L Alkaline Phosphatase 87 40-136 U/L Total Protein 8.4 H 6.4-8.2 GM/DL Albumin 3.9 3.2-4.5 GM/DL My Orders Orders - JULIO C LÓPEZ DO Cbc And Automated Diff (03/18/23 12:50) Comprehensive Metabolic Panel (03/18/23 12:50) Wound Culture (03/18/23 12:50) Ed Iv/Invasive Line Start (03/18/23 13:28) Ns Iv 500 Ml (Ns Iv 500 Ml) (03/18/23 13:30) Piperacillin/Tazobactam (Piperacillin/Ta (03/18/23 13:45) Vancomycin Injection (Vancomycin Injecti (03/18/23 14:00) Ed Admission (Communication) (03/18/23 14:03) Medications Given in ED Current Medications Medications Dose Ordered Sig/Apoorva Route Start Time Stop Time Status Last Admin Dose Admin Piperacillin Sod/ Tazobactam Sod 4.5 gm/Sodium Chloride 100 ml @ 200 mls/hr ONCE ONCE IV 03/18/23 13:45 03/18/23 14:14 03/18/23 14:02 200 MLS/HR Sodium Chloride 500 ml @ 0 mls/hr Q0M ONCE IV 03/18/23 13:30 03/18/23 13:34 DC 03/18/23 14:02 0 MLS/HR Vital Signs/I&O 03/18/23 12:48 Temp 37.7 Pulse 98 Resp 20 B/P (MAP) 138/64 (88) Pulse Ox 91 O2 Delivery Room Air Progress Progress Note : Progress Note Patient's diagnostic studies were ordered reviewed and interpreted by me. Patient does have elevated white count of 13.3 and some mild increase in her baseline creatinine per review of wound care notes. On 03/14/2023 her GFR was 35 with her creatinine being at 1.5. Her creatinine today is in the twos. She is likely mildly dehydrated. Patient has been on both Keflex and Doxy with worsening of her cellulitis over the last couple days. Patient would likely benefit from IV antibiotics with concern for possible Pseudomonas. Patient was given Zosyn and Vanco in the ER. Patient to be admitted to Dr. Paredes for further IV antibiotics and management. I did call and also discussed with Dr. Juarez who is on-call for surgery for possible surgical debridement. Patient was stable upon transfer to the floor. Departure Impression Primary Impression: Infected wound Additional Impressions: Type 2 diabetes mellitus Qualified Codes: E11.69 - Type 2 diabetes mellitus with other specified complication Chronic kidney disease Qualified Codes: N18.9 - Chronic kidney disease, unspecified Failure of outpatient treatment Disposition: ADMITTED INPATIENT Condition: Stable Departure-Patient Inst. Referrals: SHUN HANSON MD (PCP/Family) Primary Care Physician JULIO C LÓPEZ DO Mar 18, 2023 12:47
[2023-03-18 13:03] LABS: BASOPHILS % (AUTO) 0 % (0-10); EOSINOPHILS # (AUTO) 0.2 10^3/uL (0.0-0.3); EOSINOPHILS % (AUTO) 1 % (0-10); HEMATOCRIT 26 % (35-52); HEMOGLOBIN 7.9 g/dL (11.5-16.0); LYMPHOCYTES # (AUTO) 2.4 10^3/uL (1.0-4.0); LYMPHOCYTES % (AUTO) 18 % (12-44); MEAN CORPUSCULAR HEMOGLOBIN 30 pg (25-34); MEAN CORPUSCULAR HGB CONC 31 g/dL (32-36); MEAN CORPUSCULAR VOLUME 97 fL (80-99); MEAN PLATELET VOLUME 9.2 fL (9.0-12.2); MONOCYTES # (AUTO) 0.9 10^3/uL (0.0-1.0); MONOCYTES % (AUTO) 7 % (0-12); NEUTROPHILS # (AUTO) 9.7 10^3/uL (1.8-7.8); NEUTROPHILS % (AUTO) 73 % (42-75); PLATELET COUNT 314 10^3/uL (130-400); WHITE BLOOD COUNT 13.3 10^3/uL (4.3-11.0)
[2023-03-18 13:14] LABS: ALBUMIN 3.9 GM/DL (3.2-4.5); POTASSIUM 3.7 MMOL/L (3.6-5.0)
[2023-03-18 13:16] LABS: CALCIUM 9.7 MG/DL (8.5-10.1)
[2023-03-18 13:17] LABS: TOTAL PROTEIN 8.4 GM/DL (6.4-8.2)
[2023-03-18 13:19] LABS: BILIRUBIN,TOTAL 0.2 MG/DL (0.1-1.0)
[2023-03-18 13:20] LABS: CREATININE SERUM 2.04 MG/DL (0.60-1.30)
[2023-03-18] MEDS ORDERED: NS IV 500 ML 500 ML IV ONE (13:30)
[2023-03-18] MEDS ORDERED: PIPERACILLIN/Tazobactam 4.5 GM in NS (IVPB) 100 ML 100 ML IV ONE (13:45)
[2023-03-18] MEDS ORDERED: VANCOMYCIN INJECTION 1,000 MG in NS (IVPB) 250 ML 250 ML IV ONE (14:00)
--- NOTE | 2023-03-18 14:38 | Consultation - Surgery ---
NICHOLASJASMYN Fu 03/18/23 1438: History of Present Illness History of Present Illness Patient Consulted On(nayla/time) 03/18/23 14:33 Date Seen by Provider: Mar 18, 2023 Time Seen by Provider: 21:00 Reason for Visit: wound on right lower anterior leg History of Present Illness Christiana Quezada presented with staff from her halfway for concerns of infection in a right lower anterior leg wound. The wound has been present for several weeks and the facility has been packing and dressing it. There is surrounding erythema and skin tightening. There is no evidence of necrosis. IV antibiotics have been started. Allergies and Home Medications Allergies Coded Allergies: Iodinated Contrast Media (Unverified Adverse Reaction, Unknown, 02/24/20) NSAIDS (Non-Steroidal Anti-Inflamma (Unverified Adverse Reaction, Unknown, 02/24/20) glimepiride (Unverified Adverse Reaction, Unknown, 02/24/20) Patient Home Medication List Home Medication List Reviewed: No Acetaminophen (Acetaminophen) 500 Mg Tablet, 1,000 MG PO BID, (Reported) Entered as Reported by: ZANE CASTELLANO on 03/13/21 1527 Acetaminophen (Tylenol) 325 Mg Capsule, 650 MG PO Q12H PRN for PAIN-MILD (1-4), (Reported) Entered as Reported by: ZANE CASTELLANO on 03/13/21 1527 Albuterol Sulfate (Ventolin Hfa) 1 Puff Puff, 2 PUFF INH Q6H PRN for SHORTNESS OF BREATH, (Reported) Entered as Reported by: INOCENTE CHADWICK on 02/24/20 0936 Budesonide/Formoterol Fumarate (Symbicort 160-4.5 Mcg Inhaler) 10.2 Gm Hfa.aer.ad, 2 PUFF INH BID, (Reported) Entered as Reported by: ROYA LERNER on 04/26/20 1210 Calcium Carbonate (Calcium Carbonate) 500 Mg Tablet, 1,000 MG PO Q4H PRN for HEARTBURN, (Reported) Entered as Reported by: ROYA LERNER on 04/26/20 1210 Chlorpheniramine/Dextromethorp (Chld Robitussin Night Cough Dm) 118 Ml Liquid, 5 ML PO Q6H PRN for COUGH, (Reported) Entered as Reported by: ZANE CASTELLANO on 03/13/21 1527 Cholecalciferol (Vitamin D3) (D3-2000) 50 Mcg Capsule, 50 MCG PO DAILY, (R eported) Entered as Reported by: INOCENTE CHADWICK on 02/24/20 09 Cyclobenzaprine HCl (Cyclobenzaprine HCl) 5 Mg Tablet, 5 MG PO BID, (Reported) Entered as Reported by: ROYA LERNER on 04/26/20 121 Dexlansoprazole (Dexilant) 60 Mg Van., 60 MG PO DAILY, (Reported) Entered as Reported by: ROYA LERNER on 04/26/201209 Diphenhydramine HCl (Benadryl Allergy) 25 Mg Tablet, 25-50 MG PO Q6H PRN for ALLERGIC REACTIONS, (Reported) Entered as Reported by: ROYA LERNER on 04/26/201209 Docusate Sodium (Docusate Sodium) 100 Mg Capsule, 100 MG PO BID, (Reported) Entered as Reported by: INOCENTE CHADWICK on 02/24/20935 Ferrous Sulfate (Iron) 325 Mg Tablet, 325 MG PO BID, (Reported) Entered as Reported by: INOCENTE CHADWICK on 02/24/20935 Fluticasone Propionate (Flonase Allergy Relief) 9.9 Ml Hostetter.susp, 1 SPRAY NSEA CH DAILY, (Reported) Entered as Reported by: ROYA LERNER on 04/26/201209 Furosemide (Furosemide) 20 Mg Tablet, 20 MG PO DAILY, (Reported) Entered as Reported by: ZANE CASTELLANO on 03/13/211526 Glipizide (Glipizide) 10 Mg Tablet, 10 MG PO BID, (Reported) Entered as Reported by: ZANE CASTELLANO on 03/14/21 09 Guaifenesin/Dextromethorphan (Guaifenesin-Dm 100-10 mg/5 ml) 5 Ml Liquid, 10 ML PO Q4H PRN for COUGH, (Reported) Entered as Reported by: ZANE CASTELLANO on 03/13/211526 Hydrocortisone Acetate (Hydrocortisone Acetate) 28.4 Gm Cream..g., 1 APPLIC TP Q8H PRN for RASH, (Reported) Entered as Reported by: ZANE CASTELLANO on 03/13/21 152 Ipratropium/Albuterol Sulfate (Iprat-Albut 0.5-3(2.5) mg/3 ml) 3 Ml Ampul.neb, 3 ML IH QID, (Reported) Entered as Reported by: ZANE CASTELLANO on 03/13/21 152 Levothyroxine Sodium (Synthroid) 88 Mcg Tablet, 88 MCG PO DAILY, (Reported) Entered as Reported by: SARAH CRUZ on 07/16/18 1302 Loperamide HCl (Imodium A-D) 2 Mg Capsule, 2 MG PO Q6H PRN for DIARRHEA, (Reported) Entered as Reported by: ZANE CASTELLANO on 03/13/21 152 Losartan Potassium (Losartan Potassium) 100 Mg Tablet, 100 MG PO DAILY, (Reported) Entered as Reported by: ZANE CASTELLANO on 03/13/21 152 Magnesium Hydroxide (Milk of Magnesia) 400 Mg/5 Ml Oral.susp, 30 ML PO Q12H PRN for CONSTIPATION-7TH LINE, (Reported) Entered as Reported by: ROYA LERNER on 04/26/20 1210 Magnesium Oxide (Magnesium Oxide) 400 Mg Tablet, 400 MG PO DAILY, (Reported) Entered as Reported by: INOCENTE CHADWICK on 02/24/20 0936 Meclizine HCl (Meclizine HCl) 25 Mg Tablet, 25 MG PO Q8H PRN for DIZZINESS, (Reported) Entered as Reported by: ROYA LERNER on 04/26/20 1210 Menthol (Cough Drops) 5 Mg Lozenge, 5 MG MM EVERY 1 HOUR PRN for COUGH, (Reported) Entered as Reported by: ZANE CASTELLANO on 03/13/21 152 Menthol/Zinc Oxide (Gold López Medicated Body Powd) 113 Gm Powder, 1 APPLIC TP DAILY, (Reported) Entered as Reported by: ZANE CASTELLANO on 03/13/21 152 Montelukast Sodium (Montelukast Sodium) 10 Mg Tablet, 10 MG PO HS, (Reported) Entered as Reported by: ZANE CASTELLANO on 03/13/21 152 Multivitamin with Minerals (Multivitamins with Minerals) 1 Each Tablet, 1 EACH PO DAILY, (Reported) Entered as Reported by: ZANE CASTELLANO on 03/13/21 152 [place]-3/Dha/Epa/Fish Oil (Fish Oil 1,000 mg Softgel) 1 Each Capsule, 1 EACH PO DAILY, (Reported) Entered as Reported by: INOCENTE CHADWICK on 02/24/20 0936 Ondansetron (Ondansetron Odt) 4 Mg Tab.rapdis, 4 MG PO Q8H PRN for NAUSEA/VO MITING-1ST LINE, (Reported) Entered as Reported by: ZANE CASTELLANO on 03/13/21 1527 Polyethylene Glycol 3350 (Miralax) 17 Gm Powd.pack, 17 GM PO DAILY PRN for CONSTIPATION-2ND LINE, (Reported) Entered as Reported by: ROYA LERNER on 04/26/20 1210 Rosuvastatin Calcium (Rosuvastatin Calcium) 20 Mg Tablet, 20 MG PO HS, (Reported) Entered as Reported by: ZANE CASTELLANO on 03/13/21 1527 Sucralfate (Carafate) 1 Gm Tablet, 1 GM PO 0730,1600, (Reported) Entered as Reported by: INOCENTE CHADWICK on 02/24/20 0936 Tetrahydrozoline HCl (Tetrahydrozoline HCl) 15 Ml Drops, 2 DROPS OU Q6H PRN for DRY EYES, (Reported) Entered as Reported by: ZANE CASTELLANO on 03/13/21 1527 Ticagrelor (Brilinta) 90 Mg Tablet, 90 MG PO BID, (Reported) Entered as Reported by: ZANE CASTELLANO on 03/13/21 152 Past Hrfceqw-Iikola-Oesgyn Hx Patient Social History Smoking Status: Never a Smoker Alcohol Use?: No Immunizations Up To Date Date of Pneumonia Vaccine: Mar 30, 2013 Date of Influenza Vaccine: Mar 02, 2018 Surgeries History of Surgeries: Yes Surgeries: Abdominal, Coronary Stent, Gallbladder Respiratory History of Respiratory Disorde: Yes (SOB) Respiratory Disorders: Asthma Cardiovascular History of Cardiac Disorders: Yes Cardiac Disorders: Chronic Edema/Swelling, Coronary Artery Disease, Congenital Heart Disease, High Cholesterol, Hypertension 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 History of 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 Disord: No Reproductive System Sexually Transmitted Disease: No HIV/AIDS: No ONION TIER History: Menopausal Genitourinary History of Genitourinary Disor: Yes (STAGE 3) Genitourinary Disorders: Renal Failure Gastrointestinal History of Gastrointestinal Di: Yes Gastrointestinal Disorders: Gastroesophageal Reflux, Chronic Constipation, Hiatal Hernia Musculoskeletal History of Musculoskeletal Dis: Yes Musculoskeletal Disorders: Arthritis Endocrine History of Endocrine Disorders: Yes Endocrine Disorders: Diabetes, Non-Insulin dep HEENT History of HEENT Disorders: No Cancer History of Cancer: No Psychosocial History of Psychiatric Problem: Yes (m.r.) Integumentary History of Skin or Integumenta: No Blood Transfusions History of Blood Disorders: Yes (ANEMIA) Adverse Reaction to a Blood Tr: No (N/A) Family Medical History Significant Family History: No Pertinent Family Hx Physical Exam-General Problems Physical Exam Vital Signs Vital Signs - First Documented 03/18/23 12:48 Temp 37.7 Pulse 98 Resp 20 B/P (MAP) 138/64 (88) Pulse Ox 91 O2 Delivery Room Air Capillary Refill : Less Than 3 Seconds General Appearance: no apparent distress Eyes: Bilateral Eye PERRL HEENT: PERRL/EOMI Neck: non-tender, supple Respiratory: normal breath sounds, no accessory muscle use Cardiovascular: regular rate, rhythm, no edema Gastrointestinal: non tender, soft Data Review Labs Laboratory Tests 03/18/23 12:56: White Blood Count 13.3H, Red Blood Count 2.66L, Hemoglobin 7.9L, Hematocrit 26L, Mean Corpuscular Volume 97, Mean Corpuscular Hemoglobin 30, Mean Corpuscular Hemoglobin Concent 31L, Red Cell Distribution Width 14.1, Platelet Count 314, Mean Platelet Volume 9.2, Immature Granulocyte % (Auto) 1, Neutrophils (%) (Auto) 73, Lymphocytes (%) (Auto) 18, Monocytes (%) (Auto) 7, Eosinophils (%) (Auto) 1, Basophils (%) (Auto) 0, Neutrophils # (Auto) 9.7H, Lymphocytes # (Auto) 2.4, Monocytes # (Auto) 0.9, Eosinophils # (Auto) 0.2, Basophils # (Auto) 0.0, Immature Granulocyte # (Auto) 0.1, Sodium Level 138, Potassium Level 3.7, Chloride Level 100, Carbon Dioxide Level 25, Anion Gap 13, Blood Urea Nitrogen 52H, Creatinine 2.04H, Estimat Glomerular Filtration Rate 25, BUN/Creatinine Ratio 25, Glucose Level 159H, Calcium Level 9.7, Corrected Calcium 9.8, Total Bilirubin 0.2, Aspartate Amino Transf (AST/SGOT) 13, Alanine Aminotransferase (ALT/SGPT) 11, Alkaline Phosphatase 87, Total Protein 8.4H, Albumin 3.9 Assessment/Plan Assessment/Plan Admission Diagonsis right lower anterior leg wound Assessment/Plan Admit for IV antibiotics. Consider wound vac. MARCELINO MICHELLE DO 03/18/23 1515: History of Present Illness History of Present Illness Time Seen by Provider: 14:10 History of Present Illness Surgery asked to consult regarding Right Lower Extremity wound. HPI per ER: 77-year-old female sent in by wound care for evaluation of a wound that is approximately 3 weeks old. Patient suffered a leg injury approximately 3 weeks ago which was repaired and dehisced. Patient has been on both Keflex for wound infection along with doxycycline recently. Patient and caregivers report over the last 24 to 36 hours is gotten a lot worse. Patient was seen at wound care today when she attempted to debride it but felt that it would need further debridement and probable surgical did remain. She is concerned about Pseudomonas infection, sent her to the ER to have a surgical evaluation and possible admission for IV antibiotics. When I saw pt she was lying in the ER bed in minimal distress. She has developmental delay and her 2 rifle case repairer were in the room; able to help with some information. This started on 02/28 after she "scraped her leg on metal can". She has been on ABX and it seems to be getting worse and having more pain now. The workers have been packing it, they don't report any purulence but the redness has gotten much worse. Allergies and Home Medications Allergies Coded Allergies: Iodinated Contrast Media (Unverified Adverse Reaction, Unknown, 02/24/20) NSAIDS (Non-Steroidal Anti-Inflamma (Unverified Adverse Reaction, Unknown, 02/24/20) glimepiride (Unverified Adverse Reaction, Unknown, 02/24/20) Patient Home Medication List Home Medication List Reviewed: Yes Acetaminophen (Acetaminophen) 500 Mg Tablet, 1,000 MG PO BID, (Reported) Entered as Reported by: ZANE CASTELLANO on 03/13/21 152 Acetaminophen (Tylenol) 325 Mg Capsule, 650 MG PO Q12H PRN for PAIN-MILD (1-4), (Reported) Entered as Reported by: ZANE CASTELLANO on 03/13/21 152 Albuterol Sulfate (Ventolin Hfa) 1 Puff Puff, 2 PUFF INH Q6H PRN for SHORTNESS OF BREATH, (Reported) Entered as Reported by: INOCENTE CHADWICK on 02/24/20 09 Budesonide/Formoterol Fumarate (Symbicort 160-4.5 Mcg Inhaler) 10.2 Gm Hfa.aer.ad, 2 PUFF INH BID, (Reported) Entered as Reported by: ROYA LERNER on 04/26/201209 Calcium Carbonate (Calcium Carbonate) 500 Mg Tablet, 1,000 MG PO Q4H PRN for HEARTBURN, (Reported) Entered as Reported by: ROYA LERNER on 04/26/20 121 Chlorpheniramine/Dextromethorp (Chld Robitussin Night Cough Dm) 118 Ml Liquid, 5 ML PO Q6H PRN for COUGH, (Reported) Entered as Reported by: ZANE CASTELLANO on 03/13/21 152 Cholecalciferol (Vitamin D3) (D3-2000) 50 Mcg Capsule, 50 MCG PO DAILY, (Reported) Entered as Reported by: INOCENTE CHADWICK on 02/24/20935 Cyclobenzaprine HCl (Cyclobenzaprine HCl) 5 Mg Tablet, 5 MG PO BID, (Reported) Entered as Reported by: ROYA LERNER on 04/26/201209 Dexlansoprazole (Dexilant) 60 Mg bp, 60 MG PO DAILY, (Reported) Entered as Reported by: ROYA LERNER on 04/26/20 121 Diphenhydramine HCl (Benadryl Allergy) 25 Mg Tablet, 25-50 MG PO Q6H PRN for ALLERGIC REACTIONS, (Reported) Entered as Reported by: ROYA LERNER on 04/26/201209 Docusate Sodium (Docusate Sodium) 100 Mg Capsule, 100 MG PO BID, (Reported) Entered as Reported by: INOCENTE CHADWICK on 02/24/20935 Ferrous Sulfate (Iron) 325 Mg Tablet, 325 MG PO BID, (Reported) Entered as Reported by: INOCENTE CHADWICK on 02/24/20 09 Fluticasone Propionate (Flonase Allergy Relief) 9.9 Ml Hostetter.susp, 1 SPRAY NSEACH DAILY, (Reported) Entered as Reported by: ROYA LERNER on 04/26/20 121 Furosemide (Furosemide) 20 Mg Tablet, 20 MG PO DAILY, (Reported) Entered as Reported by: ZANE CASTELLANO on 03/13/21 152 Glipizide (Glipizide) 10 Mg Tablet, 10 MG PO BID, (Reported) Entered as Reported by: ZANE CASTELLANO on 03/14/21 0933 Guaifenesin/Dextromethorphan (Guaifenesin-Dm 100-10 mg/5 ml) 5 Ml Liquid, 10 ML PO Q4H PRN for COUGH, (Reported) Entered as Reported by: ZANE CASTELLANO on 03/13/21 152 Hydrocortisone Acetate (Hydrocortisone Acetate) 28.4 Gm Cream..g., 1 APPLIC TP Q8H PRN for RASH, (Reported) Entered as Reported by: ZANE CASTELLANO on 03/13/21 152 Ipratropium/Albuterol Sulfate (Iprat-Albut 0.5-3(2.5) mg/3 ml) 3 Ml Ampul.neb, 3 ML IH QID, (Reported) Entered as Reported by: ZANE CASTELLANO on 03/13/21 152 Levothyroxine Sodium (Synthroid) 88 Mcg Tablet, 88 MCG PO DAILY, (Reported) Entered as Reported by: SARAH CRUZ on 07/16/18 1302 Loperamide HCl (Imodium A-D) 2 Mg Capsule, 2 MG PO Q6H PRN for DIARRHEA, (Reported) Entered as Reported by: ZANE CASTELLANO on 03/13/21 152 Losartan Potassium (Losartan Potassium) 100 Mg Tablet, 100 MG PO DAILY, (Reported) Entered as Reported by: ZANE CASTELLANO on 03/13/21 152 Magnesium Hydroxide (Milk of Magnesia) 400 Mg/5 Ml Oral.susp, 30 ML PO Q12H PRN for CONSTIPATION-7TH LINE, (Reported) Entered as Reported by: ROYA LERNER on 04/26/20 1210 Magnesium Oxide (Magnesium Oxide) 400 Mg Tablet, 400 MG PO DAILY, (Reported) Entered as Reported by: INOCENTE CHADWICK on 02/24/20 0936 Meclizine HCl (Meclizine HCl) 25 Mg Tablet, 25 MG PO Q8H PRN for DIZZINESS, (Reported) Entered as Reported by: ROYA LERNER on 04/26/20 1210 Menthol (Cough Drops) 5 Mg Lozenge, 5 MG MM EVERY 1 HOUR PRN for COUGH, (Reported) Entered as Reported by: ZANE CASTELLANO on 03/13/211526 Menthol/Zinc Oxide (Gold López Medicated Body Powd) 113 Gm Powder, 1 APPLIC TP DAILY, (Reported) Entered as Reported by: ZANE CASTELLANO on 03/13/211526 Montelukast Sodium (Montelukast Sodium) 10 Mg Tablet, 10 MG PO HS, (Reported) Entered as Reported by: ZANE CASTELLANO on 03/13/211526 Multivitamin with Minerals (Multivitamins with Minerals) 1 Each Tablet, 1 EACH PO DAILY, (Reported) Entered as Reported by: ZANE CASTELLANO on 03/13/211526 [place]-3/Dha/Epa/Fish Oil (Fish Oil 1,000 mg Softgel) 1 Each Capsule, 1 EACH PO DAILY, (Reported) Entered as Reported by: INOCENTE CHADWICK on 02/24/20 0936 Ondansetron (Ondansetron Odt) 4 Mg Tab.rapdis, 4 MG PO Q8H PRN for NAUSEA/VOMITING-1ST LINE, (Reported) Entered as Reported by: ZANE CASTELLANO on 03/13/211526 Polyethylene Glycol 3350 (Miralax) 17 Gm Powd.pack, 17 GM PO DAILY PRN for CONSTIPATION-2ND LINE, (Reported) Entered as Reported by: ROYA LERNER on 04/26/20 1210 Rosuvastatin Calcium (Rosuvastatin Calcium) 20 Mg Tablet, 20 MG PO HS, (Reported) Entered as Reported by: ZANE CASTELLANO on 03/13/211526 Sucralfate (Carafate) 1 Gm Tablet, 1 GM PO 0730,1600, (Reported) Entered as Reported by: INOCENTE CHADWICK on 02/24/20 0936 Tetrahydrozoline HCl (Tetrahydrozoline HCl) 15 Ml Drops, 2 DROPS OU Q6H PRN for DRY EYES, (Reported) Entered as Reported by: ZANE CASTELLANO on 03/13/21 152 Ticagrelor (Brilinta) 90 Mg Tablet, 90 MG PO BID, (Reported) Entered as Reported by: ZANE CASTELLANO on 03/13/21 152 Past Wesfzoz-Flcimg-Nxfbwu Hx Patient Social History Smoking Status: Never a Smoker Alcohol Use?: No Surgeries History of Surgeries: Yes Surgeries: Abdominal, Coronary Stent, Gallbladder Respiratory History of Respiratory Disorde: Yes Respiratory Disorders: Asthma Cardiovascular History of Cardiac Disorders: Yes Cardiac Disorders: Coronary Artery Disease, High Cholesterol, Hypertension, Peripheral Vascular 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 History of 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 Disord: Yes 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 Disorders: Developmental Disorder Genitourinary History of Genitourinary Disor: Yes Genitourinary Disorders: Renal Failure Gastrointestinal History of Gastrointestinal Di: Yes Gastrointestinal Disorders: Gastroesophageal Reflux Musculoskeletal History of Musculoskeletal Dis: No Endocrine History of Endocrine Disorders: Yes Endocrine Disorders: Diabetes, Non-Insulin dep HEENT History of HEENT Disorders: No Loss of Vision: Denies Hearing Impairment: Hard of Hearing Cancer History of Cancer: No Psychosocial History of Psychiatric Problem: Yes (developmental disorder) Integumentary History of Skin or Integumenta: Yes Skin/Integumentary Disorders: Recent Skin Changes Family Medical History Significant Family History: No Pertinent Family Hx Review of Systems-General ROS-Unable to Obtain: case workers had left, unable to get more; pt can't relate any Constitutional: No chills, No fever Respiratory: No cough, No dyspnea on exertion Cardiovascular: No chest pain, No palpitations Skin: No change in color, No change in hair/nails; other (worsening of R LE cellulitis) Physical Exam-General Problems Physical Exam General Appearance: no apparent distress (did have distress when extremity was palpated), obese Eyes: Bilateral Eye PERRL, Bilateral Eye EOMI HEENT: pharynx normal; No scleral icterus (R), No scleral icterus (L) Neck: non-tender, supple Respiratory: lungs clear, normal breath sounds, no respiratory distress, no accessory muscle use Cardiovascular: regular rate, rhythm, no edema, no murmur Gastrointestinal: non tender, soft, no organomegaly Extremities: no pedal edema, other (right lower extremity, just lateral to tibia is an open stellate wound, some fibrinous material in wound bed but nothing necrotic. There is erythema extending medially on anterior aspect all the way laterally, beginning to come posteriorly. It is very tender to palpation. There is some tunneling deep and another that goes superiorly. Below the knee to above the ankle.) Neurologic/Psychiatric: other (developmental delay) Skin: normal color, warm/dry, other (very slight venous stasis changes on left lower extremity) Data Review Radiology Date of Exam:03/18/23 CT EXTREMITY LOWER RIGHT WO PROCEDURE: CT right lower extremity without contrast. TECHNIQUE: Axially acquired CT was obtained through the right lower extremity without intravenous contrast. Coronal and sagittal reformations were also performed. Auto Exposure Controls were utilized during the CT exam to meet ALARA standards for radiation dose reduction. INDICATION: Cellulitis in the right lower extremity. Injury. COMPARISON: 03/14/2023. FINDINGS: A soft tissue defect is seen adjacent to the lateral aspect of the mid right tibia and fibula. There is a fluid collection associated with this soft tissue defect measuring 3.2 x 1.2 cm and 6.1 cm craniocaudal. Associated soft tissue inflammation and edema is seen in the right lower extremity, predominantly along the lateral aspect. No radiopaque foreign bodies. No acute fracture in the right tibia and fibula. The right ankle demonstrates normal alignment. No suspicious focal osseous lesions. IMPRESSION: 1. Findings concerning for abscess adjacent to the mid right tibia and fibula laterally. This is associated with a soft tissue defect. No radiopaque foreign bodies. 2. No acute fracture or dislocation in the right tibia and fibula. Dictated by: Dictated on workstation # [id number] Dict: 03/18/23 1449 Trans: 03/18/23 1457 [id number] Interpreted by: NATHALIE WOLFF DO Electronically signed by: NATHALIE WOLFF DO 03/18/23 1457 Assessment/Plan Assessment/Plan Assessment/Plan Right Lower Extremity - Open wound with Cellulitis Coagulopathy Leukocytosis Developmental delay HTN, CKD, CAD, DM, Asthma I think pt should be placed on IV ABX because she failed outpt ABX. I did not see any necrotic tissue in the wound and I reviewed the CT myself and do not see anything that would make me worry about Necrotizing Fasciitis. I don't think there is an abscess, because I can see fluid in the wound and it is not purulent; most likely fluid from washing of wound. At this point there is nothing surgical that needs to be done and she is on Plavix, would hold Plavix in case she needs surgery. Recheck labs in AM, would get a wound consult and pt may benefit from Wound VAC. Supervisory-Addendum Brief Verification & Attestation Participated in pt care: history, MDM, physical Personally performed: exam, history, MDM, supervision of care Care discussed with: Medical Student Procedures: n/a Verification and Attestation of Medical Student E/M Service A medical student performed and documented this service. I then reviewed and verified all information documented by the medical student and made modifications to such information, when appropriate. I personally performed a physical exam, medical decision making and then discussed any differences between the notes and made revisions as necessary to create one note. Marcelino Michelle , 03/18/23 , 15:46 JASMYN PETERSON Mar 18, 2023 14:38 MARCELINO MICHELLE DO Mar 18, 2023 15:15
--- NOTE | 2023-03-18 14:57 | Diagnostic Imaging Report ---
PROCEDURE: CT right lower extremity without contrast. TECHNIQUE: Axially acquired CT was obtained through the right lower extremity without intravenous contrast. Coronal and sagittal reformations were also performed. Auto Exposure Controls were utilized during the CT exam to meet ALARA standards for radiation dose reduction. INDICATION: Cellulitis in the right lower extremity. Injury. COMPARISON: 03/14/2023. FINDINGS: A soft tissue defect is seen adjacent to the lateral aspect of the mid right tibia and fibula. There is a fluid collection associated with this soft tissue defect measuring 3.2 x 1.2 cm and 6.1 cm craniocaudal. Associated soft tissue inflammation and edema is seen in the right lower extremity, predominantly along the lateral aspect. No radiopaque foreign bodies. No acute fracture in the right tibia and fibula. The right ankle demonstrates normal alignment. No suspicious focal osseous lesions. IMPRESSION: 1. Findings concerning for abscess adjacent to the mid right tibia and fibula laterally. This is associated with a soft tissue defect. No radiopaque foreign bodies. 2. No acute fracture or dislocation in the right tibia and fibula. Dictated by: Dictated on workstation # [id number]
[2023-03-18 15:36] VITALS: BP 116/67
[2023-03-18] MEDS ORDERED: ONDANSETRON INJECTION 4 MG/2 ML (SDV) IV PRN (16:15)
[2023-03-18] MEDS ORDERED: VANCOMYCIN INJECTION 0.1 MG in NS (IVPB) 250 ML 250 ML IV SCH (16:15)
[2023-03-18] MEDS ORDERED: MELATONIN 3 MG TABLET PO PRN (16:15)
[2023-03-18] MEDS ORDERED: ACETAMINOPHEN 325 MG TABLET PO PRN ×2 (16:15→20:15)
[2023-03-18] MEDS ORDERED: ANTACID SUSPENSION 30 ML UDC PO PRN (16:15)
[2023-03-18] MEDS ORDERED: CALCIUM CARBONATE 500 MG CHEW TABLET PO PRN (16:15)
[2023-03-18] MEDS ORDERED: ONDANSETRON 4 MG ORAL DISSOLVE TABLET PO PRN (16:15)
[2023-03-18] MEDS ORDERED: MILK OF MAGNESIA 400 MG/5 ML 30 ML UDC PO PRN (16:15)
[2023-03-18] MEDS ORDERED: NS IV 500 ML 500 ML IV PRN (16:15)
[2023-03-18] MEDS ORDERED: BISACODYL 10 MG SUPPOSITORY PR PRN (16:15)
[2023-03-18] MEDS ORDERED: LACTULOSE SYRUP 10GM/15ML 30ML UDC PO PRN (16:15)
[2023-03-18] MEDS ORDERED: CATHETER FLUSH 10 ML SYR IVP PRN (16:15)
[2023-03-18] MEDS ORDERED: VANCOMYCIN 500 MG/NS 100 ML IV NR ×2 (16:30)
[2023-03-18] MEDS ORDERED: morphine INJ 10 MG/ML 1ML (SYR OR VIAL) IVP PRN (16:45)
[2023-03-18] MEDS ORDERED: morphine INJ 4 MG/ML 1 ML (VIAL/SYRINGE) IV PRN (17:00)
[2023-03-18 19:40] VITALS: BP 128/61
[2023-03-18] MEDS: inSUlin ASPART 1 UNIT/0.01 ML (PER UNIT) SC SCH (20:35)
[2023-03-18] MEDS: PIPERACILLIN/Tazobactam 4.5 GM in NS (IVPB) 100 ML 100 ML IV SCH (20:43)
[2023-03-18] MEDS: DOCUSATE SODIUM 100 MG CAPSULE PO SCH (20:43)
[2023-03-18] MEDS: SUCRALFATE 1 GM TABLET PO SCH (20:43)
[2023-03-18] MEDS: MONTELUKAST 10 MG TABLET PO SCH (20:43)
[2023-03-18] MEDS: SENNOSIDES 8.6 MG TABLET PO SCH (20:43)
[2023-03-18] MEDS: CATHETER FLUSH 10 ML SYR IVP SCH (20:44)
[2023-03-18 23:04] VITALS: BP 150/67
[2023-03-19 04:06] VITALS: BP 133/68
[2023-03-19] MEDS: PIPERACILLIN/Tazobactam 4.5 GM in NS (IVPB) 100 ML 100 ML IV SCH ×3 (04:06→20:44)
[2023-03-19 05:26] LABS: BASOPHILS % (AUTO) 0 % (0-10); EOSINOPHILS # (AUTO) 0.3 10^3/uL (0.0-0.3); EOSINOPHILS % (AUTO) 3 % (0-10); HEMATOCRIT 24 % (35-52); HEMOGLOBIN 7.6 g/dL (11.5-16.0); LYMPHOCYTES % (AUTO) 18 % (12-44); MEAN CORPUSCULAR HEMOGLOBIN 30 pg (25-34); MEAN CORPUSCULAR HGB CONC 31 g/dL (32-36); MEAN CORPUSCULAR VOLUME 96 fL (80-99); MEAN PLATELET VOLUME 9.5 fL (9.0-12.2); MONOCYTES # (AUTO) 0.8 10^3/uL (0.0-1.0); MONOCYTES % (AUTO) 7 % (0-12); NEUTROPHILS # (AUTO) 7.8 10^3/uL (1.8-7.8); NEUTROPHILS % (AUTO) 71 % (42-75); PLATELET COUNT 305 10^3/uL (130-400); WHITE BLOOD COUNT 11.1 10^3/uL (4.3-11.0)
[2023-03-19 05:47] LABS: CALCIUM 9.1 MG/DL (8.5-10.1); CREATININE SERUM 2.04 MG/DL (0.60-1.30); MAGNESIUM 2.2 MG/DL (1.6-2.4); POTASSIUM 3.5 MMOL/L (3.6-5.0)
[2023-03-19] MEDS: inSUlin ASPART 1 UNIT/0.01 ML (PER UNIT) SC SCH ×4 (05:56→21:23)
[2023-03-19] MEDS: POTASSIUM CL 10MEQ/50ML IVPB 50 ML IV SCH (05:57)
[2023-03-19] MEDS: MAGNESIUM 1 GM/100 ML IVPB 100 ML IV SCH (05:57)
[2023-03-19] MEDS: POTASSIUM BICARB 20 MEQ effervescent TABLET PO SCH (05:57)
[2023-03-19] MEDS: POTASSIUM CHLORIDE 20 MEQ TABLET PO SCH (05:58)
[2023-03-19] MEDS: CATHETER FLUSH 10 ML SYR IVP SCH ×3 (06:14→20:55)
[2023-03-19] MEDS: LEVOTHYROXINE 88 MCG TABLET PO SCH (06:14)
[2023-03-19] MEDS: SUCRALFATE 1 GM TABLET PO SCH ×4 (06:14→20:44)
[2023-03-19 07:45] VITALS: BP 142/65
--- NOTE | 2023-03-19 08:05 | Progress Note - Surgery ---
JASMYN PETERSON 03/19/23 0805: Subjective Date Seen by a Provider: Mar 19, 2023 Time Seen by a Provider: 07:30 Subjective/Events-last exam Christiana Quezada was seen in her room lying in bed. She says her leg is throbbing this morning but she is feeling generally well. She is eating, slept well, and has been ambulating to the bathroom. Review of Systems General: No Chills, No Night Sweats HEENT: No Head Aches, No Dysphasia, No Sore Throat Pulmonary: No Dyspnea, No Cough Cardiovascular: No: Chest Pain, Palpitations Gastrointestinal: No: Nausea, Vomiting, Abdominal Pain Genitourinary: No Dysuria, No Frequency Musculoskeletal: leg pain (R LE discomfort with adjustment of bandage and palpation ) Objective Exam Vital Signs Date Time Temp Pulse Resp B/P (MAP) Pulse Ox O2 Delivery O2 Flow Rate FiO2 03/19/23 04:06 37.0 89 18 133/68 (89) 94 Room Air 03/18/23 23:04 36.7 82 18 150/67 (94) 95 Room Air 03/18/23 20:40 Room Air 03/18/23 19:40 36.3 83 18 128/61 (83) 96 Room Air 03/18/23 15:45 Simple Mask 03/18/23 15:37 36.1 62 151/92 (111) 03/18/23 15:36 36.7 84 20 116/67 (83) 94 Room Air 03/18/23 15:34 18 98/63 98 Room Air 03/18/23 12:48 37.7 98 20 138/64 (88) 91 Room Air I & O 03/19/23 07:00 Intake Total 1200 ml Balance 1200 ml Capillary Refill : Less Than 3 Seconds General Appearance: No Apparent Distress HEENT: PERRL/EOMI, Moist Mucous Membranes Neck: Non Tender, Supple Respiratory: Lungs Clear, Normal Breath Sounds, No Accessory Muscle Use, No Respiratory Distress Cardiovascular: Regular Rate, Rhythm, No Edema, No Murmur Gastrointestinal: non tender, soft, no organomegaly Extremity: Other (open wound on R lower anterior leg 3cm x 2cm, surrounding erythema extending upward toward her knee, down to her ankle and around the leg both medially and laterally, approximately 15cm x 15cm. No necrotic tissue seen. Scant clear fluid is seen draining from the wound on removal of dressing.) Neurologic/Psychiatric: Alert, Oriented x3, Normal Mood/Affect Results Lab Laboratory Tests 03/18/23 12:56: White Blood Count 13.3H, Red Blood Count 2.66L, Hemoglobin 7.9L, Hematocrit 26L, Mean Corpuscular Volume 97, Mean Corpuscular Hemoglobin 30, Mean Corpuscular Hemoglobin Concent 31L, Red Cell Distribution Width 14.1, Platelet Count 314, Mean Platelet Volume 9.2, Immature Granulocyte % (Auto) 1, Neutrophils (%) (Auto) 73, Lymphocytes (%) (Auto) 18, Monocytes (%) (Auto) 7, Eosinophils (%) (Auto) 1, Basophils (%) (Auto) 0, Neutrophils # (Auto) 9.7H, Lymphocytes # (Auto) 2.4, Monocytes # (Auto) 0.9, Eosinophils # (Auto) 0.2, Basophils # (Auto) 0.0, Immature Granulocyte # (Auto) 0.1, Sodium Level 138, Potassium Level 3.7, Chloride Level 100, Carbon Dioxide Level 25, Anion Gap 13, Blood Urea Nitrogen 52H, Creatinine 2.04H, Estimat Glomerular Filtration Rate 25, BUN/Creatinine Ratio 25, Glucose Level 159H, Calcium Level 9.7, Corrected Calcium 9.8, Total Bilirubin 0.2, Aspartate Amino Transf (AST/SGOT) 13, Alanine Aminotransferase (ALT/SGPT) 11, Alkaline Phosphatase 87, Total Protein 8.4H, Albumin 3.9 03/18/23 20:09: Glucometer 140H 03/19/23 05:00: White Blood Count 11.1H, Red Blood Count 2.52L, Hemoglobin 7.6L, Hematocrit 24L, Mean Corpuscular Volume 96, Mean Corpuscular Hemoglobin 30, Mean Corpuscular Hemoglobin Concent 31L, Red Cell Distribution Width 13.9, Platelet Count 305, Mean Platelet Volume 9.5, Immature Granulocyte % (Auto) 1, Neutrophils (%) (Auto) 71, Lymphocytes (%) (Auto) 18, Monocytes (%) (Auto) 7, Eosinophils (%) (Auto) 3, Basophils (%) (Auto) 0, Neutrophils # (Auto) 7.8, Lymphocytes # (Auto) 2.0, Monocytes # (Auto) 0.8, Eosinophils # (Auto) 0.3, Basophils # (Auto) 0.0, Immature Granulocyte # (Auto) 0.1, Sodium Level 138, Potassium Level 3.5L, Chloride Level 104, Carbon Dioxide Level 22, Anion Gap 12, Blood Urea Nitrogen 49H, Creatinine 2.04H, Estimat Glomerular Filtration Rate 25, BUN/Creatinine Ratio 24, Glucose Level 101, Calcium Level 9.1, Magnesium Level 2.2 Assessment/Plan Assessment/Plan Assessment/Plan Right lower extremity - open wound with cellulitis leukocytosis, trending down today coagulopathy developmental delay Continue IV fluids, continue to hold Plavix in case patient needs surgery. Recheck CBC tomorrow morning. TRACIEJEAN-PIERREMARCELINO Sandoval DO 03/19/23 0909: Subjective Time Seen by a Provider: 08:54 Subjective/Events-last exam Pt seen and examined, does not appear to be in any distress. She states she has leg pain, but not worse. Review of Systems General: No Chills, No Night Sweats Pulmonary: No Dyspnea, No Cough Cardiovascular: No: Chest Pain, Palpitations Gastrointestinal: No: Nausea, Vomiting, Abdominal Pain Musculoskeletal: leg pain (R LE discomfort with adjustment of bandage and palpation ) Objective Exam General Appearance: No Apparent Distress, Obese HEENT: PERRL/EOMI, Moist Mucous Membranes Respiratory: Lungs Clear, Normal Breath Sounds, No Accessory Muscle Use, No Respiratory Distress Cardiovascular: Regular Rate, Rhythm, No Murmur Gastrointestinal: non tender, soft, no organomegaly Extremity: Other (open wound on R lower anterior leg 3cm x 2cm, surrounding erythema extending upward toward her knee, down to her ankle and around the leg both medially and laterally, approximately 15cm x 15cm. No necrotic tissue seen. Scant clear fluid is seen draining from the wound on removal of dressing.) Assessment/Plan Assessment/Plan Assessment/Plan Right lower extremity - open wound with cellulitis leukocytosis, trending down today coagulopathy developmental delay Continue IV fluids, continue to hold Plavix in case patient needs surgery. Recheck CBC tomorrow morning. Will order and place a Wound Vac to help drain the fluid and hopefully speed healing. Supervisory-Addendum Brief Verification & Attestation Participated in pt care: history, MDM, physical Personally performed: exam, history, MDM, supervision of care Care discussed with: Medical Student Procedures: n/a Verification and Attestation of Medical Student E/M Service A medical student performed and documented this service. I then reviewed and verified all information documented by the medical student and made modifications to such information, when appropriate. I personally performed a physical exam, medical decision making and then discussed any differences betw een the notes and made revisions as necessary to create one note. Marcelino Michelle , 03/19/23 , 09:10 JASMYN PETERSON Mar 19, 2023 08:05 MARCELINO MICHELLE DO Mar 19, 2023 09:09
[2023-03-19] MEDS: PANTOPRAZOLE 20 MG TABLET PO SCH (08:47)
[2023-03-19] MEDS: oxyCODONE IMMEDIATE RELEASE 5 MG TABLET PO PRN ×2 (08:47→20:53)
[2023-03-19] MEDS: SENNOSIDES 8.6 MG TABLET PO SCH ×2 (08:47→20:45)
[2023-03-19] MEDS: DOCUSATE SODIUM 100 MG CAPSULE PO SCH ×2 (08:49→20:45)
[2023-03-19] MEDS ORDERED: POTASSIUM CHLORIDE 20 MEQ TABLET PO ONE (09:00)
[2023-03-19] MEDS ORDERED: HYPOCHLOROUS ACID/NaCl WOUND SOLN 250 ML IR SCH (09:00)
--- NOTE | 2023-03-19 09:03 | Wound Care Assessment ---
Wound Care Assessment Date Seen by Provider: Mar 19, 2023 Time Seen by Provider: 08:53 Chief Complaint R. calf wound infection/abscess HPI This pleasant 77 year old presented to our office initially on 03-13-23 from her PCP's office. She had an unwitnessed fall while at home with resulting laceration which was not discovered until several hours later. Per staff, there was copious blood about her home and a large hematoma was evident on ER note from that day when sutures were placed. She did follow up with her PCP for suture removal and referred her our way due to dehiscence and concern for infection. Prior to onset of care with us, she had completed a course of Keflex and had been started on Doxycycline (she has completed 5 days). In office, I did remove remaining sutures and noted a large non-evolving hematoma contiguous with initial laceration. I did open the cavity with local anesthesia at first visit and removed as much retained clot as possible. The cavity was open and without obvious signs of slough or purulence on that visit. We opted to pack with Vashe dampened gauze and have planned for outpatient wound vac (goal was initiation this week). I did also check arterial ultrasound as outpatient (03-14-23) which was reassuring. Christiana returned urgently to my office yesterday with worsening noted in last 24 hours. She now has evidence of erythema, induration extending surround wound opening with exquisite pain and copious purulent drainage. The cavity which was open last week now has evidence of copious necrotic material (slough) nearly filling the wound cavity. CT suspicious for abscess/wound infection (3.2x1.2x6.1cm). Surgery has seen patient in consultation and is holding plavix in case surgery should be warranted. Her baseline hemoglobin is 10 (02/18/23) and has now dropped to 7.6. I suspect this is due to large hematoma and bleeding from initial laceration. We will be unable to pack easily with Vashe/gauze due to the small opening today so I will order iodoform packing strip instead. I hope with the antibiotics, swelling will improve. If surgery not performed while she is inpatient, I will likely need to open further for wound vac placement in near future. We will monitor closely and move forward as indicated. Could consider bedside debridement if she remains in the hospital for some time as well. Past Medical History: Admits Diabetes Type II CKD stage 3, Anemia of renal disease (and acute blood loss), Obesity Smoking Status: Never a Smoker Recreational Drug Use: No Alcohol Use: Denies Use Review of Systems General: Other (Obesity) Musculoskeletal: leg pain Other systems Moderate intellectual disability Exam Vital Signs Date Time Temp Pulse Resp B/P (MAP) Pulse Ox O2 Delivery O2 Flow Rate FiO2 03/19/23 07:45 36.9 84 18 142/65 (90) 92 Room Air Capillary Refill : Less Than 3 Seconds General Appearance: no apparent distress, obese HEENT: other (Normal hearing) Neck: full range of motion Respiratory: no respiratory distress, no accessory muscle use Extremities: calf tenderness, inflammation, pedal edema, swelling Neurologic/Psychiatric: alert, normal mood/affect, oriented x 3 Skin Problem Location: lower extremities Skin Character: abscess, drainage (purulent), erythema, swelling, thickening, warm Wound assessment: 4x2.3x7cm. The epithelialization is none. There is no tunneling but there is undermining from 7-1 with the greatest depth of 4.4cm. Drainage is large and purulent. Granulation is none. Necrotic is large and slough. The margins are flat. There is erythema and induration exdending from wound cavity which has been marked by staff. Results Laboratory Tests 03/18/23 12:56: White Blood Count 13.3H, Red Blood Count 2.66L, Hemoglobin 7.9L, Hematocrit 26L, Mean Corpuscular Volume 97, Mean Corpuscular Hemoglobin 30, Mean Corpuscular Hemoglobin Concent 31L, Red Cell Distribution Width 14.1, Platelet Count 314, Mean Platelet Volume 9.2, Immature Granulocyte % (Auto) 1, Neutrophils (%) (Auto) 73, Lymphocytes (%) (Auto) 18, Monocytes (%) (Auto) 7, Eosinophils (%) (Auto) 1, Basophils (%) (Auto) 0, Neutrophils # (Auto) 9.7H, Lymphocytes # (Auto) 2.4, Monocytes # (Auto) 0.9, Eosinophils # (Auto) 0.2, Basophils # (Auto) 0.0, Immature Granulocyte # (Auto) 0.1, Sodium Level 138, Potassium Level 3.7, Chloride Level 100, Carbon Dioxide Level 25, Anion Gap 13, Blood Urea Nitrogen 52H, Creatinine 2.04H, Estimat Glomerular Filtration Rate 25, BUN/Creatinine Ratio 25, Glucose Level 159H, Calcium Level 9.7, Corrected Calcium 9.8, Total Bilirubin 0.2, Aspartate Amino Transf (AST/SGOT) 13, Alanine Aminotransferase (ALT/SGPT) 11, Alkaline Phosphatase 87, Total Protein 8.4H, Albumin 3.9 03/18/23 20:09: Glucometer 140H 03/19/23 05:00: White Blood Count 11.1H, Red Blood Count 2.52L, Hemoglobin 7.6L, Hematocrit 24L, Mean Corpuscular Volume 96, Mean Corpuscular Hemoglobin 30, Mean Corpuscular Hemoglobin Concent 31L, Red Cell Distribution Width 13.9, Platelet Count 305, Mean Platelet Volume 9.5, Immature Granulocyte % (Auto) 1, Neutrophils (%) (Auto) 71, Lymphocytes (%) (Auto) 18, Monocytes (%) (Auto) 7, Eosinophils (%) (Auto) 3, Basophils (%) (Auto) 0, Neutrophils # (Auto) 7.8, Lymphocytes # (Auto) 2.0, Monocytes # (Auto) 0.8, Eosinophils # (Auto) 0.3, Basophils # (Auto) 0.0, Immature Granulocyte # (Auto) 0.1, Sodium Level 138, Potassium Level 3.5L, Chloride Level 104, Carbon Dioxide Level 22, Anion Gap 12, Blood Urea Nitrogen 49H, Creatinine 2.04H, Estimat Glomerular Filtration Rate 25, BUN/Creatinine Ratio 24, Glucose Level 101, Calcium Level 9.1, Magnesium Level 2.2 Assessment/Plan/Dx Assessment: 1. R. lateral calf abscess with associated cellulitis 2. Fall with laceration and resulting hemorrhage/hematoma (02-28-23) 3. DM2 (well controlled) 4. CKD stage 3 5. Anemia of renal disease (baseline Hgb 10.0) 6. Lymphedema (chronic obesity related) 7. Moderate intellectual disability Plan: 1. Agree with broad spectrum antibiotics. Wound culture ordered in ER (will check to make certain it has been obtained for targeted OP antibiotics on discharge). Plan to pack with iodoform currently (wound opening too small for Vashe packing or wound vac). Will likely need opening (either inpatient or outpatient) with debridement of slough to allow for easy wound vac placement as outpatient. 2. Agree with holding Plavix in light of drop in Hgb and recent hematoma. [place]. if surgery planned in near future. Continue to monitor and transfuse as indicated per primary team. Patient is ambulating well with assistance of walker 3. Good control (A1C of 6.5 on 02-18-23). Continue to monitor 4. Mild worsening of renal status. Likely related to infection and anemia 5. Defer to primary team. Work up ordered 6. Elevation recommended. We will consider compression as outpatient. 7. May complicate compliance. Lives at [place]. Staff will aide in care and Home Health already planned as outpatient for wound vac application when able. TY OCASIO MD Mar 19, 2023 09:03
[2023-03-19] MEDS ORDERED: VANCOMYCIN 1 GM/NS 250 ML IVPB IV SCH ×4 (10:00→14:00)
[2023-03-19 12:09] VITALS: BP 145/65
--- NOTE | 2023-03-19 13:18 | History & Physical-Hospitalist ---
MICHAEL FLEMING 03/19/23 1318: History of Present Illness HPI/Chief Complaint Christiana Quezada is a 77yo female who presented to the ED yesterday with R anterior tibial wound that has progressively worsened. About 2.5 weeks ago, Christiana's "leg caught" and she cut her leg on a metal box. Wound care has been seeing her at her home, [place], and were concerned as it has progressively worsened. She describes her pain as an 8/10 that comes and goes which she characterizes as throbbing and burning. The is associated cellulitis accompanying most of the tibial area, stopping before the R lateral malleolus and is contained below the R knee. According to CT LE the wound is "3.2 x 1.2 cm and 6.1 cm craniocaudal".There is serous drainage accompanied. She denied SOB, N/V, diarrhea, chills. This patient has DM, GERD, CK, HTN, and developmental delay.She was started to cephalexin and doxycycline outpatient and was given zosyn and vancomyacin the ED. She was tachypnic, with P>90, and WBC at 13.3 upon arrival with some concern for sepsis, but this seems to have resolved. Lab studies showed elevated WBC count today at 11.1. BUN and Cr are still elevated, likely due to CKD. CT LE findings: 1. Findings concerning for abscess adjacent to the mid right tibia and fibula laterally. This is associated with a soft tissue defect. No radiopaque foreign bodies. 2. No acute fracture or dislocation in the right tibia and fibula Wound Culture Report: Moderate white blood cells No epithelial cells No bacteria seen Surgery was consulted and does not seem to be concerned about an absess. Dr. Ellsworth attempted external debridement feeling some fluctuance on the lateral side with associated drainage with pressure. Wound care does not think the wound is wide enough for a wound vac. Will continue with dressing and IV abx for now. Source: patient, RN/MD Exam Limitations: other (development delay) Date Seen 03/19/23 Time Seen by a Provider: 08:45 Attending Physician Eliud Hernandes MD PCP Admitting Physician: Parish Ellsworth MD Attending Physician: Parish Ellsworth MD Referring Physician Date of Admission Mar 18, 2023 at 15:28 Home Medications & Allergies Home Medications Reviewed patient Home Medication Reconciliation performed by pharmacy medication reconciliations data communications technician and/or nursing. Patients Allergies have been reviewed. Allergies Allergies Coded Allergies Iodinated Contrast Media (Unverified Adverse Reaction, Unknown, 02/24/20) NSAIDS (Non-Steroidal Anti-Inflamma (Unverified Adverse Reaction, Unknown, 02/24/20) glimepiride (Unverified Adverse Reaction, Unknown, 02/24/20) Past Doqgamv-Xvjfom-Apsztl Hx Patient Social History Tobacco Use?: No Tobacco type used: Cigarettes Smoking Status: Never a Smoker Smokeless type used: Chew Smokeless Tobacco Frequency: Former User Use of E-Cig and/or Vaping dev: No Substance use?: No Alcohol Use?: No Pt feels they are or have been: No Immunizations Up To Date Date of Influenza Vaccine: Mar 02, 2018 First/Initial COVID19 Vaccinat: STATES ONE SHOT ONLY Second COVID19 Vaccination Ross: STATES ONE SHOT ONLY Tetanus Booster (TDap): Unknown Hepatitis A: No Hepatitis B: No Date of Pneumonia Vaccine: Mar 30, 2013 Current Status status: No status: No Advance Directives: No Communicates: Verbally Primary Language: [place] Preferred Spoken Language: [place] Is interpretation needed?: No Sensory deficits: Hearing impairment Implanted or Applied Medical D: Stents Past Medical History Surgeries: Abdominal, Coronary Stent, Gallbladder Asthma Coronary Artery Disease, High Cholesterol, Hypertension, Peripheral Vascular Developmental Disorder 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 Sexually Transmitted Disease: No HIV/AIDS: No Renal Failure Gastroesophageal Reflux Arthritis Diabetes, Non-Insulin dep Loss of Vision: Denies Hearing Impairment: Hard of Hearing Recent Skin Changes Blood Disorders: Yes (ANEMIA) Adverse Reaction/Blood Tranf: No (N/A) Family Medical History No Pertinent Family Hx Review of Systems Constitutional: No chills, No diaphoresis EENTM: No ear pain, No blurred vision, No double vision Respiratory: No cough, No orthopnea, No phlegm, No short of breath Cardiovascular: No edema, No palpitations Gastrointestinal: No abdominal pain, No constipation, No diarrhea Genitourinary: No dysuria, No frequency : No Musculoskeletal: No back pain, No neck pain Skin: No change in hair/nails; dryness, other (Deep wound with associated cellulitis ) Psychiatric/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: Denies Headache, Denies Numbness Physical Exam Physical Exam Vital Signs Vital Signs - First Documented 03/18/23 12:48 Temp 37.7 Pulse 98 Resp 20 B/P (MAP) 138/64 (88) Pulse Ox 91 O2 Delivery Room Air Capillary Refill : Less Than 3 Seconds Height, Weight, BMI Height: 5'0.00" Weight: 180lbs. 0.0oz. [id number]; 34.37 BMI Method: General Appearance: No Apparent Distress, WD/WN Eyes: Bilateral Eye Normal Inspection, Bilateral Eye PERRL HEENT: No Photophobia, No Scleral Icterus (L), No Scleral Icterus (R) Neck: Non Tender, Supple Respiratory: Chest Non Tender, Lungs Clear, No Accessory Muscle Use, No Res piratory Distress Cardiovascular: Regular Rate, Rhythm, No Edema Gastrointestinal: Non Tender, Soft Rectal: Deferred Back: No CVA Tenderness, No Vertebral Tenderness Extremity: No Non Tender (R LE tender to palpation); Inflammation (R LE), Swelling (R LE) Neurologic/Psychiatric: Alert; No Disoriented, No Facial Droop Skin: No Normal Color; Erythema, Rash (cellulitis ), Other (warm to touch) Lymphatic: No Adenopathy Results Results/Procedures Labs Laboratory Tests 03/18/23 12:56 03/19/23 05:00 Patient resulted labs reviewed. Assessment/Plan Admission Diagnosis R Leg Wound with Cellulitis Admission Status: Inpatient Order (span 2 midnights) Reason for Inpatient Admission: IV abx, possible wound debridement Assessment and Plan 1. R Leg Wound IV vancomyacin PT/OT pain control - morphine, oxycodone hold plavix in case surgery is needed Wound care tetanus shot 2. Chronic Kidney Disease IV fluids, conservative management 3. Low Hgb Iron studies - pending 4. GERD protonix carafate 5. DM sliding scale insulin 6. Hypertension start metoprolol 7. Hypothyroidism Levothyroxine 8. 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 insulin use: unspecified fdc insulin use status Diabetes mellitus complication status: with other specified complication Qualified Codes: E11.69 - Type 2 diabetes mellitus with other specified complication PARISH ELLSWORTH MD 03/19/23 1837: History of Present Illness Time Seen by a Provider: 11:30 Past Rksvwgy-Adsrih-Qidzih Hx Family Medical History No Pertinent Family Hx Results Results/Procedures Imaging: Reviewed Imaging Report Assessment/Plan Admission Diagnosis Admission Status: Inpatient Order (span 2 midnights) Reason for Inpatient Admission: IV antibiotics Assessment and Plan Admitted with cellulitis and possible abscess after failed outpatient antibiotics. Started on IV antibiotics. Surgery and wound care following. Diagnosis/Problems Diagnosis/Problems (1) Cellulitis of right anterior lower leg Status: Acute (2) Wound abscess Status: Acute (3) Chronic kidney disease Status: Chronic Qualifiers: Chronic kidney disease stage: stage 4 (severe) Qualified Codes: N18.4 - Chronic kidney disease, stage 4 (severe) (4) Type 2 diabetes mellitus Status: Chronic Qualifiers: Diabetes mellitus termite renewal inspector insulin use: unspecified fdc insulin use status Diabetes mellitus complication status: with other specified complication Qualified Codes: E11.69 - Type 2 diabetes mellitus with other specified complication (5) Failure of outpatient treatment Status: Acute (6) Wound infection Status: Acute (7) Infected wound Status: Acute Supervisory-Addendum Brief Verification & Attestation Participated in pt care: history, MDM, physical Personally performed: exam, history, MDM, supervision of care Care discussed with: Medical Student Procedures: n/a A medical student performed and documented this service in my presence. I reviewed and verified all information documented by the medical student and made modifications to such information, when appropriate. I personally performed the physical exam and medical decision making. MICHAEL FLEMING Mar 19, 2023 13:18 PARISH ELLSWORTH MD Mar 19, 2023 18:37
[2023-03-19 16:09] VITALS: BP 124/79
[2023-03-19] MEDS ORDERED: AMLO2.5T4 PO (16:18)
[2023-03-19] MEDS ORDERED: CLOP75TA28 PO (16:18)
[2023-03-19] MEDS ORDERED: [UNRECOGNIZED DRUG - CODE] PO (16:18)
[2023-03-19] MEDS ORDERED: LOSA25TA41 PO (16:18)
[2023-03-19] MEDS ORDERED: PANT20TA18 PO (16:18)
[2023-03-19 20:02] VITALS: BP 124/57
[2023-03-19] MEDS: MONTELUKAST 10 MG TABLET PO SCH (20:44)
[2023-03-20] VITALS (8 sets, daily range): BP systolic 119–158; BP diastolic 58–78
[2023-03-20] MEDS: PIPERACILLIN/Tazobactam 4.5 GM in NS (IVPB) 100 ML 100 ML IV SCH ×3 (04:48→22:48)
[2023-03-20] MEDS: CATHETER FLUSH 10 ML SYR IVP SCH ×3 (04:49→21:28)
[2023-03-20] MEDS: SUCRALFATE 1 GM TABLET PO SCH ×4 (05:22→20:41)
[2023-03-20] MEDS: LEVOTHYROXINE 88 MCG TABLET PO SCH (05:22)
[2023-03-20] MEDS: inSUlin ASPART 1 UNIT/0.01 ML (PER UNIT) SC SCH ×4 (05:45→21:28)
[2023-03-20 05:59] LABS: POTASSIUM 4.5 MMOL/L (3.6-5.0)
[2023-03-20 06:00] LABS: BASOPHILS % (AUTO) 0 % (0-10); CALCIUM 9.3 MG/DL (8.5-10.1); EOSINOPHILS # (AUTO) 0.4 10^3/uL (0.0-0.3); EOSINOPHILS % (AUTO) 4 % (0-10); HEMATOCRIT 23 % (35-52); LYMPHOCYTES # (AUTO) 2.4 10^3/uL (1.0-4.0); LYMPHOCYTES % (AUTO) 23 % (12-44); MEAN CORPUSCULAR HEMOGLOBIN 29 pg (25-34); MEAN CORPUSCULAR HGB CONC 30 g/dL (32-36); MEAN CORPUSCULAR VOLUME 96 fL (80-99); MEAN PLATELET VOLUME 9.6 fL (9.0-12.2); MONOCYTES # (AUTO) 0.8 10^3/uL (0.0-1.0); MONOCYTES % (AUTO) 8 % (0-12); NEUTROPHILS # (AUTO) 6.6 10^3/uL (1.8-7.8); NEUTROPHILS % (AUTO) 64 % (42-75); PLATELET COUNT 305 10^3/uL (130-400); WHITE BLOOD COUNT 10.3 10^3/uL (4.3-11.0)
[2023-03-20 06:05] LABS: CREATININE SERUM 1.92 MG/DL (0.60-1.30)
[2023-03-20] MEDS: POTASSIUM CHLORIDE 20 MEQ TABLET PO SCH (06:05)
[2023-03-20] MEDS: POTASSIUM CL 10MEQ/50ML IVPB 50 ML IV SCH (06:05)
[2023-03-20] MEDS: POTASSIUM BICARB 20 MEQ effervescent TABLET PO SCH (06:05)
[2023-03-20 06:07] LABS: MAGNESIUM 2.2 MG/DL (1.6-2.4)
[2023-03-20] MEDS: MAGNESIUM 1 GM/100 ML IVPB 100 ML IV SCH (06:37)
--- NOTE | 2023-03-20 07:38 | Progress Note - Surgery ---
JASMYN PETERSON 03/20/23 0738: Subjective Date Seen by a Provider: Mar 20, 2023 Time Seen by a Provider: 07:25 Subjective/Events-last exam Christiana Quezada was seen this morning eating breakfast lying in her bed. She continues to feel better today than yesterday but still has some discomfort in her leg when it is manipulated. She is sleeping and eating well and is able to ambulate in her room to the bathroom. Review of Systems General: No Chills, No Night Sweats HEENT: No Head Aches, No Visual Changes Pulmonary: No Dyspnea, No Cough Cardiovascular: No: Chest Pain, Palpitations Gastrointestinal: No: Nausea, Vomiting, Abdominal Pain Genitourinary: No Dysuria, No Frequency Musculoskeletal: leg pain (pain in R LE when examining wound) Objective Exam Vital Signs Date Time Temp Pulse Resp B/P (MAP) Pulse Ox O2 Delivery O2 Flow Rate FiO2 03/20/23 04:10 36.5 86 22 143/63 (89) 96 Nasal Cannula 2.00 03/20/23 00:00 37.2 96 24 122/59 (80) 82 03/19/23 20:57 92 Room Air 03/19/23 20:02 37.1 86 18 124/57 (79) 91 Room Air 03/19/23 16:09 36.8 77 22 124/79 (94) 94 Room Air 03/19/23 12:09 36.8 80 18 145/65 (91) 93 Room Air 03/19/23 08:00 92 Room Air 03/19/23 07:45 36.9 84 18 142/65 (90) 92 Room Air I & O 03/20/23 07:00 Intake Total 2490 ml Balance 2490 ml Capillary Refill : Less Than 3 Seconds General Appearance: No Apparent Distress, WD/WN HEENT: PERRL/EOMI, Moist Mucous Membranes Neck: Non Tender, Supple Respiratory: Chest Non Tender, Lungs Clear, Normal Breath Sounds, No Accessory Muscle Use, No Respiratory Distress Cardiovascular: Regular Rate, Rhythm, No Edema, No Murmur Gastrointestinal: non tender, soft, no organomegaly Extremity: Other (open wound on R lower anterior leg 3cm x 2cm, surrounding erythema extending upward toward her knee, down to her ankle and around the leg both medially and laterally, approximately 15cm x 15cm; not changed from yesterday. The wound is packed and no fluid is seen draining from the wound.) Neurologic/Psychiatric: Alert, Oriented x3 Results Lab Laboratory Tests 03/19/23 11:08: Glucometer 120H 03/19/23 15:50: Glucometer 134H 03/19/23 20:07: Glucometer 122H 03/20/23 05:18: White Blood Count 10.3, Red Blood Count 2.41L, Hemoglobin 7.0L, Hematocrit 23L, Mean Corpuscular Volume 96, Mean Corpuscular Hemoglobin 29, Mean Corpuscular Hemoglobin Concent 30L, Red Cell Distribution Width 14.0, Platelet Count 305, Mean Platelet Volume 9.6, Immature Granulocyte % (Auto) 1, Neutrophils (%) (Auto) 64, Lymphocytes (%) (Auto) 23, Monocytes (%) (Auto) 8, Eosinophils (%) (Auto) 4, Basophils (%) (Auto) 0, Neutrophils # (Auto) 6.6, Lymphocytes # (Auto) 2.4, Monocytes # (Auto) 0.8, Eosinophils # (Auto) 0.4H, Basophils # (Auto) 0.0, Immature Granulocyte # (Auto) 0.1, Sodium Level 139, Potassium Level 4.5, Chloride Level 107, Carbon Dioxide Level 22, Anion Gap 10, Blood Urea Nitrogen 42H, Creatinine 1.92H, Estimat Glomerular Filtration Rate 27, BUN/Creatinine Ratio 22, Glucose Level 100, Calcium Level 9.3, Magnesium Level 2.2 03/20/23 05:44: Glucometer 91 Microbiology 03/18/23 Gram Stain - Final, Resulted 03/18/23 Wound Culture - Preliminary, Resulted Gram Negative Bacillus 1 Assessment/Plan Assessment/Plan Assessment/Plan Right lower extremity - open wound with cellulitis coagulopathy developmental delay Continue IV fluids, continue to hold Plavix in case patient needs surgery. WBC is normal today, consider rechecking before discharge. Consider wound vac to help drain the fluid and speed healing. GUILLAUME JUAREZ DO 03/20/23 1050: Subjective Time Seen by a Provider: 10:42 Subjective/Events-last exam Pt seen and examined, no new complaints and is tolerating diet. Pt is ambulating. Review of Systems Pulmonary: No Dyspnea, No Cough Cardiovascular: No: Chest Pain, Palpitations Gastrointestinal: No: Nausea, Vomiting, Abdominal Pain Musculoskeletal: leg pain (pain in R LE when examining wound) Objective Exam General Appearance: No Apparent Distress, Obese HEENT: PERRL/EOMI, Moist Mucous Membranes Respiratory: Lungs Clear, Normal Breath Sounds, No Accessory Muscle Use, No Respiratory Distress Cardiovascular: Regular Rate, Rhythm, No Edema, No Murmur Gastrointestinal: non tender, soft, no organomegaly Extremity: Other (open wound on R lower anterior leg 3cm x 2cm, surrounding erythema extending upward toward her knee, down to her ankle and around the leg both medially and laterally, approximately 15cm x 15cm; ?slightly smaller vs no change from yesterday. The wound is packed and no fluid is seen draining from the wound.) Neurologic/Psychiatric: Alert, Oriented x3 Assessment/Plan Assessment/Plan Assessment/Plan Right lower extremity - open wound with cellulitis coagulopathy developmental delay WBC has come down, wound care does not want to put wound VAC at this time; would like to try for outpt. Continue IV fluids, continue IV ABX, continue to hold Plavix in case patient needs surgery. Supervisory-Addendum Brief Verification & Attestation Participated in pt care: history, MDM, physical Personally performed: exam, history, MDM, supervision of care Care discussed with: Medical Student Procedures: n/a Verification and Attestation of Medical Student E/M Service A medical student performed and documented this service. I then reviewed and verified all information documented by the medical student and made modifications to such information, when appropriate. I personally performed a physical exam, medical decision making and then discussed any differences between the notes and made revisions as necessary to create one note. Guillaume Juarez , 03/20/23 , 10:50 JASMYN PETERSON Mar 20, 2023 07:38 GUILLAUME JUAREZ DO Mar 20, 2023 10:50
--- NOTE | 2023-03-20 08:47 | Wound Care Assessment ---
Wound Care Assessment Date Seen by Provider: Mar 20, 2023 Time Seen by Provider: 08:36 Chief Complaint R. calf wound infection/abscess HPI Christiana is awake and without complaint this morning. Her leukocytosis is now resolved. Induration and erythema are improved this morning and swelling is greatly improved with current broad spectrum antibiotics. I was able to get a better wound assessment today (see below) as her pain is also improving. The cavity now has evidence of significant necrotic material (slough) and continues to probe nearly the width of her calf (AP) in depth. Purulent drainage is also improving. Preliminary wound culture with gram negative rods (she did fail both keflex and doxycycline as an outpatient). CT on admit suspicious for abscess/wound infection (3.2x1.2x6.1cm). Surgery has seen patient in consultation and is holding plavix in case surgery should be warranted prior to discharge. Her baseline hemoglobin is 10 (02/18/23) and has now dropped to 7.0.. I suspect this is due to large hematoma and bleeding from initial laceration along with some hydrational change since admit. She is doing well with iodoform packing currently and the cavity is more open today. However, with the copious slough to wound bed and the likelihood that she will not remain in the hospital for a prolonged stay, we will continue with packing for now and plan for outpatient wound vac upon discharge. She will need a thorough debridement prior to application of vac. With recent drop in hemoglobin, I do think continuing to hold her Plavix is warranted at this time. This will need to be resumed following wound vac placement/debridement. Past Medical History: Admits Diabetes Type II Smoking Status: Never a Smoker Recreational Drug Use: No Alcohol Use: Denies Use Review of Systems General: Other (moderate intellectual disability) Pulmonary: Other (SOA with ambulation (per patient)) Cardiovascular: Edema (RLE (improved)) Exam Vital Signs Date Time Temp Pulse Resp B/P (MAP) Pulse Ox O2 Delivery O2 Flow Rate FiO2 03/20/23 07:44 36.5 79 16 124/74 (91) 97 Room Air 03/20/23 04:10 2.00 Capillary Refill : Less Than 3 Seconds General Appearance: WD/WN, mild distress (with wound assessment/packing) HEENT: other (normal hearing) Neck: full range of motion Respiratory: no respiratory distress, no accessory muscle use Extremities: inflammation, pedal edema (improved) Neurologic/Psychiatric: alert, normal mood/affect, oriented x 3 Skin Problem Location: lower extremities Skin Character: abscess, drainage (serosanguinous), erythema, swelling, thickening, warm Wound assessment: R. lateral calf: 2.8x3x5.2 cm. The epithelialization is none. There is no tunneling or undermining. Drainage is large and serosanguinous. Granulation is none. Necrotic is large and slough. Margins flat. She has erythema and induration in the periwound which is marked with Sharpie but improved from yesterday. Results Laboratory Tests 03/19/23 11:08: Glucometer 120H 03/19/23 15:50: Glucometer 134H 03/19/23 20:07: Glucometer 122H 03/20/23 05:18: White Blood Count 10.3, Red Blood Count 2.41L, Hemoglobin 7.0L, Hematocrit 23L, Mean Corpuscular Volume 96, Mean Corpuscular Hemoglobin 29, Mean Corpuscular Hemoglobin Concent 30L, Red Cell Distribution Width 14.0, Platelet Count 305, Mean Platelet Volume 9.6, Immature Granulocyte % (Auto) 1, Neutrophils (%) (Auto) 64, Lymphocytes (%) (Auto) 23, Monocytes (%) (Auto) 8, Eosinophils (%) (Auto) 4, Basophils (%) (Auto) 0, Neutrophils # (Auto) 6.6, Lymphocytes # (Auto) 2.4, Monocytes # (Auto) 0.8, Eosinophils # (Auto) 0.4H, Basophils # (Auto) 0.0, Immature Granulocyte # (Auto) 0.1, Sodium Level 139, Potassium Level 4.5, Chloride Level 107, Carbon Dioxide Level 22, Anion Gap 10, Blood Urea Nitrogen 42H, Creatinine 1.92H, Estimat Glomerular Filtration Rate 27, BUN/Creatinine Ratio 22, Glucose Level 100, Calcium Level 9.3, Magnesium Level 2.2 03/20/23 05:44: Glucometer 91 Microbiology 03/18/23 Gram Stain - Final, Resulted 03/18/23 Wound Culture - Preliminary, Resulted Gram Negative Bacillus 1 Microbiology 03/18/23 Gram Stain - Final, Resulted 03/18/23 Wound Culture - Preliminary, Resulted Gram Negative Bacillus 1 Assessment/Plan/Dx Assessment: 1. R. lateral calf abscess with associated cellulitis 2. Fall with laceration and resulting hemorrhage/hematoma (02-28-23) 3. DM2 (well controlled) 4. CKD stage 3 5. Anemia of renal disease (baseline Hgb 10.0) 6. Lymphedema (chronic obesity related) 7. Moderate intellectual disability Plan: 1. Agree with broad spectrum antibiotics. Preliminary culture with gram negative rods. Targeted oral antibiotics on discharge based on final results (2 week course to start with would be ideal). Plan to continue with iodoform currently (with vac placement planned following thorough debridement of slough). 2. Agree with continuing to hold Plavix in light of drop in Hgb and recent hematoma. [place]. with debridement planned in near future. She does complain of some SOA with ambulation this a.m. Will defer management to primary team. I do suspect this will delay her wound healing. 3. Good control (A1C of 6.5 on 02-18-23). Defer to primary team and continue to monitor. 4. Mild worsening of renal status. Likely related to infection and anemia 5. Defer to primary team. 6. Elevation recommended. We will consider compression as outpatient. Edema impr ann with antibiotics. 7. May complicate compliance. Lives at [place]. Staff will aide in care and Home Health already planned as outpatient for wound vac application when able. TY OCASIO MD Mar 20, 2023 08:47
[2023-03-20] MEDS ORDERED: TROUGH ORDER-PHARMACY XX NR ×2 (09:00→13:00)
[2023-03-20] MEDS: SENNOSIDES 8.6 MG TABLET PO SCH ×2 (09:09→20:41)
[2023-03-20] MEDS: PANTOPRAZOLE 20 MG TABLET PO SCH (09:09)
[2023-03-20] MEDS: DOCUSATE SODIUM 100 MG CAPSULE PO SCH ×2 (09:10→20:41)
--- NOTE | 2023-03-20 09:32 | Progress Note - Hospitalist ---
STEVENJHONY HARRINGTONITE 03/20/23 0932: Subjective HPI/CC On Admission Date Seen by Provider: Mar 20, 2023 Time Seen by Provider: 09:00 Christiana Quezada is a 77yo female who presented to the ED yesterday with R anterior tibial wound that has progressively worsened. About 2.5 weeks ago, Christiana's "leg caught" and she cut her leg on a metal box. Wound care has been seeing her at her home, [place], and were concerned as it has progressively worsened. She describes her pain as an 8/10 that comes and goes which she characterizes as throbbing and burning. The is associated cellulitis accompanying most of the tibial area, stopping before the R lateral malleolus and is contained below the R knee. According to CT LE the wound is "3.2 x 1.2 cm and 6.1 cm craniocaudal".There is serous drainage accompanied. She denied SOB, N/V, diarrhea, chills. This patient has DM, GERD, CK, HTN, and developmental delay.She was started to cephalexin and doxycycline outpatient and was given zosyn and vancomyacin the ED. She was tachypnic, with P>90, and WBC at 13.3 upon arrival with some concern for sepsis, but this seems to have resolved. Lab studies showed elevated WBC count today at 11.1. BUN and Cr are still elevated, likely due to CKD. CT LE findings: 1. Findings concerning for abscess adjacent to the mid right tibia and fibula laterally. This is associated with a soft tissue defect. No radiopaque foreign bodies. 2. No acute fracture or dislocation in the right tibia and fibula Wound Culture Report: Moderate white blood cells No epithelial cells No bacteria seen Surgery was consulted and does not seem to be concerned about an absess. Dr. Ellsworth attempted external debridement feeling some fluctuance on the lateral side with associated drainage with pressure. Wound care does not think the wound is wide enough for a wound vac. Will continue with dressing and IV abx for now. Subjective/Events-last exam Christiana was resting quietly when I visited her this morning. She had no new complaints. Denied N/V, CP, SOB. She denied pain in R leg and says it only hurt when they were changing her dressing. Upon inspection of R leg, there is still significant erythema. Pain upon palpation to lateral side of R leg. There is serous drainage coming from wound into dressing. According to wound care, "The cavity now has evidence of significant necrotic material (slough) and continues to probe nearly the width of her calf (AP) in depth". Planning to continue abx. Wound care recommended wound vac on discharge. WBC is decreasing. Iron studies came back significant for high ferritin. She also has a slight rise in eosinophils. Vitals are stable. Review of Systems General: No Chills, No Night Sweats HEENT: No Head Aches, No Eye Pain Pulmonary: No Dyspnea, No Cough, No Pleuritic Chest Pain Cardiovascular: No: Chest Pain, Palpitations Gastrointestinal: No: Nausea, Vomiting, Abdominal Pain Genitourinary: No Dysuria, No Frequency Musculoskeletal: No: neck pain, shoulder pain 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: No: Incoordination, Confusion Focused Exam Time of Focused Exam: 09:00 Respiratory: No Chest Non Tender, No Lungs Clear; No Accessory Muscle Use, No Respiratory Distress Cardiovascular: Regular Rate, Rhythm, No Edema, No JVD Skin: warm/dry; No ecchymosis, No jaundice Objective Exam Vital Signs Vital Signs Date Time Temp Pulse Resp B/P (MAP) Pulse Ox O2 Delivery O2 Flow Rate FiO2 03/20/23 11:43 36.9 83 16 122/72 (89) 94 Nasal Cannula 2.00 Capillary Refill : Less Than 3 Seconds General Appearance: No Apparent Distress, WD/WN HEENT: No Photophobia, No Scleral Icterus (L), No Scleral Icterus (R) Neck: Non Tender, Supple Respiratory: No Accessory Muscle Use, No Respiratory Distress Cardiovascular: Regular Rate, Rhythm, No Edema Gastrointestinal: Non Tender, Soft Rectal: Deferred Back: No CVA Tenderness, No Vertebral Tenderness Extremity: Calf Tenderness (R LE lateral side of wound), Inflammation (R LE), S welling (R LE) Neurologic/Psychiatric: Alert, Oriented x3 Skin: Erythema (R LE at wound); No Petechia, No Rash Lymphatic: No Adenopathy Results/Procedures Lab Laboratory Tests 03/20/23 05:18 Patient resulted labs reviewed. Imaging: Reviewed Imaging Report Assessment/Plan Assessment and Plan Assess & Plan/Chief Complaint 1. R Leg Wound IV vancomycin PT/OT pain control - morphine, oxycodone hold plavix in case surgery is needed Wound care tetanus shot 2. Chronic Kidney Disease IV fluids, conservative management 3. GERD protonix carafate 4. DM sliding scale insulin 5. Hypertension 6. Hypothyroidism Levothyroxine 7. Developmental Delay Diagnosis/Problems Diagnosis/Problems (1) Cellulitis of right anterior lower leg Status: Acute (2) Wound abscess Status: Acute (3) Chronic kidney disease Status: Chronic Qualifiers: Qualified Codes: N18.4 - Chronic kidney disease, stage 4 (severe) (4) Type 2 diabetes mellitus Status: Chronic Qualifiers: Qualified Codes: E11.69 - Type 2 diabetes mellitus with other specified complication PARISH ELLSWORTH MD 03/20/23 1707: Subjective HPI/CC On Admission Time Seen by Provider: 12:10 Assessment/Plan Assessment and Plan Assess & Plan/Chief Complaint Continue IV antibiotics for wound infection. Surgery and wound care following. Diagnosis/Problems Diagnosis/Problems (1) Wound infection Status: Acute (2) Infected wound Status: Acute (3) Cellulitis of right anterior lower leg Status: Acute (4) Failure of outpatient treatment Status: Acute (5) Type 2 diabetes mellitus Status: Chronic Qualifiers: Qualified Codes: E11.69 - Type 2 diabetes mellitus with other specified complication (6) Wound abscess Status: Acute (7) Chronic kidney disease Status: Chronic Qualifiers: Qualified Codes: N18.4 - Chronic kidney disease, stage 4 (severe) Supervisory-Addendum Brief Verification & Attestation Participated in pt care: history, MDM, physical Personally performed: exam, history, MDM, supervision of care Care discussed with: Medical Student Procedures: n/a A medical student performed and documented this service in my presence. I reviewed and verified all information documented by the medical student and made modifications to such information, when appropriate. I personally performed the physical exam and medical decision making. MICHAEL FLEMING Mar 20, 2023 09:32 PARISH ELLSWORTH MD Mar 20, 2023 17:07
[2023-03-20] MEDS: FLUTICASONE/VILANTEROL 200/25 MCG (7 DOSES) IH SCH (19:39)
[2023-03-20] MEDS ORDERED: VANCOMYCIN 750 MG/NS 250 ML IVPB IV SCH ×2 (20:00)
[2023-03-20] MEDS: MONTELUKAST 10 MG TABLET PO SCH (20:40)
[2023-03-20] MEDS ORDERED: ROSUVASTATIN 20 MG TABLET PO SCH (21:00)
[2023-03-20] MEDS ORDERED: NON-FORMULARY MEDICATION 1 EA EA (Budesonide/Formoterol Fumarate (Symbicort 160-4.5 Mcg In INH SCH (21:00)
[2023-03-21] MEDS: inSUlin ASPART 1 UNIT/0.01 ML (PER UNIT) SC SCH ×2 (06:02→12:14)
[2023-03-21 06:04] LABS: BASOPHILS % (AUTO) 0 % (0-10); EOSINOPHILS # (AUTO) 0.3 10^3/uL (0.0-0.3); EOSINOPHILS % (AUTO) 3 % (0-10); HEMATOCRIT 23 % (35-52); LYMPHOCYTES # (AUTO) 2.1 10^3/uL (1.0-4.0); LYMPHOCYTES % (AUTO) 19 % (12-44); MEAN CORPUSCULAR HEMOGLOBIN 29 pg (25-34); MEAN CORPUSCULAR HGB CONC 31 g/dL (32-36); MEAN CORPUSCULAR VOLUME 95 fL (80-99); MEAN PLATELET VOLUME 8.7 fL (9.0-12.2); MONOCYTES # (AUTO) 0.8 10^3/uL (0.0-1.0); MONOCYTES % (AUTO) 8 % (0-12); NEUTROPHILS # (AUTO) 7.3 10^3/uL (1.8-7.8); NEUTROPHILS % (AUTO) 69 % (42-75); PLATELET COUNT 285 10^3/uL (130-400); WHITE BLOOD COUNT 10.6 10^3/uL (4.3-11.0)
[2023-03-21 06:10] LABS: CALCIUM 9.3 MG/DL (8.5-10.1); CREATININE SERUM 1.83 MG/DL (0.60-1.30); MAGNESIUM 2.2 MG/DL (1.6-2.4); POTASSIUM 4.1 MMOL/L (3.6-5.0)
[2023-03-21] MEDS: PIPERACILLIN/Tazobactam 4.5 GM in NS (IVPB) 100 ML 100 ML IV SCH ×2 (06:11→12:27)
[2023-03-21] MEDS: SUCRALFATE 1 GM TABLET PO SCH ×2 (06:11→12:27)
[2023-03-21] MEDS: LEVOTHYROXINE 88 MCG TABLET PO SCH (06:11)
[2023-03-21] MEDS: CATHETER FLUSH 10 ML SYR IVP SCH ×2 (06:12→14:45)
[2023-03-21] MEDS: MAGNESIUM 1 GM/100 ML IVPB 100 ML IV SCH (06:34)
[2023-03-21] MEDS: POTASSIUM BICARB 20 MEQ effervescent TABLET PO SCH (06:34)
[2023-03-21] MEDS: POTASSIUM CL 10MEQ/50ML IVPB 50 ML IV SCH (06:34)
[2023-03-21] MEDS: POTASSIUM CHLORIDE 20 MEQ TABLET PO SCH (06:35)
[2023-03-21 07:55] VITALS: BP 140/63
--- NOTE | 2023-03-21 08:34 | Progress Note - Surgery ---
JASMYN PETERSON 03/21/23 0834: Subjective Date Seen by a Provider: Mar 21, 2023 Time Seen by a Provider: 08:25 Subjective/Events-last exam Christiana Quezada was seen this morning lying in bed. She reports feeling well and sleeping, eating and ambulating to use the bathroom. Her leg is back tender paper machine to touch and dressing manipulation. Review of Systems General: No Chills, No Night Sweats HEENT: No Head Aches, No Visual Changes Pulmonary: No Dyspnea, No Cough Cardiovascular: No: Chest Pain, Palpitations Gastrointestinal: No: Nausea, Vomiting, Abdominal Pain Genitourinary: No Dysuria, No Frequency Musculoskeletal: leg pain (R LE pain with manipulation of the leg and anterior lower leg wound dressing) Focused Exam Time of Focused Exam: 09:00 Objective Exam Vital Signs Date Time Temp Pulse Resp B/P (MAP) Pulse Ox O2 Delivery O2 Flow Rate FiO2 03/21/23 07:55 37.1 85 18 140/63 (88) 94 Nasal Cannula 2.00 03/21/23 03:57 36.9 82 20 91 Nasal Cannula 2.00 03/20/23 23:35 36.6 85 20 125/78 (94) 96 Nasal Cannula 2.00 03/20/23 23:27 36.7 80 158/72 (100) 95 03/20/23 20:00 91 Nasal Cannula 2.00 03/20/23 19:37 37.3 86 20 128/61 (83) 91 Nasal Cannula 2.00 03/20/23 16:09 37.2 85 20 119/58 (78) 93 Nasal Cannula 2.00 03/20/23 11:43 36.9 83 16 122/72 (89) 94 Nasal Cannula 2.00 03/20/23 09:06 96 Nasal Cannula 2.00 I & O 03/21/23 07:00 Intake Total 380 ml Output Total 1240 ml Balance -860 ml Capillary Refill : Less Than 3 Seconds General Appearance: No Apparent Distress, Obese HEENT: PERRL/EOMI, Moist Mucous Membranes Neck: Non Tender, Supple Respiratory: Lungs Clear, Normal Breath Sounds, No Accessory Muscle Use, No Respiratory Distress Cardiovascular: Regular Rate, Rhythm, No Edema, No Murmur Gastrointestinal: non tender, soft, no organomegaly Extremity: Other (open wound on R lower anterior leg 3cm x 2cm, surrounding erythema extending upward toward her knee, down to her ankle and around the leg both medially and laterally, approximately 14cm x 14cm; slight improvement from yesterday. The wound is packed and no fluid is seen draining from the wound.) Neurologic/Psychiatric: Alert, Oriented x3 Results Lab Laboratory Tests 03/20/23 11:38: Glucometer 111H 03/20/23 13:13: Vancomycin Level Trough 19.7 03/20/23 15:42: Glucometer 131H 03/20/23 19:58: Glucometer 130H 03/21/23 05:38: White Blood Count 10.6, Red Blood Count 2.38L, Hemoglobin 7.0L, Hematocrit 23L, Mean Corpuscular Volume 95, Mean Corpuscular Hemoglobin 29, Mean Corpuscular Hemoglobin Concent 31L, Red Cell Distribution Width 13.9, Platelet Count 285, Mean Platelet Volume 8.7L, Immature Granulocyte % (Auto) 1, Neutrophils (%) (Auto) 69, Lymphocytes (%) (Auto) 19, Monocytes (%) (Auto) 8, Eosinophils (%) (Auto) 3, Basophils (%) (Auto) 0, Neutrophils # (Auto) 7.3, Lymphocytes # (Auto) 2.1, Monocytes # (Auto) 0.8, Eosinophils # (Auto) 0.3, Basophils # (Auto) 0.0, Immature Granulocyte # (Auto) 0.1, Sodium Level 141, Potassium Level 4.1, Chloride Level 107, Carbon Dioxide Level 22, Anion Gap 12, Blood Urea Nitrogen 37H, Creatinine 1.83H, Estimat Glomerular Filtration Rate 28, BUN/Creatinine Ratio 20, Glucose Level 113H, Calcium Level 9.3, Magnesium Level 2.2 03/21/23 05:59: Glucometer 112H Microbiology 03/18/23 Gram Stain - Final, Resulted 03/18/23 Wound Culture - Preliminary, Resulted Enterobacter cloacae complex Assessment/Plan Assessment/Plan Assessment/Plan Right lower extremity - open wound with cellulitis coagulopathy developmental delay WBC is within normal limits again today. The would culture came back as Enterobacter cloacae complex which is covered by current IV Abx. Continue IV fluids and IV Abx, continue to hold Plavix in case patient needs surgery. Plan for outpatient wound VAC. GUILLAUME JUAREZ DO 03/21/23 1117: Subjective Time Seen by a Provider: 10:41 Subjective/Events-last exam Pt seen and examined, no changes and no new complaints. Review of Systems Pulmonary: No Dyspnea, No Cough Cardiovascular: No: Chest Pain, Palpitations Gastrointestinal: No: Nausea, Vomiting, Abdominal Pain Musculoskeletal: leg pain (R LE pain with manipulation of the leg and anterior lower leg wound dressing) Objective Exam General Appearance: No Apparent Distress, Obese HEENT: PERRL/EOMI Respiratory: Lungs Clear, Normal Breath Sounds, No Accessory Muscle Use, No Respiratory Distress Cardiovascular: Regular Rate, Rhythm, No Murmur Gastrointestinal: non tender, soft, no organomegaly Extremity: Other (open wound on R lower anterior leg 3cm x 2cm, surrounding erythema appears smaller than yesterday ) Assessment/Plan Assessment/Plan Assessment/Plan Right lower extremity - open wound with cellulitis coagulopathy developmental delay WBC is within normal limits again today. The would culture came back as Enterobacter cloacae complex which is covered by current IV Abx. Ok to go home and start on oral Abx, can probably restart Plavix. Plan for outpatient wound VAC. Supervisory-Addendum Brief Verification & Attestation Participated in pt care: history, MDM, physical Personally performed: exam, history, MDM, supervision of care Care discussed with: Medical Student Procedures: n/a Verification and Attestation of Medical Student E/M Service A medical student performed and documented this service. I then reviewed and verified all information documented by the medical student and made modifications to such information, when appropriate. I personally performed a physical exam, medical decision making and then discussed any differences between the notes and made revisions as necessary to create one note. Guillaume Juarez , 03/21/23 , 11:17 JASMYN PETERSON Mar 21, 2023 08:34 GUILLAUME JUAREZ DO Mar 21, 2023 11:17
[2023-03-21] MEDS: DOCUSATE SODIUM 100 MG CAPSULE PO SCH (08:55)
[2023-03-21] MEDS: SENNOSIDES 8.6 MG TABLET PO SCH (08:55)
[2023-03-21] MEDS: PANTOPRAZOLE 20 MG TABLET PO SCH (08:55)
--- NOTE | 2023-03-21 09:04 | Progress Note - Hospitalist ---
Subjective HPI/CC On Admission Date Seen by Provider: Mar 21, 2023 Time Seen by Provider: 08:40 Christiana Quezada is a 77yo female who presented to the ED yesterday with R anterior tibial wound that has progressively worsened. About 2.5 weeks ago, Christiana's "leg caught" and she cut her leg on a metal box. Wound care has been seeing her at her home, [place], and were concerned as it has progressively worsened. She describes her pain as an 8/10 that comes and goes which she characterizes as throbbing and burning. The is associated cellulitis accompanying most of the tibial area, stopping before the R lateral malleolus and is contained below the R knee. According to CT LE the wound is "3.2 x 1.2 cm and 6.1 cm craniocaudal".There is serous drainage accompanied. She denied SOB, N/V, diarrhea, chills. This patient has DM, GERD, CK, HTN, and developmental delay.She was started to cephalexin and doxycycline outpatient and was given zosyn and vancomyacin the ED. She was tachypnic, with P>90, and WBC at 13.3 upon arrival with some concern for sepsis, but this seems to have resolved. Lab studies showed elevated WBC count today at 11.1. BUN and Cr are still elevated, likely due to CKD. CT LE findings: 1. Findings concerning for abscess adjacent to the mid right tibia and fibula laterally. This is associated with a soft tissue defect. No radiopaque foreign bodies. 2. No acute fracture or dislocation in the right tibia and fibula Wound Culture Report: Moderate white blood cells No epithelial cells No bacteria seen Surgery was consulted and does not seem to be concerned about an absess. Dr. Paredes attempted external debridement feeling some fluctuance on the lateral side with associated drainage with pressure. Wound care does not think the wound is wide enough for a wound vac. Will continue with dressing and IV abx for now. Subjective/Events-last exam Christiana was lying in bed and pleasant this morning. She is eating and sleeping well. No new SOB, N/V, diarrhea. She has stated that she has some chest pain on exertion. Sometimes she has chest pain at rest. Her R lower leg at site of wound is still sore. She rates it a constant 8/10. Wound is less erythematous at margins. Seems to be slightly more erythematous at wound edges. Draining blood. Wound culture came back positive for enterobacter cloacae complex. Covered by current abx. Will change to Levoquin on DC. Outpatient debridement planned per wound care. WBC stable. Review of Systems General: No Chills, No Night Sweats HEENT: No Head Aches, No Visual Changes, No Eye Pain Pulmonary: No Dyspnea, No Cough, No Pleuritic Chest Pain Cardiovascular: Chest Pain, Edema (1+); No: Palpitations Gastrointestinal: No: Nausea, Vomiting, Abdominal Pain, Diarrhea Genitourinary: No Dysuria, No Frequency Musculoskeletal: No: neck pain, shoulder pain 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: No: Weakness, Numbness, Incoordination Focused Exam Time of Focused Exam: 09:00 Respiratory: Normal Breath Sounds, No Accessory Muscle Use, No Respiratory Distress Cardiovascular: Regular Rate, Rhythm, No JVD Skin: warm/dry; No ecchymosis, No jaundice; other (R LE open wound) Objective Exam Vital Signs Vital Signs Date Time Temp Pulse Resp B/P (MAP) Pulse Ox O2 Delivery O2 Flow Rate FiO2 03/21/23 11:34 36.2 78 111/56 (74) Nasal Cannula 2.00 03/21/23 09:53 96 03/21/23 07:55 18 Capillary Refill : Less Than 3 Seconds General Appearance: No Apparent Distress, WD/WN HEENT: No Photophobia, No Scleral Icterus (L), No Scleral Icterus (R) Neck: Non Tender, Supple Respiratory: No Accessory Muscle Use, No Respiratory Distress Cardiovascular: Regular Rate, Rhythm, No JVD Gastrointestinal: Non Tender, Soft; No Distended, No Guarding; Hernia (umbilical) Rectal: Deferred Back: No CVA Tenderness, No Vertebral Tenderness Extremity: Calf Tenderness (due to open wound), Inflammation, Swelling, Other (erythema) Neurologic/Psychiatric: Alert, Oriented x3 Skin: Warm/Dry; No Diaphoresis, No Ecchymosis; Erythema (R LE ); No Jaundice Lymphatic: No Adenopathy Results/Procedures Lab Laboratory Tests 03/21/23 05:38 Patient resulted labs reviewed. Imaging: Reviewed Imaging Report Assessment/Plan Assessment and Plan Assess & Plan/Chief Complaint 1. R Leg Wound IV vancomycin, IV zosyn PT/OT pain control - morphine, oxycodone hold plavix in case surgery is needed Wound care tetanus shot 2. Chronic Kidney Disease IV fluids, conservative management 3.Chest Pain EKG Troponin BNP 4. GERD protonix carafate 5. DM sliding scale insulin 6. Hypertension 7. Hypothyroidism Levothyroxine 8. Developmental Delay Diagnosis/Problems Diagnosis/Problems (1) Cellulitis of right anterior lower leg Status: Acute (2) Wound abscess Status: Acute (3) Chronic kidney disease Status: Chronic Qualifiers: Qualified Codes: N18.4 - Chronic kidney disease, stage 4 (severe) (4) Type 2 diabetes mellitus Status: Chronic Qualifiers: Qualified Codes: E11.69 - Type 2 diabetes mellitus with other specified complication (5) Chest pain/Rule out ACS MICHAEL FLEMING Mar 21, 2023 09:04
[2023-03-21] MEDS: FLUTICASONE/VILANTEROL 200/25 MCG (7 DOSES) IH SCH (09:53)
[2023-03-21 11:34] VITALS: BP 111/56
[2023-03-21] MEDS ORDERED: LEVO-55 PO (13:00)
--- NOTE | 2023-03-21 17:46 | Discharge Summary ---
Discharge Summary Hospital Course Problems/Dx: (1) Cellulitis of right anterior lower leg Status: Acute (2) Wound abscess Status: Acute (3) Chronic kidney disease Status: Chronic Qualifiers: Qualified Codes: N18.4 - Chronic kidney disease, stage 4 (severe) (4) Type 2 diabetes mellitus Status: Chronic Qualifiers: Qualified Codes: E11.69 - Type 2 diabetes mellitus with other specified complication (5) Failure of outpatient treatment Status: Acute Hospital Course Date of Admission: Mar 18, 2023 at 15:28 Admission Diagnosis : Cellulitis and abscess Family Physician/Provider: Shun Hernandes MD Date of Discharge: 03/21/23 Discharge Diagnosis: Cellulitis and abscess Hospital Course: Christiana Quezada is a 77 year old female with T2DM, CKD 4, who presented with right lower extremity cellulitis and abscess. She has been following with wound care. She has been on Doxycycline and Keflex but has worsened despite this. She was started on IV antibotics with Vanc and Zosyn. She had a wound culture which grew Enterobacter cloaceae complex. She was transitioned to oral Levaquin and discharged home in stable condition. She will follow up with wound care next week. They will consider outpatient debridement at that time. Labs and Pending Lab Test: Laboratory Tests 03/20/23 19:58: Glucometer 130H 03/21/23 05:38: White Blood Count 10.6, Red Blood Count 2.38L, Hemoglobin 7.0L, Hematocrit 23L, Mean Corpuscular Volume 95, Mean Corpuscular Hemoglobin 29, Mean Corpuscular Hemoglobin Concent 31L, Red Cell Distribution Width 13.9, Platelet Count 285, Mean Platelet Volume 8.7L, Immature Granulocyte % (Auto) 1, Neutrophils (%) (Auto) 69, Lymphocytes (%) (Auto) 19, Monocytes (%) (Auto) 8, Eosinophils (%) (Auto) 3, Basophils (%) (Auto) 0, Neutrophils # (Auto) 7.3, Lymphocytes # (Auto) 2.1, Monocytes # (Auto) 0.8, Eosinophils # (Auto) 0.3, Basophils # (Auto) 0.0, Immature Granulocyte # (Auto) 0.1, Sodium Level 141, Potassium Level 4.1, Chloride Level 107, Carbon Dioxide Level 22, Anion Gap 12, Blood Urea Nitrogen 37H, Creatinine 1.83H, Estimat Glomerular Filtration Rate 28, BUN/Creatinine Ratio 20, Glucose Level 113H, Calcium Level 9.3, Magnesium Level 2.2 03/21/23 05:59: Glucometer 112H 03/21/23 11:19: Glucometer 147H Microbiology 03/18/23 Gram Stain - Final, Complete 03/18/23 Wound Culture - Final, Complete Enterobacter cloacae complex Home Meds Active Levofloxacin 500 Mg Tablet 500 Mg PO DAILY 7 Days Reported Scot-Tussin Dm Liquid (Chlorpheniramine/Dextromethorp) 2 Mg-15 Mg/5 Ml Liquid 5 Ml PO Q6H PRN Pantoprazole Sodium 20 Mg Tablet.dr 20 Mg PO HS Losartan Potassium 25 Mg Tablet 25 Mg PO DAILY Clopidogrel (Clopidogrel Bisulfate) 75 Mg Tablet 75 Mg PO DAILY Amlodipine Besylate 2.5 Mg Tablet 2.5 Mg PO DAILY Glipizide 10 Mg Tablet 10 Mg PO BID Tylenol (Acetaminophen) 325 Mg Capsule 650 Mg PO Q12H PRN Acetaminophen 500 Mg Tablet 1,000 Mg PO BID Montelukast Sodium 10 Mg Tablet 10 Mg PO HS Rosuvastatin Calcium 20 Mg Tablet 20 Mg PO HS Guaifenesin-Dm 100-10 mg/5 ml (Guaifenesin/Dextromethorphan) 5 Ml Liquid 10 Ml PO Q4H PRN Ondansetron Odt (Ondansetron) 4 Mg Tab.rapdis 4 Mg PO Q8H PRN Imodium A-D (Loperamide HCl) 2 Mg Capsule 2 Mg PO Q6H PRN GIVE 1 CAPSULE AFTER EACH LOOSE STOOL Furosemide 20 Mg Tablet 20 Mg PO ,,, Iprat-Albut 0.5-3(2.5) mg/3 ml (Ipratropium/Albuterol Sulfate) 3 Ml Ampul.neb 3 Ml IH QID Cough Drops (Menthol) 5 Mg Lozenge 5 Mg MM EVERY 1 HOUR PRN Tetrahydrozoline HCl 15 Ml Drops 2 Drops OU Q6H PRN Multivitamins with Minerals (Multivitamin with Minerals) 1 Each Tablet 1 Each PO DAILY Calcium Carbonate 500 Mg Tablet 1,000 Mg PO Q4H PRN Symbicort 160-4.5 Mcg Inhaler (Budesonide/Formoterol Fumarate) 10.2 Gm Hfa.aer.ad 2 Puff INH BID RINSE MOUTH WITH WATER AND SPIT OUT AFTER EACH USE Miralax (Polyethylene Glycol 3350) 17 Gm Powd.pack 17 Gm PO DAILY PRN Milk of Magnesia (Magnesium Hydroxide) 400 Mg/5 Ml Oral.susp 30 Ml PO Q12H PRN Meclizine HCl 25 Mg Tablet 25 Mg PO Q8H PRN Flonase Allergy Relief (Fluticasone Propionate) 9.9 Ml Grover.susp 1 Grover NSEACH DAILY Benadryl Allergy (Diphenhydramine HCl) 25 Mg Tablet 25-50 Mg PO Q6H PRN D3-2000 (Cholecalciferol (Vitamin D3)) 50 Mcg Capsule 50 Mcg PO DAILY Ventolin Hfa (Albuterol Sulfate) 1 Puff Puff 2 Puff INH Q6H PRN Carafate (Sucralfate) 1 Gram Tablet 1 Gm PO 0730,1800 BEFORE MEALS Magnesium Oxide 400 Mg Tablet 400 Mg PO DAILY Fish Oil 1,000 mg Softgel (Aurora-3/Dha/Epa/Fish Oil) 1 Each Capsule 1 Each PO DAILY Iron (Ferrous Sulfate) 325 Mg Tablet 325 Mg PO BID Docusate Sodium 100 Mg Capsule 100 Mg PO BID Synthroid (Levothyroxine Sodium) 88 Mcg Tablet 88 Mcg PO DAILY Assessment/Pt Instructions See instructions Discharge Planning: >30 minutes discharge planning Discharge Instructions Discharge Diet: ADA Diet Activity as Tolerated: Yes Consultations Wound care, surgery Discharge Physical Examination Vital Signs Vital Signs Date Time Temp Pulse Resp B/P (MAP) Pulse Ox O2 Delivery O2 Flow Rate FiO2 03/21/23 16:26 03/21/23 11:34 36.2 78 Nasal Cannula 2.00 03/21/23 09:53 96 03/21/23 07:55 18 General Appearance: No Apparent Distress, Obese Respiratory: Lungs Clear, No Respiratory Distress Cardiovascular: Regular Rate, Rhythm, No Murmur Gastrointestinal: Normal Bowel Sounds, Soft Extremity: Inflammation, Swelling Skin: Erythema Neurologic/Psychiatric: Alert, Normal Mood/Affect Allergies: Coded Allergies: Iodinated Contrast Media (Unverified Adverse Reaction, Unknown, 02/24/20) NSAIDS (Non-Steroidal Anti-Inflamma (Unverified Adverse Reaction, Unknown, 02/24/20) glimepiride (Unverified Adverse Reaction, Unknown, 02/24/20) Copy Copies To 1: TY OCASIO MD Copies To 2: SHUN HERNANDES MD Discharge Summary Date of Admission Mar 18, 2023 at 15:28 Date of Discharge Mar 21, 2023 at 16:15 Discharge Date: Mar 21, 2023 Discharge Time: 16:15 Admission Diagnosis Cellulitis and abscess of right lower extremity Consults/Procedures Consulations Wound care, surgery Discharge Diagnosis (1) Cellulitis of right anterior lower leg Status: Acute (2) Wound abscess Status: Acute (3) Chronic kidney disease Status: Chronic Qualifiers: Qualified Codes: N18.4 - Chronic kidney disease, stage 4 (severe) (4) Type 2 diabetes mellitus Status: Chronic Qualifiers: Qualified Codes: E11.69 - Type 2 diabetes mellitus with other specified complication (5) Failure of outpatient treatment Status: Acute PARISH ELLSWORTH MD Mar 21, 2023 17:41
== END 2023-03-21 16:15 | disposition home or self-care (01) | DRG 603 ==
LOC: EDUNIT# 12:39 → ER 12:41 → 4TH 15:28
PROVIDERS: ADMIT Internal Medicine; ATTEND Internal Medicine
DX: L03.115 Cellulitis of right lower limb (principal); N18.4 Chronic kidney disease, stage 4 (severe); D68.9 Coagulation defect, unspecified; E11.22 Type 2 diabetes mellitus with diabetic chronic kidney disease; L02.415 Cutaneous abscess of right lower limb; K21.9 Gastro-esophageal reflux disease without esophagitis; R62.50 Unspecified lack of expected normal physiological development in childhood; E03.9 Hypothyroidism, unspecified; R07.9 Chest pain, unspecified; D63.1 Anemia in chronic kidney disease; I89.0 Lymphedema, not elsewhere classified; J45.909 Unspecified asthma, uncomplicated; I25.10 Atherosclerotic heart disease of native coronary artery without angina pectoris; E78.00 Pure hypercholesterolemia, unspecified; I12.9 Hypertensive chronic kidney disease with stage 1 through stage 4 chronic kidney disease, or unspecified chronic kidney disease; M19.90 Unspecified osteoarthritis, unspecified site; E66.9 Obesity, unspecified
CPT/HCPCS: 36415; 73700; 80048; 80053; 80202; 82607; 82728; 82746; 82947; 83540; 83550; 83735; 85025; 87070; 87077; 87186; 87205; 94640; 94760; 96361; 96365; 96367

== ENCOUNTER → 2023-03-18 | Outpatient (CLI) | payer MEDICARE, MEDICAID ==
[~2023-03-18] MED LIST changes: +LEVO-55 PO
== END ==
LOC: WOUNDCARE 12:25
PROVIDERS: ATTEND Family Medicine
DX: S81.811A Laceration without foreign body, right lower leg, initial encounter (principal); I89.0 Lymphedema, not elsewhere classified; L03.115 Cellulitis of right lower limb; E44.0 Moderate protein-calorie malnutrition; E66.01 Morbid (severe) obesity due to excess calories; D46.4 Refractory anemia, unspecified; E11.22 Type 2 diabetes mellitus with diabetic chronic kidney disease; N18.30 Chronic kidney disease, stage 3 unspecified; R29.6 Repeated falls; E11.52 Type 2 diabetes mellitus with diabetic peripheral angiopathy with gangrene
CPT/HCPCS: A6212; G0463; 99212

== ENCOUNTER → 2023-03-24 | Outpatient (CLI) | payer MEDICARE, MEDICAID ==
[~2023-03-24] MED LIST changes: +AMLO2.5T4 PO; +CLOP75TA28 PO; +HYDR-3817 PO; +LEVO-55 PO; +LOSA25TA41 PO; +PANT20TA18 PO; +[UNRECOGNIZED DRUG - CODE] PO
[2023-03-24 12:06] LABS: BASOPHILS % (AUTO) 0 % (0-10); EOSINOPHILS # (AUTO) 0.3 10^3/uL (0.0-0.3); EOSINOPHILS % (AUTO) 3 % (0-10); HEMATOCRIT 28 % (35-52); HEMOGLOBIN 8.2 g/dL (11.5-16.0); LYMPHOCYTES # (AUTO) 2.3 10^3/uL (1.0-4.0); LYMPHOCYTES % (AUTO) 20 % (12-44); MEAN CORPUSCULAR HEMOGLOBIN 29 pg (25-34); MEAN CORPUSCULAR HGB CONC 30 g/dL (32-36); MEAN CORPUSCULAR VOLUME 97 fL (80-99); MEAN PLATELET VOLUME 8.9 fL (9.0-12.2); MONOCYTES # (AUTO) 0.9 10^3/uL (0.0-1.0); MONOCYTES % (AUTO) 8 % (0-12); NEUTROPHILS % (AUTO) 69 % (42-75); PLATELET COUNT 344 10^3/uL (130-400); WHITE BLOOD COUNT 11.6 10^3/uL (4.3-11.0)
[2023-03-24 12:24] LABS: ALBUMIN 3.9 GM/DL (3.2-4.5); BILIRUBIN,TOTAL 0.2 MG/DL (0.1-1.0); CALCIUM 9.8 MG/DL (8.5-10.1); CREATININE SERUM 1.53 MG/DL (0.60-1.30); POTASSIUM 3.8 MMOL/L (3.6-5.0); TOTAL PROTEIN 8.3 GM/DL (6.4-8.2)
[2023-03-24 12:38] LABS: ERYTHROCYTE SEDIMENTATION RATE > 140 MM/HR (0-30)
== END ==
LOC: WOUNDCARE 11:11
PROVIDERS: ATTEND Family Medicine
DX: S81.811A Laceration without foreign body, right lower leg, initial encounter (principal); L03.115 Cellulitis of right lower limb; I89.0 Lymphedema, not elsewhere classified; E66.01 Morbid (severe) obesity due to excess calories; F71 Moderate intellectual disabilities; E11.22 Type 2 diabetes mellitus with diabetic chronic kidney disease; N18.30 Chronic kidney disease, stage 3 unspecified; L02.415 Cutaneous abscess of right lower limb; D50.0 Iron deficiency anemia secondary to blood loss (chronic); R29.6 Repeated falls; E11.52 Type 2 diabetes mellitus with diabetic peripheral angiopathy with gangrene
CPT/HCPCS: 80053; 85025; 85652; 86141; A6212; A6266; G0463; 36415; 99213

== ENCOUNTER → 2023-03-25 | Outpatient (CLI) | payer MEDICARE, MEDICAID ==
[~2023-03-25] VITALS: Ht 152.4 cm; Wt 86.4 kg
== END | disposition home or self-care (01) ==
LOC: PREOP 12:52
PROVIDERS: ATTEND Surgery
DX: Z01.818 Encounter for other preprocedural examination (principal)

== ENCOUNTER 2023-03-26 13:15 | Day surgery (SDC) | payer MEDICARE, MEDICAID ==
[2023-03-26] VITALS (11 sets, daily range): BP systolic 120–140; BP diastolic 48–70
[~2023-03-26] VITALS: Ht 190 cm; Wt 86.4 kg
[~2023-03-26 13:15] MED LIST changes: -GLIP5TAB13 PO; +GLIP5TAB23 PO; -HYDR-3817 PO
[2023-03-26] MEDS ORDERED: ceFAZolin INJECTION 2,000 MG ONE (14:15)
[2023-03-26] MEDS ORDERED: LIDOCAINE PF 2% 5 ML VIAL ONE (14:16)
[2023-03-26] MEDS ORDERED: SEVOFLURANE (ULTANE) 15 ML INHAL SOLN ONE (14:16)
[2023-03-26] MEDS ORDERED: proPOfol INJECTION 200 MG/20 ML VIAL IV ONE (14:16)
[2023-03-26] MEDS ORDERED: fentaNYL INJECTION 100 MCG/2 ML VIAL ONE (14:16)
[2023-03-26] MEDS ORDERED: ONDANSETRON INJECTION 4 MG/2 ML (SDV) ONE (14:16)
[2023-03-26] MEDS ORDERED: LACTATED RINGERS 1,000 ML 1,000 ML IV PRN (14:30)
[2023-03-26] MEDS ORDERED: ceFAZolin INJECTION 2,000 MG in NS (IVPB) 50 ML 50 ML IV ONE (14:30)
--- NOTE | 2023-03-26 14:43 | Progress Note-Pre Operative ---
Pre-Operative Progress Note Date of Available H&P: Mar 26, 2023 Date H&P Reviewed: Mar 26, 2023 Time H&P Reviewed: 14:40 History & Physical: No changes noted Pre-Operative Diagnosis: right lower extremity abscess OSCAR ACOSTA MD Mar 26, 2023 14:43
[2023-03-26] MEDS ORDERED: oxyCODONE/ACETAMINOPHEN 5/325MG TABLET PO PRN (14:45)
[2023-03-26] MEDS ORDERED: HYDR-3817 PO (14:45)
[2023-03-26] MEDS ORDERED: ACETAMINOPHEN 325 MG TABLET PO PRN (14:45)
[2023-03-26] MEDS ORDERED: morphine INJ 10 MG/ML 1ML (SYR OR VIAL) IVP PRN ×2 (14:45)
[2023-03-26] MEDS ORDERED: ONDANSETRON INJECTION 4 MG/2 ML (SDV) IVP PRN ×2 (14:45→16:45)
--- NOTE | 2023-03-26 14:46 | Discharge Inst-Surgical ---
D/C Lap Instructions-KIDKacey New, Converted, or Re-Newed RX: RX on Chart Follow Up Appt in 1 week Activity as tolerated Regular Diet Symptoms to Report: Fever over 101 degree F, Nausea/Vomiting Infection Signs and Symptoms to report: Increased redness, Foul odor of wound, Increased drainage Bathing instructions: May shower Operative Area Clean/Dry; Keep incision clean/dry If any problems/questions: Contact your physician or go to Emergency Room OSCAR ACOSTA MD Mar 26, 2023 14:46
[2023-03-26] MEDS ORDERED: LIDOCAINE 2% w/EPI 1:100,000 20 ML VIAL ONE (16:04)
[2023-03-26] MEDS ORDERED: PHENYLEPHRINE 100 MCG/ML 10 ML (ANESTHESIA) SYR ONE (16:28)
--- NOTE | 2023-03-26 16:39 | Anesthesia-General Post-Op ---
General Patient Condition Mental Status/LOC: Same as Preop Cardiovascular: Satisfactory Nausea/Vomiting: Absent Respiratory: Satisfactory Pain: Controlled Complications: Absent Post Op Complications Complications None Follow Up Care/Instructions Patient Instructions None needed. Anesthesia/Patient Condition Patient Condition Patient is doing well, no complaints, stable vital signs, no apparent adverse anesthesia problems. No complications reported per nursing. KALLI CORONEL CRNA Mar 26, 2023 16:39
[2023-03-26] MEDS ORDERED: morphine INJ 10 MG/ML 1ML (SYR OR VIAL) IVP ONE (16:45)
[2023-03-26] MEDS ORDERED: fentaNYL INJECTION 100 MCG/2 ML VIAL IVP ONE (16:45)
[2023-03-26] MEDS ORDERED: morphine INJ 10 MG/ML 1ML (SYR OR VIAL) ONE (16:48)
--- NOTE | 2023-03-26 16:55 | Progress Note-Post Operative ---
Post-Operative Progess Note Surgeon (s)/Workflow Developer (s) Surgeon OSCAR ACOSTA MD Workflow Developer: none Pre-Operative Diagnosis right lower extremity abscess Post-Operative Diagnosis right lower extremity necrotizing soft tissue infection. Procedure & Operative Findings Date of Procedure 03/26/23 Procedure Performed/Findings debridement right lateral salcedo skin, subcutaneous, fascia 12x8cm. Anesthesia Type general LMA with local Estimated Blood Loss Estimated blood loss (mL): minimal Specimens/Packing Specimens Removed right leg skin, SQ, fascia OSCAR ACOSTA MD Mar 26, 2023 16:55
[2023-03-26] MEDS ORDERED: HYDROcodone/ACETAMINOPHEN 5 MG/325 MG TABLET ONE (18:12)
[2023-03-26] MEDS ORDERED: oxyCODONE/ACETAMINOPHEN 5/325MG TABLET ONE (18:17)
--- NOTE | 2023-03-27 02:09 | OPERATIVE REPORT ---
DATE OF SERVICE: 03/26/2023 ATTENDING PRIMARY CARE PHYSICIAN: Eliud Hernandes MD PREOPERATIVE DIAGNOSIS: Abscess cellulitis, left lateral right salcedo. POSTOPERATIVE DIAGNOSES: Necrotizing soft tissue infection, right lateral salcedo. PROCEDURE: Debridement, right lateral salcedo of the skin, subcutaneous tissue and fascia, 12 x 8 cm in dimensions. SURGEON: Oscar Malone MD ANESTHESIA: General laryngeal mask airway with local. ESTIMATED BLOOD LOSS: Minimal. FINDINGS: Tracking loss of integrity of the subcutaneous tissue and the fascia from the previous incision and drainage site tracking both laterally as well as superiorly and inferiorly. DISPOSITION: The patient tolerated the procedure well. INDICATIONS: The patient is a 77-year-old female with history of diabetes as well as other medical problems. She fell from a same level and hit something sharp on her right lower extremity causing a laceration. She was seen in the emergency department and underwent a closure of the wound. She then developed redness, swelling and opening of the wound. There was purulence at the time. She was placed on IV antibiotics as well as oral; however, her caregiver states that the wound became more red, raised, erythematous. She was seen by wound care and a CT scan performed, which did show inflammation, edema as well as a significant size abscess in the lateral portion of the right salcedo. The patient also reports increased pain within the region. She does not report any fever, no chills. DESCRIPTION OF PROCEDURE: The right lower extremity was prepped and draped in standard surgical fashion. A 2% lidocaine with epinephrine was then used to anesthetize the overlying skin around the previous abscess site. The skin incision was then extended superiorly and inferiorly. We then proceeded with blunt dissection and there was loss of integrity of the subcutaneous fat as well as the fascia likely consistent with a necrotizing soft tissue infection. We then proceeded with a blunt dissection until tissue integrity was identified. We then proceeded with debridement of the skin, subcutaneous tissue and the fascia of the devitalized tissue using a 10 blade as well as electrocautery with visualization of good hemostasis. The dimensions of the debridement were 12 x 8 cm. Good hemostasis was observed with electrocautery. Wound was then irrigated and then packed with an iodine-soaked Kerlix, followed by 4 x 4 gauze, ABD pad and Coban. The patient tolerated the procedure well. She will be instructed to continue with b.i.d. wet-to-dry dressing changes. She will also continue with her current oral antibiotic regimen. She also does have an appointment to see wound care early next week and our recommendation is to proceed with placement of a wound VAC to allow for closure of the wound in a more timely fashion. Job ID: [id number] DocumentID: [id number] Dictated Date: 03/26/2023 17:18:24 Sausage Wrapper Date: 03/27/2023 02:07:00 Dictated By: OSCAR MALONE MD
== END 2023-03-26 18:50 | disposition home or self-care (01) ==
LOC: SDC 13:15
PROVIDERS: ATTEND Surgery
DX: M79.89 Other specified soft tissue disorders (principal); L03.115 Cellulitis of right lower limb; L02.415 Cutaneous abscess of right lower limb; Z28.310 Unvaccinated for COVID-19; Z87.891 Personal history of nicotine dependence
CPT/HCPCS: 82947; 87070; 87075; 87077; 87081; 87186; 87205

== ENCOUNTER → 2023-03-28 | Outpatient (CLI) | payer MEDICARE, MEDICAID ==
[~2023-03-28] MED LIST changes: +HYDR-3817 PO
[2023-03-28 10:46] LABS: BASOPHILS % (AUTO) 0 % (0-10); EOSINOPHILS # (AUTO) 0.1 10^3/uL (0.0-0.3); EOSINOPHILS % (AUTO) 1 % (0-10); HEMATOCRIT 25 % (35-52); HEMOGLOBIN 7.4 g/dL (11.5-16.0); LYMPHOCYTES # (AUTO) 1.3 10^3/uL (1.0-4.0); LYMPHOCYTES % (AUTO) 9 % (12-44); MEAN CORPUSCULAR HEMOGLOBIN 29 pg (25-34); MEAN CORPUSCULAR HGB CONC 30 g/dL (32-36); MEAN CORPUSCULAR VOLUME 97 fL (80-99); MEAN PLATELET VOLUME 9.5 fL (9.0-12.2); MONOCYTES % (AUTO) 7 % (0-12); NEUTROPHILS # (AUTO) 11.9 10^3/uL (1.8-7.8); NEUTROPHILS % (AUTO) 82 % (42-75); PLATELET COUNT 309 10^3/uL (130-400); WHITE BLOOD COUNT 14.5 10^3/uL (4.3-11.0)
[2023-03-28 11:03] LABS: ALBUMIN 3.6 GM/DL (3.2-4.5); BILIRUBIN,TOTAL 0.3 MG/DL (0.1-1.0); CALCIUM 9.1 MG/DL (8.5-10.1); CREATININE SERUM 2.02 MG/DL (0.60-1.30); POTASSIUM 3.8 MMOL/L (3.6-5.0); TOTAL PROTEIN 7.6 GM/DL (6.4-8.2)
[2023-03-28 11:05] LABS: ATYPICAL LYMPHOCYTES 1 %; LYMPHOCYTES % (MANUAL) 9 %; METAMYELOCYTES % 1 %; MONOCYTES % (MANUAL) 6 %; NEUTROPHILS % (MANUAL) 83 %; RBC MORPH NORMAL
== END ==
LOC: WOUNDCARE 09:55
PROVIDERS: ATTEND Family Medicine
DX: S81.811A Laceration without foreign body, right lower leg, initial encounter (principal); L02.415 Cutaneous abscess of right lower limb; I96 Gangrene, not elsewhere classified; I89.0 Lymphedema, not elsewhere classified; E11.9 Type 2 diabetes mellitus without complications; R29.6 Repeated falls; E66.01 Morbid (severe) obesity due to excess calories; F71 Moderate intellectual disabilities; N18.30 Chronic kidney disease, stage 3 unspecified; D50.0 Iron deficiency anemia secondary to blood loss (chronic); J96.21 Acute and chronic respiratory failure with hypoxia; Z68.34 Body mass index [BMI] 34.0-34.9, adult
CPT/HCPCS: 80053; 85007; 85027; G0463; 36415; 99213

== ENCOUNTER → 2023-04-02 | Outpatient (CLI) | payer MEDICARE, MEDICAID | LOC: WOUNDCARE 08:46 | PROVIDERS: ATTEND Family Medicine | DX: S81.811A Laceration without foreign body, right lower leg, initial encounter (principal); I89.0 Lymphedema, not elsewhere classified; E11.22 Type 2 diabetes mellitus with diabetic chronic kidney disease; N18.30 Chronic kidney disease, stage 3 unspecified; R29.6 Repeated falls; E66.01 Morbid (severe) obesity due to excess calories; F70 Mild intellectual disabilities; L02.415 Cutaneous abscess of right lower limb; D50.0 Iron deficiency anemia secondary to blood loss (chronic); E11.52 Type 2 diabetes mellitus with diabetic peripheral angiopathy with gangrene; I96 Gangrene, not elsewhere classified | CPT/HCPCS: 11043; 11046; 97606; G0463 ==

== ENCOUNTER → 2023-04-09 | Outpatient (CLI) | payer MEDICARE, MEDICAID ==
[2023-04-09 10:10] LABS: BASOPHILS % (AUTO) 0 % (0-10); EOSINOPHILS # (AUTO) 0.1 10^3/uL (0.0-0.3); EOSINOPHILS % (AUTO) 1 % (0-10); HEMATOCRIT 30 % (35-52); HEMOGLOBIN 9.2 g/dL (11.5-16.0); LYMPHOCYTES # (AUTO) 1.8 10^3/uL (1.0-4.0); LYMPHOCYTES % (AUTO) 15 % (12-44); MEAN CORPUSCULAR HEMOGLOBIN 29 pg (25-34); MEAN CORPUSCULAR HGB CONC 31 g/dL (32-36); MEAN CORPUSCULAR VOLUME 93 fL (80-99); MEAN PLATELET VOLUME 9.9 fL (9.0-12.2); MONOCYTES # (AUTO) 0.7 10^3/uL (0.0-1.0); MONOCYTES % (AUTO) 6 % (0-12); NEUTROPHILS # (AUTO) 9.1 10^3/uL (1.8-7.8); NEUTROPHILS % (AUTO) 77 % (42-75); PLATELET COUNT 336 10^3/uL (130-400); WHITE BLOOD COUNT 11.8 10^3/uL (4.3-11.0)
[2023-04-09 10:22] LABS: BILIRUBIN,TOTAL 0.3 MG/DL (0.1-1.0); CALCIUM 9.8 MG/DL (8.5-10.1); CREATININE SERUM 1.54 MG/DL (0.60-1.30); POTASSIUM 3.7 MMOL/L (3.6-5.0); TOTAL PROTEIN 8.1 GM/DL (6.4-8.2)
== END ==
LOC: WOUNDCARE 09:05
PROVIDERS: ATTEND Family Medicine
DX: S81.811A Laceration without foreign body, right lower leg, initial encounter (principal); I89.0 Lymphedema, not elsewhere classified; R29.6 Repeated falls; E66.01 Morbid (severe) obesity due to excess calories; F71 Moderate intellectual disabilities; E11.22 Type 2 diabetes mellitus with diabetic chronic kidney disease; N18.30 Chronic kidney disease, stage 3 unspecified; L02.415 Cutaneous abscess of right lower limb; D50.0 Iron deficiency anemia secondary to blood loss (chronic); E11.52 Type 2 diabetes mellitus with diabetic peripheral angiopathy with gangrene; I96 Gangrene, not elsewhere classified
CPT/HCPCS: 11043; 11046; 80053; 82728; 83540; 83550; 84134; 85025; G0463; 36415

== ENCOUNTER → 2023-04-16 | Outpatient (CLI) | payer MEDICARE, MEDICAID | LOC: WOUNDCARE 09:40 | PROVIDERS: ATTEND Family Medicine | DX: S81.811A Laceration without foreign body, right lower leg, initial encounter (principal); I89.0 Lymphedema, not elsewhere classified; E11.22 Type 2 diabetes mellitus with diabetic chronic kidney disease; R29.6 Repeated falls; E44.0 Moderate protein-calorie malnutrition; E66.01 Morbid (severe) obesity due to excess calories; N18.30 Chronic kidney disease, stage 3 unspecified; L02.415 Cutaneous abscess of right lower limb; D50.0 Iron deficiency anemia secondary to blood loss (chronic); E11.52 Type 2 diabetes mellitus with diabetic peripheral angiopathy with gangrene | CPT/HCPCS: 11043; 11045; G0463 ==

== ENCOUNTER → 2023-04-23 | Outpatient (CLI) | payer MEDICARE, MEDICAID | LOC: WOUNDCARE 09:16 | PROVIDERS: ATTEND Family Medicine | DX: S81.811A Laceration without foreign body, right lower leg, initial encounter (principal); I89.0 Lymphedema, not elsewhere classified; R29.6 Repeated falls; E66.01 Morbid (severe) obesity due to excess calories; F71 Moderate intellectual disabilities; E11.22 Type 2 diabetes mellitus with diabetic chronic kidney disease; N18.30 Chronic kidney disease, stage 3 unspecified; L02.415 Cutaneous abscess of right lower limb; D50.0 Iron deficiency anemia secondary to blood loss (chronic); E11.52 Type 2 diabetes mellitus with diabetic peripheral angiopathy with gangrene | CPT/HCPCS: 11042; 11045; G0463 ==

== ENCOUNTER → 2023-04-23 | Outpatient (CLI) | payer MEDICARE, MEDICAID | LOC: CARD 07:42 | PROVIDERS: ATTEND Internal Medicine Cardiovascular Disease | DX: I34.0 Nonrheumatic mitral (valve) insufficiency (principal); I10 Essential (primary) hypertension; I25.10 Atherosclerotic heart disease of native coronary artery without angina pectoris | CPT/HCPCS: 93306 ==